=== PATIENT | male | born 1950 | race Caucasian/White ===

== ENCOUNTER → 2023-06-19 11:01 | Outpatient (REF) | payer MEDICARE, BC, SELFPAY | LOC: DHCBC/DCA 11:01 | PROVIDERS: ATTENDING PHYSICIAN Internal Medicine; FAMILY PHYSICIAN Internal Medicine | DX: E78.1 Pure hyperglyceridemia (principal); R42 Dizziness and giddiness; R06.09 Other forms of dyspnea; R94.31 Abnormal electrocardiogram [ECG] [EKG]; I45.10 Unspecified right bundle-branch block; I44.4 Left anterior fascicular block | CPT/HCPCS: 78452; 93017; A9500; J2785 ==

== ENCOUNTER → 2023-07-12 10:41 | Outpatient (REF) | payer MEDICARE, BC, SELFPAY | LOC: DHCBC HW 10:41 | PROVIDERS: ATTENDING PHYSICIAN Internal Medicine; FAMILY PHYSICIAN Internal Medicine | DX: R42 Dizziness and giddiness (principal); R06.09 Other forms of dyspnea; R94.31 Abnormal electrocardiogram [ECG] [EKG]; I45.10 Unspecified right bundle-branch block; I44.4 Left anterior fascicular block | CPT/HCPCS: 93306 ==

== ENCOUNTER → 2023-08-08 10:12 | Outpatient (REF) | payer MEDICARE, BC, SELFPAY | LOC: HWRAD 10:12 | PROVIDERS: ATTENDING PHYSICIAN Specialist; FAMILY PHYSICIAN Internal Medicine; REFERRING PHYSICIAN Internal Medicine | DX: N20.0 Calculus of kidney (principal) | CPT/HCPCS: 74176 ==

== ENCOUNTER 2023-10-25 12:23 | Emergency (ER) | payer MEDICARE, BC, SELFPAY ==
[2023-10-25 12:26] VITALS: BP 118/83
--- NOTE | 2023-10-25 12:56 | ED.GENMED ---
Addendum entered and electronically signed by Juan Fraga MD 10/26/23 08:30:
I received a call from the lab that patient's blood cultures preliminary positive for gram-negative bacteria. I spoke with the patient on the phone directly and explained results to him; he says he is still having low-grade fevers. He says he has
had bacteremia in the past multiple times. I advised him to come back to the emergency room for reassessment, repeat cultures and likely admission. He assured me he would come right away.
Original Note:
History of Present Illness
General
Chief Complaint: Fever
Time Seen by Provider: 10/25/23 12:45
History of Present Illness
History of Present Illness:
HPI: The patient reports fevers and chills for the past week. He has a history of cutaneous T-cell lymphoma. He takes Targretin orally daily and gets photopheresis. He saw his primary care doctor the day after he developed fevers and reports
having a negative COVID test at that time and was not placed on antibiotics. The doctors at [facility] did place him on fungal medication as well as a triple barrier cream regarding lesion to the left buttock. His oncologist at [facility] placed him on
ketoconazole and antibiotic ointment for the buttock lesion.
EXAM:
GENERAL: Patient appears somewhat weak and debilitated, he is afebrile with room air sats of 99%
HEENT: Moist oral mucosa
CARDIOVASCULAR: No murmurs, normal heart rate, regular rhythm, No chest wall tenderness
PULMONARY: No respiratory distress, breath sounds are clear and equal
ABDOMEN: Soft with no peritoneal signs, no tenderness
NEUROLOGIC: Excellent strength all extremities, no coordination deficits
PSYCHIATRIC: Appropriate mental status, normal insight and judgement
EXTREMITIES: Nontender, no edema, moves all extremities equally
SKIN: There is a hyperkeratotic 2 cm lesion without evidence of cellulitis to the, there is a smaller lesion to the right buttock; there are patches of erythema consistent with known history of cutaneous T-cell lymphoma
TIME OF INITIAL ENCOUNTER: 12:50 PM
NUMBER AND COMPLEXITY OF PROBLEMS ADDRESSED AT THE ENCOUNTER
� Chronic conditions affecting care: Cutaneous T-cell lymphoma, high blood pressure, hyperlipidemia, kidney stones, diabetes
� Acute Exacerbation and/or Progression of Chronic Illness: This is an acute problem
� Differential Diagnosis includes: Sepsis, bacteremia, wound infection, UTI, pneumonia, neutropenic fever
AMOUNT AND/OR COMPLEXITY OF DATA TO BE REVIEWED AND ANALYZED
� I performed an independent evaluation of and my interpretation is:
EKG:
CT:
X-rays: Chest x-ray shows no sign of pneumonia
Laboratory Studies: White count is normal at 7.1, hemoglobin normal, chemistries show BUN of 30 with creatinine of 1.2, lactic normal, total bili at 1.7 with transaminases in the 140s; urinalysis does not show any clear sign of
infection
Other:
� Review of other/old records: White count from March 2023 was 3.4, LFTs were more abnormal in 2021
� Clinical information was obtained by an independent historian:
� Prescriptions/Medications Considered but not given:
� Further testing considered but not performed: Right upper quadrant ultrasound over the patient has no pain and feels that his LFT abnormality may be related to the medication that he is on.
RISK OF COMPLICATIONS AND/OR MORBIDITY OR MORTALITY OF PATIENT MANAGEMENT
� Social determinants of health affecting care: Lives at home, gets cancer care at [facility]
� Discussion with other providers:
� Escalation of care including admission/observation vs risk of discharge considered: The patient reports fevers for the past week but is afebrile here and vital signs are not consistent with sepsis. The lesion on his left
buttock does not show any clear signs of cellulitis or wound infection. I reassessed patient at 3:05 PM. The patient's white blood cell count is normal. Mild transaminase/total bili elevation noted. In 2021, these numbers were even worse. The
patient states that the med that he is on can lead to liver abnormality�he never had any right upper quadrant pain. The patient feels comfortable with going home, he is well-appearing on reassessment.
Past History
Past History
ED Past Medical History: Cancer (T- cell Lymphoma), GERD, HTN, Hypercholesterolemia, NIDDM, Hypothyroidism and Other (sleep apnea, BPH, urinary retention, Kidney stones)
ED Past Surgical History: Brain (Craniotomy 05/02/2013 for removal of right frontal meningioma), Orthopedic (Left total knee replacement.), Urological (stent Kidney) and Other (hernia)
Social History
Tobacco: Non-smoker
Alcohol: None
Drug: None
Personal:
Living: with family
Family History
Family History: Other (Noncontributory)
Phy Exam
Physical Exam
Physical Exam:
See HPI
Course
Orders/Labs/Results
Orders:
Orders
10/25/23 12:41
Complete Blood Count/With Diff Urgent
Comprehensive Metabolic Panel Urgent
Lactic Acid Urgent
10/25/23 12:42
Blood Culture Urgent
PAT Source: Blood/Venous
Specimen Description:
10/25/23 14:11
Urinalysis Reflex To Culture Urgent
Date Specimen was Collected: 10/25/23
Time Specimen was Collected: 14:04
Urine Microscopic Reflex Cult Urgent
10/25/23 14:13
CR Chest - 2 Views Urgent
Comment:
Reason For Exam: fever
Abnormal Lab Results
10/25/23 10/25/23
12:41 14:11
Abs Immat Gran (auto) 0.1 H 10^3/uL
(0-0.05)
Absolute Lymphs (auto) 0.2 L 10^3/uL
(1.2-3.4)
Immature Gran % 0.8 H %
(0-0.5)
Neutrophils % 87.5 H %
(42.2-75.2)
Lymphocytes % 3.4 L %
(20.5-51.1)
BUN 30 H mg/dl
(9-20)
Glucose 115 H mg/dl
(70-99)
Total Bilirubin 1.7 H mg/dl
(0.2-1.3)
AST 149 H U/L
(17-59)
ALT 142 H U/L
(0-50)
Urine Ketones Trace A
(Negative)
Urine Bilirubin 1+ A
(Negative)
Urine Urobilinogen 2+ A
(Neg - 1+)
Leukocyte Esterase Rfl Trace A
(Negative)
Urine Bacteria (Reflex) Few A
(Negative)
10/25/23 12:41
10/25/23 12:41
Vital Signs
Initial and Last Documented VS:
Initial Vital Signs
Temp Pulse Resp BP Pulse Ox
97.7 F 71 22 118/83 99
10/25/23 12:26 10/25/23 12:26 10/25/23 12:26 10/25/23 12:26 10/25/23 12:26
Last Documented Vital Signs
Temp Pulse Resp BP Pulse Ox
99.3 F 85 18 106/61 92
10/25/23 14:03 10/25/23 14:03 10/25/23 14:03 10/25/23 14:03 10/25/23 14:03
*Critical Care Note
Total Time (30-74mins, 75-104mins- exclusive of procedures): Not Applicable
ED Attending Note
-
Portions of this chart may have been created with voice recognition software.� Occasional wrong word or��sound alike� substitutions may have occurred due to the inherent limitations of voice recognition software.
Discharge Plan
Departure
Prescriptions:
No Action
levothyroxine 100 MCG tablet
100 mcg PO DAILY AT 0700
ketoconazole 1 APPLIC cream
1 dose topical BIDPRN PRN (Reason: fungus)
fenofibrate nanocrystallized 145 MG tablet
217.5 mg PO QPM
acetaminophen [Tylenol Extra Strength] 500 MG tablet
1,000 mg PO BID
Actimmune 100 MCG/0.5 ML solution
0.3 ml SC MOWEFR
Hold Instructions: Resume on 05/06/22. hold until cleared by oncology
Patient Comments:
NEEDS TO BE REFRIDGERATED PT BROUGHT IN
halobetasol propionate 1 APPLIC ointment
1 applic topical BIDPRN PRN (Reason: itch, lesions, mostly on feet)
Patient Comments:
Patient uses this on the more difficult spots, he applied to bilateral feet this morning.
ezetimibe 10 MG tablet
10 mg PO QPM
Centrum Silver 1 EACH tablet
1 ea PO DAILY
amlodipine 5 MG tablet
5 mg PO DAILY
sennosides [Senokot] 8.6 mg Tablet
17.2 mg PO HS
triamcinolone acetonide 0.1 % Cream
1 applic TOPICAL BID
bisacodyl [Dulcolax (bisacodyl)] 5 mg Tablet,Delayed Release (Dr/Ec)
10 mg PO HS
ramipril 10 mg Capsule
10 mg PO DAILY
rosuvastatin [Crestor] 5 mg Tablet
5 mg PO HS
omega-3 acid ethyl esters [Lovaza] 1 gram Capsule
4 cap PO BID
aspirin 81 mg Capsule
81 mg PO DAILY
Saline Nasal 0.65 % Aerosol,[place]
2 spray INTRANASAL Q4H PRN (Reason: dry nose/congestion)
pantoprazole 40 mg Tablet,Delayed Release (Dr/Ec)
40 mg PO BID Qty: 60 0RF
amoxicillin 500 mg capsule
500 mg PO TID Qty: 6 0RF
Referrals:
Demetrius,Aaron I., DO [Family Provider] -
Interventions
Interventions:
*Risk Screen - Suicide Last Done: 10/25/23 14:23
*General Assessment Last Done: 10/25/23 14:02
*Neglect/Abuse Screening Last Done: 10/25/23 14:23
ED- Fall Risk Assessment Last Done: 10/25/23 14:23
*ED COVID-19 Vaccine History Last Done: 10/25/23 12:29
ED- Neurological Assessment Last Done: 10/25/23 14:23
Discharge Date and Time
Print Language: TANZANIAN
[2023-10-25 13:01] LABS: % Basophils 0.4 % (0-2); % Eosinophils 0.6 % (0-6); % Immature Granulocytes 0.8 % (0-0.5); % Lymphocytes 3.4 % (20.5-51.1); % Monocytes 7.3 % (1.7-9.3); % Neutrophils 87.5 % (42.2-75.2); Absolute Immature Granulocytes 0.1 10^3/uL (0-0.05); Absolute Lymphocytes 0.2 10^3/uL (1.2-3.4); Absolute Monocytes 0.5 10^3/uL (0.1-0.6); Absolute Neutrophils 6.2 10^3/uL (1.4-6.5); Hematocrit 47.7 % (39.0-52.0); Mean Corp Hgb Conc. 33.5 g/dL (33.0-37.0); Mean Corpuscular Hgb 30.2 pg (27.0-31.0); Mean Platelet Volume 9.5 fL (7.4-10.4); Nucleated Red Blood Cells % 0 % (-); Platelet Count 192 10^3/uL (130-400); Red Cell Dist. Width 12.7 % (11.5-14.5); White Blood Cell Count 7.1 10^3/uL (4.8-10.8)
[2023-10-25 13:16] LABS: ALT (SGPT) 142 U/L (0-50); AST (SGOT) 149 U/L (17-59); Albumin 4.4 g/dl (3.5-5.0); Alkaline Phosphatase 65 U/L (38-126); Blood Urea Nitrogen 30 mg/dl (9-20); Calcium 9.9 mg/dl (8.4-10.2); Carbon Dioxide 25 mmol/L (22-30); Chloride 101 mmol/L (98-107); Glucose 115 mg/dl (70-99); Potassium 4.1 mmol/L (3.5-5.1); Sodium 136 mmol/L (135-145); Total Bilirubin 1.7 mg/dl (0.2-1.3); Total Protein 7.3 g/dl (6.3-8.2); eGFR > 60.00
[2023-10-25 13:19] LABS: Lactic Acid 1.4 mmol/L (0.7-2.0)
[2023-10-25 14:03] VITALS: BP 106/61
[2023-10-25 14:21] LABS: Urine Albumin Trace (Neg - Trace); Urine Bilirubin 1+ (Negative); Urine Character Clear (Clear); Urine Color Yellow; Urine Glucose Negative (Negative); Urine Ketone Trace (Negative); Urine Leukocyte Trace (Negative); Urine Nitrite Negative (Negative); Urine Occult Blood Negative (Negative); Urine Urobilinogen 2+ (Neg - 1+); Urine pH 6.5 (5.0-9.0)
[2023-10-25 14:56] LABS: Urine Mucus Many; Urine Squamous Cell 0-2 /LPF (Few); Urine Urothelial Cell 0-2 /LPF (FEW)
[2023-10-25 14:57] LABS: Urine Amorphous Seen; Urine Bacteria Few (Negative); Urine Red Blood Cell 0-2 /HPF (0-2); Urine White Cell 0-2 /HPF (0-5)
== END 2023-10-25 15:45 | disposition home or self-care (01) ==
LOC: EMR 12:23
PROVIDERS: EMERGENCY PHYSICIAN Emergency Medicine; FAMILY PHYSICIAN Internal Medicine
DX: R50.9 Fever, unspecified (principal); R78.81 Bacteremia; C84.A0 Cutaneous T-cell lymphoma, unspecified, unspecified site; L98.8 Other specified disorders of the skin and subcutaneous tissue; I10 Essential (primary) hypertension; K21.9 Gastro-esophageal reflux disease without esophagitis; E11.9 Type 2 diabetes mellitus without complications; E03.9 Hypothyroidism, unspecified; E78.00 Pure hypercholesterolemia, unspecified; G47.30 Sleep apnea, unspecified; Z87.442 Personal history of urinary calculi; N40.1 Benign prostatic hyperplasia with lower urinary tract symptoms; R33.8 Other retention of urine; Z96.652 Presence of left artificial knee joint; Z79.82 Long term (current) use of aspirin; Z88.1 Allergy status to other antibiotic agents; Z88.8 Allergy status to other drugs, medicaments and biological substances; Z91.048 Other nonmedicinal substance allergy status
CPT/HCPCS: 99283; 71046; 80053; 81003; 81015; 83605; 85025; 87040; 87205

== ENCOUNTER 2023-10-26 14:33 | Inpatient (IN) | payer MEDICARE, BC, SELFPAY ==
[2023-10-26] VITALS (10 sets, daily range): BP systolic 75–128; BP diastolic 21–79; BMI 37.9; BMI 37.1
--- NOTE | 2023-10-26 10:09 | ED.GENMED ---
History of Present Illness
General
Chief Complaint: Fever
Source: patient
Exam Limitations: none
Time Seen by Provider: 10/26/23 09:40
Nursing documentation reviewed up to this point in time: agreed with
History of Present Illness
History of Present Illness:
73 yo male presents to the emergency department c/o fevers for past several days. History of cutaneous T-cell lymphoma blood photopheresis as well as oral chemotherapy, followed at [facility]. He had positive blood
cultures that were drawn yesterday for gram-positive bacilli. He has been diaphoretic. He last took ibuprofen at 8 AM.
Past History
Past History
ED Past Medical History: Cancer (T- cell Lymphoma), GERD, HTN, Hypercholesterolemia, NIDDM, Hypothyroidism and Other (sleep apnea, BPH, urinary retention, Kidney stones)
ED Past Surgical History: Brain (Craniotomy 05/02/2013 for removal of right frontal meningioma), Orthopedic (Left total knee replacement.), Urological (stent Kidney) and Other (hernia)
Social History
Tobacco: Non-smoker
Alcohol: None
Drug: None
Personal:
Living: with family
Family History
Family History: Other (Noncontributory)
Review of Systems
Review of Systems
Allergies reviewed?: Yes
All Other Systems: Not applicable
Constitutional: Reports fever and chills
EENT: Reports no symptoms
Respiratory: Reports no symptoms
Cardiac: Reports diaphoresis
ABD/GI: Reports no symptoms
: Reports no symptoms
Musculoskeletal: Reports no symptoms
Skin: Reports other (Chronic wound left buttock)
Neurological: Reports no symptoms
Endocrine: Reports no symptoms
Hematologic/Lymphatic: Reports no symptoms
Psychiatric: Reports no symptoms
Phy Exam
Physical Exam
Physical Exam:
Physical Exam
General: Afebrile, diaphoretic
Neck: supple. no meningeal signs. normal posterior pharynx
Heart: s1/s2 regular rate and rhythm, no murmur. equal radial
pulses.
HEENT: Pupils equal round reactive to light, EOMI
Lungs: no acute respiratory distress. clear bilaterally
Abdomen: normal bowel sounds. not tender. no CVAT
Neuro: alert and oriented. no focal neurological deficits cranial nerves II through XII intact
Skin: Healing wound left buttocks, no drainage
Psychiatric: well kept. interactive and cooperative
Extremities: no edema. no calf tenderness. negative homans. good distal pulses
Course
Orders/Labs/Results
Orders:
Orders
10/26/23 09:55
IV Insert/Care/Rem.- Treatment PRN
Complete Blood Count/With Diff Urgent
Comprehensive Metabolic Panel Urgent
Urinalysis Reflex To Culture Urgent
10/26/23 09:59
Cefepime HCl [Maxipime] 2,000 mg IV NOW STA
10/26/23 10:00
Lactic Acid Q4H
Comment: CANCEL 2nd LACTIC ACID IF 1st LACTIC ACID IS LESS THAN 2
Blood Culture Q30M
PAT Source: Blood/Venous
Specimen Description:
10/26/23 10:30
Blood Culture Q30M
PAT Source: Blood/Venous
Specimen Description:
10/26/23 14:00
Lactic Acid Q4H
Comment: CANCEL 2nd LACTIC ACID IF 1st LACTIC ACID IS LESS THAN 2
Vital Signs
Initial and Last Documented VS:
Initial Vital Signs
Temp Pulse Resp BP Pulse Ox
98.4 F 92 18 113/71 92
10/26/23 09:33 10/26/23 09:33 10/26/23 09:33 10/26/23 09:33 10/26/23 09:33
Last Documented Vital Signs
Temp Pulse Resp BP Pulse Ox
98.4 F 92 18 113/71 92
10/26/23 09:33 10/26/23 09:33 10/26/23 09:33 10/26/23 09:33 10/26/23 09:33
MDM/Problems Addressed
Differential Diagnosis Includes:
Bacteremia, UTI
MDM/Problems Addressed:
73-year-old male with bacteremia, unclear source. IV cefepime ordered. Repeat set of blood cultures ordered. Admit to hospitalist.
Chronic conditions affecting care: Cancer (Cutaneous T-cell lymphoma)
Acute Exacerbation and/or Progression of Chronic Illness: Cancer (Cutaneous T-cell lymphoma)
*Pulse Oximetry
Patient hypoxic: no
*EKG
Interpreted by ED Provider?: NA
*Therapeutic Dietitian Interpretation
Rate: Therapeutic Dietitian- N/A
*Critical Care Note
Total Time (30-74mins, 75-104mins- exclusive of procedures): Not Applicable
Data Reviewed
Review of Other/Old Records Reveals: Progress Notes (Prior visits for bacteremia, of which were of a GI source in the past.)
Source: records
Patient Management
Social determinants of health affecting care: Strong social support
Discussion with other providers: Hospitalist
Escalation/DeEscalation of care consider admission/obs:
Admit indicated
ED Attending Note
-
Portions of this chart may have been created with voice recognition software.� Occasional wrong word or��sound alike� substitutions may have occurred due to the inherent limitations of voice recognition software.
Discharge Plan
Departure
Admit to: Med/Surg
Presentation/result/management discussed w/ accepting MD/DO: Hospitalist
Patient with high blood pressure during this ER visit?: No
Condition: Fair
Discharge Problem:
Gram-negative bacteremia, Cutaneous T-cell lymphoma
Prescriptions:
No Action
levothyroxine 100 MCG tablet
100 mcg PO DAILY AT 0700
ketoconazole 1 APPLIC cream
1 dose topical BIDPRN PRN (Reason: fungus)
fenofibrate nanocrystallized 145 MG tablet
217.5 mg PO QPM
acetaminophen [Tylenol Extra Strength] 500 MG tablet
1,000 mg PO BID
Actimmune 100 MCG/0.5 ML solution
0.3 ml SC MOWEFR
Hold Instructions: Resume on 05/06/22. hold until cleared by oncology
Patient Comments:
NEEDS TO BE REFRIDGERATED PT BROUGHT IN
halobetasol propionate 1 APPLIC ointment
1 applic topical BIDPRN PRN (Reason: itch, lesions, mostly on feet)
Patient Comments:
Patient uses this on the more difficult spots, he applied to bilateral feet this morning.
ezetimibe 10 MG tablet
10 mg PO QPM
Centrum Silver 1 EACH tablet
1 ea PO DAILY
amlodipine 5 MG tablet
5 mg PO DAILY
sennosides [Senokot] 8.6 mg Tablet
17.2 mg PO HS
triamcinolone acetonide 0.1 % Cream
1 applic TOPICAL BID
bisacodyl [Dulcolax (bisacodyl)] 5 mg Tablet,Delayed Release (Dr/Ec)
10 mg PO HS
ramipril 10 mg Capsule
10 mg PO DAILY
rosuvastatin [Crestor] 5 mg Tablet
5 mg PO HS
omega-3 acid ethyl esters [Lovaza] 1 gram Capsule
4 cap PO BID
aspirin 81 mg Capsule
81 mg PO DAILY
Saline Nasal 0.65 % Aerosol,[place]
2 spray INTRANASAL Q4H PRN (Reason: dry nose/congestion)
pantoprazole 40 mg Tablet,Delayed Release (Dr/Ec)
40 mg PO BID Qty: 60 0RF
amoxicillin 500 mg capsule
500 mg PO TID Qty: 6 0RF
Referrals:
Aaron Romo I., DO [Family Provider] -
Interventions
Interventions:
*General Assessment Last Done: 10/26/23 09:33
*ED COVID-19 Vaccine History Last Done: 10/26/23 09:33
Discharge Date and Time
Print Language: VENEZUELAN
[2023-10-26] MEDS: MAXIPIME 2000 MG IV ×2 (10:45→21:39)
[2023-10-26 11:22] LABS: % Basophils 0.6 % (0-2); % Eosinophils 0.4 % (0-6); % Immature Granulocytes 0.9 % (0-0.5); % Lymphocytes 6.9 % (20.5-51.1); % Monocytes 11.5 % (1.7-9.3); % Neutrophils 79.7 % (42.2-75.2); Absolute Immature Granulocytes 0.1 10^3/uL (0-0.05); Absolute Lymphocytes 0.5 10^3/uL (1.2-3.4); Absolute Monocytes 0.8 10^3/uL (0.1-0.6); Absolute Neutrophils 5.4 10^3/uL (1.4-6.5); Hematocrit 47.1 % (39.0-52.0); Hemoglobin 15.9 g/dL (13.0-18.0); Mean Corp Hgb Conc. 33.8 g/dL (33.0-37.0); Mean Corpuscular Hgb 30.3 pg (27.0-31.0); Mean Corpuscular Volume 89.9 fL (80.0-94.0); Mean Platelet Volume 9.8 fL (7.4-10.4); Nucleated Red Blood Cells % 0 % (-); Platelet Count 212 10^3/uL (130-400); Red Blood Cell Count 5.24 10^6/uL (4.70-6.10); Red Cell Dist. Width 12.9 % (11.5-14.5); White Blood Cell Count 6.8 10^3/uL (4.8-10.8)
[2023-10-26 11:31] LABS: Urine Albumin Trace (Neg - Trace); Urine Bilirubin 2+ (Negative); Urine Character Clear (Clear); Urine Color Brown; Urine Glucose Negative (Negative); Urine Ketone Trace (Negative); Urine Leukocyte Trace (Negative); Urine Nitrite Negative (Negative); Urine Occult Blood Negative (Negative); Urine Urobilinogen 2+ (Neg - 1+)
[2023-10-26 11:32] LABS: ALT (SGPT) 146 U/L (0-50); AST (SGOT) 112 U/L (17-59); Albumin 4.3 g/dl (3.5-5.0); Alkaline Phosphatase 61 U/L (38-126); Blood Urea Nitrogen 33 mg/dl (9-20); Calcium 9.6 mg/dl (8.4-10.2); Carbon Dioxide 28 mmol/L (22-30); Chloride 98 mmol/L (98-107); Estimated Creatinine Clearance 57 ml/min; Glucose 118 mg/dl (70-99); Potassium 3.7 mmol/L (3.5-5.1); Sodium 137 mmol/L (135-145); Total Bilirubin 2.2 mg/dl (0.2-1.3); Total Protein 7.2 g/dl (6.3-8.2); eGFR 48.85
[2023-10-26 11:47] LABS: Urine Bacteria Few (Negative); Urine Calcium Oxalate Crystals Seen
[2023-10-26] MEDS: TYLENOL 650 MG PO (12:35)
--- NOTE | 2023-10-26 15:07 | CON.ONC ---
Addendum entered and electronically signed by Lasha Wang DO 10/27/23 13:30:
agree with assessment and plan by Sheila-- await cultures and plans for antibiotic therapy to follow
Original Note:
Impression
Impression
Cutaneous T-cell lymphoma s/p photopheresis and oral chemotherapy (Targretin)
Fever/chills with rigors
Acute bacteremia
Non-healing left buttock wound
Plan
Plan
Follow CBC w/ diff daily
Transfuse as needed to maintain Hgb >7.5, PLT >>20
Positive blood cultures in progress - await final results
Consider Infectious Disease consult: wound culture/urine culture
Supportive care with IVF, IV antibiotics
Additional labs have been ordered and remain pending: LDH, retic, haptoglobin, uric acid
Request records from [facility]
Discussed with patient and spouse to bring home medications in for pharmacy profiling
We will follow.
Patient History
History of Present Illness
Evan Muniz is a 73 year old patient previously known to Dr. Purdy with [facility] for history of T-cell lymphoma/mycoses fungoides. He was last seen in with us in Apr 2016 as he was coordinating care between [facility] and [facility] for medication
management. He has photopheresis Q7 weeks and is maintained on Targretin. He notes that in 2021, he experienced fever/chills/sepsis approximately 2 weeks following photopheresis treatment. He notes at this time, it was difficult to locate the source
of the infection but he believes it to be GI. He had his most recent photo treatment the first week of October 2023. He began to experience rigors and fevers at home with T max 101.8. He went to his PCP. He had been taking Ibuprofen/Tylenol which
masked his fever when he went to PCP office. Preliminary blood cultures were positive and he was instructed to return to the ER for further evaluation/treatment. He notes a non-healing wound on his left buttocks that is draining. He is using topical
triple paste and was prescribed antifungals. He states despite this treatment, it is not healing. He also has wounds to bilateral palms and elbows. He denies evidence of bleeding elsewhere. Denies pain, night sweats or weight loss. He follows
closely with Dr. Gauri Jacinto at [facility]. He notes that for him a WBC count of 6-7 is high as he historically has WBC count of 3-4. He is being admitted for IV antibiotics.
Past-Medical/Surgical History
[facility] meningioma s/p resection (2012)
Hypertension
Hypercholesterolemia
GERD
Cataracts
Arthritis
Hernia repair (1989)
Left TKR (2011)
Nephrolithiasis
Hypothyroidism
DM
SHYAM
BPH
Patient Medication
�Medication �Instructions �Recorded �Confirmed �Last Taken �Type
levothyroxine 100 mcg tablet 100 mcg PO DAILY@0600 Thyroid 09/01/15 10/26/23 10/26/23 History
acetaminophen 500 mg tablet 1,000 mg PO BID Pain 11/18/15 10/26/23 10/25/23 History
(Tylenol Extra Strength)
ezetimibe 10 mg tablet 10 mg PO QPM High cholesterol 09/13/20 10/26/23 10/25/23 History
halobetasol propionate 0.05 % 1 applic topical DAILY foot lesions 09/13/20 10/26/23 03/02/21 20:00 History
topical ointment
aspirin 81 mg capsule 81 mg PO DAILY Blood clot 04/14/22 10/26/23 10/25/23 History
prevention/tx
bisacodyl 5 mg tablet,delayed 10 mg PO HS Constipation 04/14/22 10/26/23 10/25/23 History
release (Dulcolax (bisacodyl))
ramipril 10 mg capsule 10 mg PO DAILY Blood pressure 04/14/22 10/26/23 10/26/23 History
triamcinolone acetonide 0.1 % 1 applic topical TIDPRN PRN hand 04/14/22 10/26/23 Unknown History
topical cream pain
bexarotene 75 mg capsule 75 mg PO QPM Cancer 10/26/23 10/26/23 10/25/23 History
chlorthalidone 50 mg tablet 50 mg PO DAILY Blood Pressure 10/26/23 10/26/23 10/26/23 History
coenzyme Q10 100 mg capsule 100 mg PO DAILY Supplement 10/26/23 10/26/23 10/25/23 History
(CoQ-10)
diclofenac sodium 1 % topical gel 2 g topical QID bilateral knee pain 10/26/23 10/26/23 10/25/23 History
(Aspercreme Arthritis Pain)
docusate sodium 50 mg capsule 150 mg PO HS Constipation 10/26/23 10/26/23 10/25/23 History
fenofibrate 160 mg tablet 320 mg PO QPM High Cholesterol 10/26/23 10/26/23 10/25/23 History
fenofibrate 40 mg tablet 40 mg PO QPM High Cholesterol 10/26/23 10/26/23 10/25/23 History
ibuprofen 600 mg tablet 600 mg PO DAILY Pain 10/26/23 10/26/23 10/26/23 History
icosapent ethyl 1 gram capsule 2 g PO BID High Cholesterol 10/26/23 10/26/23 10/26/23 History
interferon gamma-1b (Actimmune) 66 mcg SC MOWEFR@1800 Cancer 10/26/23 10/26/23 10/24/23 History
magnesium glycinate 1.5 tab PO MOWEFR Electrolyte 10/26/23 10/26/23 10/26/23 History
Repletion
magnesium glycinate 470 mg PO SUTUTHSA Electrolyte 10/26/23 10/26/23 10/25/23 History
Repletion
mechlorethamine 0.016 % topical 1 applic topical HS cancer skin 10/26/23 10/26/23 10/22/23 History
gel (Valchlor) patches
mupirocin 2 % topical ointment 1 applic topical BID buttocks 10/26/23 10/26/23 10/25/23 History
pantoprazole 40 mg tablet,delayed 40 mg PO DAILY Gastrointestinal 10/26/23 10/26/23 10/26/23 History
release Issue
therapeutic multivitamin 1 tab PO DAILY Supplement 10/26/23 10/26/23 10/26/23 History
Review of Systems
-
History Source: Patient, Family and Records
Constitutional: Reports No Symptoms
EENT: Reports No Symptoms
Respiratory: Reports No Symptoms
Cardiac: Reports No Symptoms
GI: Reports No Symptoms
Breast: Reports N/A
: Reports No Symptoms
Musculoskeletal: Reports Myalgias
Skin: Reports Rash and Sores
Neuro: Reports No Symptoms
Endocrine: Reports No Symptoms
Hematologic/Lymphatic: Reports No Symptoms
Allergy / Immunology: Reports No Symptoms
Psych: Reports No Symptoms
Physical Exam
-
Patient sitting on the side of the stretcher awaiting transfer to fourth floor. Spouse at bedside. He denies fevver/chills at this time.
General: Well Developed, Well Nourished, No Apparent Distress, Comfortable, Conversant, Appears Chronically Ill and Obese; Negative Pain, Fever, Chills or Sweats
HEENT: Negative Jaundice
Cardiology: S1 and S2
Pulmonary: Other (diminished, Room air )
GI: Normal Bowel Sounds
Musculoskeletal: No Edema
Extremities: Pulses Present
Neurology: Non Focal
Skin: Warm, Dry, Rash, Ulcers, Lesions and Other (left buttock wound, b/l peeling palmar rash, dry skin, pallor)
Hematologic / Lymphatic: No Lymphadenopathy
Psych: Calm
Labs
Lab Results
WBC 6.8 10^3/uL (4.8-10.8) 10/26/23 10:54
RBC 5.24 10^6/uL (4.70-6.10) 10/26/23 10:54
Hgb 15.9 g/dL (13.0-18.0) 10/26/23 10:54
Hct 47.1 % (39.0-52.0) 10/26/23 10:54
MCV 89.9 fL (80.0-94.0) 10/26/23 10:54
MCH 30.3 pg (27.0-31.0) 10/26/23 10:54
MCHC 33.8 g/dL (33.0-37.0) 10/26/23 10:54
RDW 12.9 % (11.5-14.5) 10/26/23 10:54
Plt Count 212 10^3/uL (130-400) 10/26/23 10:54
MPV 9.8 fL (7.4-10.4) 10/26/23 10:54
Abs Immat Gran (auto) 0.1 10^3/uL (0-0.05) H 10/26/23 10:54
Absolute Neuts (auto) 5.4 10^3/uL (1.4-6.5) 10/26/23 10:54
Absolute Lymphs (auto) 0.5 10^3/uL (1.2-3.4) L 10/26/23 10:54
Absolute Monos (auto) 0.8 10^3/uL (0.1-0.6) H 10/26/23 10:54
Absolute Eos (auto) 0.0 10^3/uL (0-0.7) 10/26/23 10:54
Absolute Basos (auto) 0.0 10^3/uL (0-0.2) 10/26/23 10:54
Immature Gran % 0.9 % (0-0.5) H 10/26/23 10:54
Neutrophils % 79.7 % (42.2-75.2) H 10/26/23 10:54
Lymphocytes % 6.9 % (20.5-51.1) L 10/26/23 10:54
Monocytes % 11.5 % (1.7-9.3) H 10/26/23 10:54
Eosinophils % 0.4 % (0-6) 10/26/23 10:54
Basophils % 0.6 % (0-2) 10/26/23 10:54
Creatinine 1.5 mg/dL (0.7-1.3) H 10/26/23 10:54
Vital Signs
Vital Signs
Temp Pulse Resp BP Pulse Ox
98.4 F 78 18 128/62 92
10/26/23 09:33 10/26/23 13:00 10/26/23 13:00 10/26/23 13:00 10/26/23 09:33
10/25/23 CXR: No findings to suggest pneumonia.
--- NOTE | 2023-10-26 16:14 | CON.ID ---
Consultation
-
Date/Time Consultation Requested: 10/26/23 14:48
Date/Time Consultation Performed: 10/26/23 16:16
Requesting Provider: Dr Gonzalez
Performing Provider: Dr Medina
Reason for Consultation: GNR bacteremia
Chief Complaint / Past History
Chief Complaint
fevers
History of Present Illness
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 He reports nonhealing wound on timmy L buttocks with drainae. He has been using OTC
tripple antibiotic cream and antifungals. There ae also wounds on the bilateral palms and elbows. No night sweats or weight loss. His baseline WBC is 3-4 and oncology comments at 6-7 is high for him. He has blood cultures drawn outpatient which
resulted with GNR and he presented here for further management.
Since arrival here afebrile, bp stable, with wbc 7.1 on arrival and 6.8 today, hgb 15.9, plt 212,L shift is noted, eos are present, cr 1.5 previously 1.2, K 3.7, lactic acid 1.0, t bili 2.2, ast 112, alt 146, alk phos 61, CXR: no infiltrates 10/24
single blood culture on file here with GNR, blood cultures x2 now in progress, ua 6-10 wbc/hpf,
Past History
Additional Past Medical History:
Combined medical and surgical history:
[employer] meningioma s/p resection (2012)
Hypertension
Hypercholesterolemia
GERD
Cataracts
Arthritis
Hernia repair (1989)
Left TKR (2011)
Nephrolithiasis
Hypothyroidism
DM
SHYAM
BPH
Allergy History:
azithromycin Allergy (Verified 10/26/23 09:34)
Rash
pollen extracts Allergy (Verified 10/26/23 09:34)
Hayfever, rosefever
tamsulosin [From Flomax] Allergy (Verified 10/26/23 09:34)
Dizziness
Olgoqol-JXT-UbI Reductase Inhibitor Adverse Reaction (Verified 10/26/23 09:34)
'sometimes they bother me but I am on one now'
Social History
Tobacco: Non-Smoker
Alcohol: None
Drug: None
Family History
Family History: Not Pertinent
Review of Systems
Review of Systems
General: Fever and Chills
All systems: All other systems were reviewed and were negative
Vital Signs
Temp Pulse Resp BP Pulse Ox
98.4 F 80 14 110/73 92
10/26/23 09:33 10/26/23 15:45 10/26/23 15:45 10/26/23 15:00 10/26/23 09:33
Physical Exam
Physical Exam
Constitutional: No Acute Distress
Cardiovascular: Regular Rate and S1/S2; Negative Murmur or Rub
Pulmonary: Clear and Symmetric; Negative Wheezes, Rales or Rhonchi
Gastrointestinal: Soft, Non Tender, Non Distended and Normal Bowel Sounds
Skin: Warm and Dry; Negative Rash or Jaundice
Wound: Other (open wounds on the palms without erythema, warmth tenderness; buttock wound with scant drainage on the briefs, elbows rough skin but no wounds)
Lab / Diagnostic Study Results
10/26/23 10:54
10/26/23 10:54
Abs Immat Gran (auto) 0.1 10^3/uL (0-0.05) H 10/26/23 10:54
Absolute Neuts (auto) 5.4 10^3/uL (1.4-6.5) 10/26/23 10:54
Absolute Lymphs (auto) 0.5 10^3/uL (1.2-3.4) L 10/26/23 10:54
Absolute Monos (auto) 0.8 10^3/uL (0.1-0.6) H 10/26/23 10:54
Absolute Basos (auto) 0.0 10^3/uL (0-0.2) 10/26/23 10:54
Immature Gran % 0.9 % (0-0.5) H 10/26/23 10:54
Neutrophils % 79.7 % (42.2-75.2) H 10/26/23 10:54
Lymphocytes % 6.9 % (20.5-51.1) L 10/26/23 10:54
Monocytes % 11.5 % (1.7-9.3) H 10/26/23 10:54
Eosinophils % 0.4 % (0-6) 10/26/23 10:54
Basophils % 0.6 % (0-2) 10/26/23 10:54
Lactic Acid 1.0 mmol/L (0.7-2.0) 10/26/23 10:54
Ur Squamous Epith Cells 3-5 /LPF (Few) 10/26/23 10:55
Microbiology Results
Micro:
10/26/23 10:54 Blood Culture - Pending
Blood/Venous
10/26/23 10:55 Blood Culture - Pending
Blood/Venous
Assessment / Plan
GNR Bacteremia
Relative Leukocytosis - patient baseline 3-4
Cutaneous T cell Lymphoa on chemotherapy
Class II obesity
- blood cultures x2 in progress
- check qtc
- continued cefepime pending ID and sensi of the GNR
- follow fever curve, note relative leukocytosis compared to patients baseline
[2023-10-26 16:35] LABS: Reticulocyte Count 1.9 % (0.4-2.8)
[2023-10-26 16:51] LABS: LDH 234 U/L (120-246); Uric Acid 6.4 mg/dl (3.5-8.5)
--- NOTE | 2023-10-26 17:19 | TRANSFER ---
Pt admitted into room 435-1 from ED, ambulated from stretcher to walker, at bedside. Pt AAOx3. Wounds noted to the BL buttock, BL palms, and BL plantar feet, wound consult placed. Patient oriented to room and plan of care. Home medications sent
to pharmacy.
[2023-10-26] MEDS: LOVENOX 40 MG SC (18:25)
[2023-10-26] MEDS: ZETIA 10 MG PO (18:25)
[2023-10-26] MEDS: TRICOR 48 MG PO (18:25)
[2023-10-26] MEDS: TRICOR 290 MG PO (18:25)
[2023-10-26] MEDS: DICLOFENAC 1% TOPICAL GEL 2 GRAM TOPICAL ×2 (18:26→23:16)
[2023-10-26] MEDS: NON-FORMULARY ITEM 75 MG PO (18:26)
--- NOTE | 2023-10-26 20:34 | HPS.HSE ---
Addendum entered and electronically signed by Leisa Mccollum MD 10/26/23 21:13:
Patient seen and examined independently--agree with plan set forth by Dr. Martinez
Allergies
Allergy/AdvReac Type Severity Reaction Status Date / Time
azithromycin Allergy Rash Verified 10/26/23 09:34
pollen extracts Allergy Hayfever, Verified 10/26/23 09:34
rosefever
Wqbainc-PQS-FwH Reductase Allergy 'sometimes Verified 10/26/23 16:18
Inhibitor they
bother me
but I am
on one now'
tamsulosin [From Flomax] Allergy Dizziness Verified 10/26/23 09:34
Home Medications
levothyroxine 100 mcg tablet 100 mcg PO DAILY@0600 Thyroid 09/01/15
acetaminophen 500 mg tablet (Tylenol Extra Strength) 1,000 mg PO BID Pain 11/18/15
ezetimibe 10 mg tablet 10 mg PO QPM High cholesterol 09/13/20
halobetasol propionate 0.05 % topical ointment 1 applic topical DAILY foot lesions 09/13/20
aspirin 81 mg capsule 81 mg PO DAILY Blood clot prevention/tx 04/14/22
bisacodyl 5 mg tablet,delayed release (Dulcolax (bisacodyl)) 10 mg PO HS Constipation 04/14/22
ramipril 10 mg capsule 10 mg PO DAILY Blood pressure 04/14/22
triamcinolone acetonide 0.1 % topical cream 1 applic topical TIDPRN PRN hand pain 04/14/22
bexarotene 75 mg capsule 75 mg PO QPM Cancer 10/26/23
chlorthalidone 50 mg tablet 50 mg PO DAILY Blood Pressure 10/26/23
coenzyme Q10 100 mg capsule (CoQ-10) 100 mg PO DAILY Supplement 10/26/23
diclofenac sodium 1 % topical gel (Aspercreme Arthritis Pain) 2 g topical QID bilateral knee pain 10/26/23
docusate sodium 50 mg capsule 150 mg PO HS Constipation 10/26/23
fenofibrate 160 mg tablet 320 mg PO QPM High Cholesterol 10/26/23
fenofibrate 40 mg tablet 40 mg PO QPM High Cholesterol 10/26/23
ibuprofen 600 mg tablet 600 mg PO DAILY Pain 10/26/23
icosapent ethyl 1 gram capsule 2 g PO BID High Cholesterol 10/26/23
interferon gamma-1b (Actimmune) 66 mcg SC MOWEFR@1800 Cancer 10/26/23
magnesium glycinate 1.5 tab PO MOWEFR Electrolyte Repletion 10/26/23
magnesium glycinate 470 mg PO SUTUTHSA Electrolyte Repletion 10/26/23
mechlorethamine 0.016 % topical gel (Valchlor) 1 applic topical HS cancer skin patches 10/26/23
mupirocin 2 % topical ointment 1 applic topical BID buttocks 10/26/23
pantoprazole 40 mg tablet,delayed release 40 mg PO DAILY Gastrointestinal Issue 10/26/23
therapeutic multivitamin 1 tab PO DAILY Supplement 10/26/23
GENERAL: well developed, well nourished, male in no apparent distress
HEENT: NC/AT--no O2 requirements
HEART: regular rate and rhythm, +S1, +S2
LUNGS : clear to auscultation bilaterally
ABDOM: soft, nontender, nondistended, + bowel sounds
EXT: no cyanosis, clubbing, or edema
NEUROLOGIC: grossly intact
SKIN: multiple scaly/scab patches on elbows, palms, legs--has 2 small nonhealing wounds on bilateral buttocks (POA)
Fever/chills--pt seen in the emergency department 10/25/2023--cultures were drawn at that time--patient reports receiving a phone call stating that his cultures were positive and to return to the emergency department--Patient is afebrile on
admission--WBC 6.8 (baseline white blood cell count for him is [id number])--Lactate 1.0--Chest x-ray 10/25/2023�no evidence of pneumonia--Blood cultures 10/25/2023reliminary�gram-negative bacilli--Continue cefepime--ID consulted--Oncology consulted
Cutaneous T-cell lymphoma--immunosuppressed due to Interferon Gamma and Bexarotene--apprec onc--Additional labs have been ordered: LDH, retic, haptoglobin, uric acid as per onc--follows at [facility]
Mild transaminitis--Bilirubin 2.2, AST 112, ALT 146, Alkaline phosphatase 61--CT abdomen pelvis on 08/08/2023�evidence of cholelithiasis--Patient is asymptomatic--Will trend CMP.
[employer] meningioma s/p resection 2012
Essential Hypertension
Hyperlipidemia--specifically triglycerides--(clog up phoresis machine)--cont icosapent ethyl, fenofibrate, zetia--pt intolerant to statins
GERD--cont protonix
Arthritis--noted
Nephrolithiasis--calcium oxalate stones--trying diet control
Hypothyroidism--cont levothyroxine
Type 2 DM -- diet controlled
SHYAM--noted
BPH--no symptoms
DVT prophylaxis--Lovenox
code status -- FULL CODE
Original Note:
Family Physician
-
Family Physician: Aaron Romo
Chief Complaint
-
Fever, chills
History of Present Illness
73 year old male patient with past medical history significant for cutaneous T-cell lymphoma undergoing photopheresis presented reporting fever/chills since 2 weeks . Not accompanied with chest pain, cough, headache, nausea, vomiting, abdominal
pain, hematuria, diarrhea. He had his most recent photo treatment the first week of October 2023. He began to experience rigors and fevers with a temperature up to 101.8. He went to his PCP. He had been taking Ibuprofen/Tylenol which masked his fever
when he went to PCP office. Preliminary blood cultures were positive and he was instructed to return to the ER for further evaluation/treatment. Patient reports having wounds on his palms bilaterally, skin lesions on the lower extremities and a
nonhealing wound on his left buttock, which sometimes drains fluid. Denies pain, night sweats or weight loss. He has his oncology team at [place] Dr. Gauri Jacinto. He notes that for him a WBC count of 6-7 is high as he historically has WBC count of
3-4. He has a history of hyperlipidemia, on ezetimibe and fenofibrate and sometimes has high lipid levels which do not allow the photopheresis machine to function properly. Patient reports that he was admitted before for symptoms like these and
treated with antibiotics and these episodes happen every time after his photopheresis treatment.
Medical History
Past Medical History
Past Medical History: Reports GERD, HTN, Hypercholesterolemia, Hypothyroidism and NIDDM
Additional Past Medical History:
[employer] meningioma s/p resection 2012
Hypertension
Hypercholesterolemia
GERD
Cataracts
Arthritis
Hernia repair
Left TKR
Nephrolithiasis
Hypothyroidism
DM
SHYAM
BPH
Past Surgical History: Reports Brain
Social History
Tobacco: Non-smoker
Alcohol: None
Drug: None
Family History
Family History: Not pertinent
Allergies / Home Medications
Allergies reflects when Allergies were last updated in [facility].
Patient Allergies
Allergy/AdvReac Type Severity Reaction Status Date / Time
azithromycin Allergy Rash Verified 10/26/23 09:34
pollen extracts Allergy Hayfever, Verified 10/26/23 09:34
rosefever
Qvnofof-WNB-XmQ Reductase Allergy 'sometimes Verified 10/26/23 16:18
Inhibitor they
bother me
but I am
on one now'
tamsulosin [From Flomax] Allergy Dizziness Verified 10/26/23 09:34
Home Medications with original date entered in [facility]
Allergy/Medication List:
.
Review of Systems
-
History Source: Patient
A 12 point ROS was completed and negative except as noted: Yes
Physical Exam
Vital Signs
Vital Signs
Temp Pulse Resp BP Pulse Ox
98.6 F 80 20 126/76 95
10/26/23 16:26 10/26/23 16:26 10/26/23 16:26 10/26/23 16:26 10/26/23 16:26
Physical Exam
General: Well Developed and Well Nourished
HEENT: NormoCephalic and Anicteric
Respiratory: Clear
Cardiac: S1/S2
GI: Soft, Non Tender, Non Distended and Normal Bowel Sounds
Skin: Other (Erythematous lesions on the lower extremities, open wounds on the palms without erythema, warmth tenderness; buttock wound with scant drainage on the briefs, elbows rough skin but no wounds, )
Neuro: Awake, Alert, Oriented and AO x 3
Hematologic/Lymphatic: No Lymphadenopathy
Psych: Calm
Laboratory Results
-
10/26/23 10:54
10/26/23 10:54
Laboratory Results
Lactic Acid Cancelled 10/26/23 14:00
Total Bilirubin 2.2 mg/dl (0.2-1.3) H 10/26/23 10:54
AST 112 U/L (17-59) H 10/26/23 10:54
ALT 146 U/L (0-50) H 10/26/23 10:54
Alkaline Phosphatase 61 U/L (38-126) 10/26/23 10:54
Impression/Plan
-
IMPRESSION:
Fever/chills
Cutaneous T-cell lymphoma
Mild transaminitis
PLAN:
#Fever/chills
Patient is afebrile on admission
WBC 6.8
Lactate 1.0
Chest x-ray 10/25/2023�no evidence of pneumonia
Blood cultures 10/25/2023reliminary�gram-negative bacilli
Continue cefepime
Monitor fever curve
Trend CBC
ID consulted
Oncology consulted
#Cutaneous T-cell lymphoma
Oncology consulted
#Mild transaminitis
Bilirubin 2.2
AST 112
ALT 146
Alkaline phosphatase 61
CT abdomen pelvis on 08/08/2023�evidence of cholelithiasis
Patient is asymptomatic
Will trend CMP.
#DVT prophylaxis
Lovenox
[2023-10-26] MEDS: NON-FORMULARY ITEM 1 MG PO (20:45)
[2023-10-26] MEDS: STERILE WATER FOR INJECTION 10 ML IV (21:38)
[2023-10-26] MEDS: BACTROBAN 2% OINTMENT 1 APPLIC TOPICAL (23:12)
[2023-10-26] MEDS: ARISTOCORT/TRIAMCINOLONE 0.1% CREAM 1 APPLIC TOPICAL (23:12)
[2023-10-26] MEDS: TYLENOL 1000 MG PO (23:15)
[2023-10-26] MEDS: NON-FORMULARY ITEM 66 MCG SC (23:22)
--- NOTE | 2023-10-27 00:42 | PTCARENOTE ---
pt has been irritated since the beginning of the shift concerning his meds. Pt wants his med at a specific time and certain type. RN has been communicating with pharmacy to fix his MAR. Pt is easily agitated and taking his frustration towards staff.
Pt was informed to bring his own meds to accommodated his needs and wants.
[2023-10-27] MEDS: SYNTHROID 100 MCG PO (05:58)
[2023-10-27 06:44] LABS: % Basophils 0.5 % (0-2); % Eosinophils 1.9 % (0-6); % Immature Granulocytes 1.4 % (0-0.5); % Lymphocytes 9.6 % (20.5-51.1); % Monocytes 16.4 % (1.7-9.3); % Neutrophils 70.2 % (42.2-75.2); Absolute Eosinophils 0.1 10^3/uL (0-0.7); Absolute Immature Granulocytes 0.1 10^3/uL (0-0.05); Absolute Lymphocytes 0.4 10^3/uL (1.2-3.4); Absolute Monocytes 0.7 10^3/uL (0.1-0.6); Hematocrit 43.2 % (39.0-52.0); Hemoglobin 14.9 g/dL (13.0-18.0); Mean Corp Hgb Conc. 34.5 g/dL (33.0-37.0); Mean Corpuscular Hgb 30.1 pg (27.0-31.0); Mean Corpuscular Volume 87.3 fL (80.0-94.0); Mean Platelet Volume 9.5 fL (7.4-10.4); Nucleated Red Blood Cells % 0 % (-); Platelet Count 203 10^3/uL (130-400); Red Blood Cell Count 4.95 10^6/uL (4.70-6.10); White Blood Cell Count 4.3 10^3/uL (4.8-10.8)
[2023-10-27 07:00] VITALS: BP 121/77
--- NOTE | 2023-10-27 07:05 | W.PN.HOSP.TC ---
Addendum entered and electronically signed by Leisa Mccollum MD 10/27/23 15:15:
pt seen and examined independently--agree with plan set forth by Dr. Martinez
GENERAL: well developed, well nourished, male in no apparent distress
HEENT: NC/AT--no O2 requirements
HEART: regular rate and rhythm, +S1, +S2
LUNGS : clear to auscultation bilaterally
ABDOM: soft, nontender, nondistended, + bowel sounds
EXT: no cyanosis, clubbing, or edema
NEUROLOGIC: grossly intact
SKIN: multiple scaly/scab patches on elbows, palms, legs--has 2 small nonhealing wounds on bilateral buttocks (POA)
Fever/chills--pt seen in the emergency department 10/25/2023--cultures were drawn at that time--patient reports receiving a phone call stating that his cultures were positive and to return to the emergency department--Patient is afebrile on
admission--WBC 6.8 (baseline white blood cell count for him is [id number])--Lactate 1.0--Chest x-ray 10/25/2023�no evidence of pneumonia--Blood cultures 10/25/2023�E. coli--Continue cefepime--apprec ID/onc --anticipate d/c home on oral ABX tomorrow
Cutaneous T-cell lymphoma--immunosuppressed due to Interferon Gamma and Bexarotene--apprec onc--Additional labs have been ordered: LDH, retic, haptoglobin, uric acid as per onc--follows at [facility]
Mild transaminitis---CT abdomen pelvis on 08/08/2023�evidence of cholelithiasis--Patient is asymptomatic--Will trend
[employer] meningioma s/p resection 2012
Essential Hypertension
Hyperlipidemia--specifically triglycerides--(clogs up phoresis machine)--cont icosapent ethyl, fenofibrate, zetia--pt intolerant to statins
GERD--cont protonix
Arthritis--noted
Nephrolithiasis--calcium oxalate stones--trying diet control
Hypothyroidism--cont levothyroxine
Type 2 DM -- diet controlled
SHYAM--noted
BPH--no symptoms
DVT prophylaxis--Lovenox
code status -- FULL CODE
Original Note:
Today's Communication/Plan
-
E. coli bacteremia
Repeat blood cultures
Transition to oral antibiotics tomorrow
Assessment / Plan
Assessment / Plan
Assessment
73-year-old male with past medical history of cutaneous T-cell lymphoma undergoing photopheresis is being evaluated for fever/chills since 2 weeks. Preliminary outpatient blood work showed gram-negative bacilli.
He was started on IV cefepime.
Impression
Fever/chills
Cutaneous T-cell lymphoma
Mild transaminitis
Essential hypertension
Hyperlipidemia
GERD
Nephrolithiasis
Hypothyroidism
[employer] meningioma s/p resection 2012
Type II DM diet controlled
SHYAM
BPH
Plan
#Fever/chills
Patient is afebrile on admission
WBC 4.3
Lactate 1.0
Chest x-ray 10/25/2023�no evidence of pneumonia
Blood cultures 10/25/2023�gram-negative bacilli,
E. coli bacteremia, source possibly from gluteal wound
Repeat blood cultures X2
Continue cefepime, de-escalation to orals tomorrow
Monitor fever curve
Trend CBC
ID consulted
Oncology consulted
#Cutaneous T-cell lymphoma
Oncology consulted
#Mild transaminitis
Bilirubin 2.2
AST 112
ALT 146
Alkaline phosphatase [address]
CT abdomen pelvis on 08/08/2023�evidence of cholelithiasis
Patient is asymptomatic
Will trend CMP.
#Essential hypertension
Continue chlorthalidone, ramipril
#Hyperlipidemia
Continue fenofibrate, ezetimibe, icosapent ethyl
#GERD
Continue Protonix
#Nephrolithiasis
Patient is asymptomatic
Adequate hydration
#Hypothyroidism
Continue levothyroxine
#[employer] meningioma s/p resection 2012
#Type II DM diet controlled
#SHYAM
#BPH
#DVT prophylaxis
Lovenox
Anticipated Discharge: 24 - 48 hours
Subjective/Interval History
-
Date of Service: October 27, 2023
No acute overnight events
Objective Data
-
Labs:
Laboratory Results
10/27/23
05:43
WBC 4.3 L
Hgb 14.9
Hct 43.2
Plt Count 203
Sodium Pending
Potassium Pending
Chloride Pending
Carbon Dioxide Pending
BUN Pending
Creatinine Pending
Glucose Pending
Calcium Pending
Total Bilirubin Pending
AST Pending
ALT Pending
Alkaline Phosphatase Pending
Vital Signs:
Vital Signs
Temp Pulse Resp BP Pulse Ox
99.6 F 90 20 127/79 95
10/26/23 23:41 10/26/23 23:41 10/26/23 23:41 10/26/23 23:41 10/26/23 23:41
I&O
10/26/23 10/27/23 10/28/23
06:59 06:59 06:59
Intake Total 480 / 480
Balance 480 / 480
Physical Exam
-
General: Well Developed, Well Nourished and No Apparent Distress
HEENT: Normocephalic and Atraumatic
Respiratory: Clear to Auscultation
Cardiac: S1/S2
GI: Soft, Nontender, Nondistended and Normal Bowel Sounds
Skin: Warm, Dry and Other (Erythematous lesions on the lower extremities, open , scaly wounds on the palms without erythema, buttock wound with scant drainage , elbows rough skin but no wounds,)
Neuro: Awake, Alert, Oriented and AO x 3
Psych: Calm
[2023-10-27 07:07] LABS: ALT (SGPT) 111 U/L (0-50); AST (SGOT) 79 U/L (17-59); Albumin 3.7 g/dl (3.5-5.0); Alkaline Phosphatase 59 U/L (38-126); Blood Urea Nitrogen 29 mg/dl (9-20); Calcium 9.3 mg/dl (8.4-10.2); Carbon Dioxide 26 mmol/L (22-30); Chloride 98 mmol/L (98-107); Estimated Creatinine Clearance 77 ml/min; Glucose 110 mg/dl (70-99); Potassium 3.5 mmol/L (3.5-5.1); Sodium 135 mmol/L (135-145); Total Bilirubin 1.4 mg/dl (0.2-1.3); Total Protein 6.4 g/dl (6.3-8.2); eGFR > 60.00
[2023-10-27] MEDS: DICLOFENAC 1% TOPICAL GEL 2 GRAM TOPICAL ×4 (07:39→23:22)
[2023-10-27] MEDS: PROTONIX 40 MG PO (07:40)
[2023-10-27] MEDS: THERAGRAN 1 TABLET PO (07:40)
[2023-10-27] MEDS: ARISTOCORT/TRIAMCINOLONE 0.1% CREAM 1 APPLIC TOPICAL (07:40)
[2023-10-27] MEDS: BACTROBAN 2% OINTMENT 1 APPLIC TOPICAL ×2 (07:40→23:22)
[2023-10-27] MEDS: ASPIR LOW (ENTERIC COATED) 81 MG PO (07:40)
[2023-10-27] MEDS: ALTACE 10 MG PO (07:41)
[2023-10-27] MEDS: Hygroton 50 MG PO (07:41)
[2023-10-27] MEDS: MOTRIN 600 MG PO (07:41)
[2023-10-27] MEDS: ULTRAVATE 0.05% 1 APPLIC TOPICAL (07:44)
[2023-10-27] MEDS: MAXIPIME 2000 MG IV ×2 (09:46→22:06)
[2023-10-27] MEDS: STERILE WATER FOR INJECTION 10 ML IV ×2 (09:46→22:06)
[2023-10-27] MEDS: NON-FORMULARY ITEM 2 GRAMS PO ×2 (10:58→17:26)
[2023-10-27] MEDS: TYLENOL 1000 MG PO ×2 (11:29→23:23)
[2023-10-27] MEDS: NON-FORMULARY ITEM 420 MG PO (11:30)
--- NOTE | 2023-10-27 13:57 | W.PN.ID1 ---
Date of Service
Date of Service: October 27, 2023
Today's Communication
- continue cefepime for now likley deescalation to orals tomorrow to complete short course of therapy
- follow fever curve
Assessment / Plan
E coli Bacteremia
- source likely gluteal wound
Wound Infection
Relative Leukocytosis - patient baseline 3-4
Cutaneous T cell Lymphoa on chemotherapy
Class II obesity
- repeat blood cultures x2 in progress - NGTD
- qtc 460
- continue cefepime for now katelynley deescalation to orals tomorrow to complete short course of therapy
- follow fever curve
Chief Complaint
-: Bacteremia
Subjective / Review of Systems
afebrile
bp stable
without leukocytosis
repeat blood cultures no growth to date
no plans from ID service for biopsy
Vital Signs / Physical Exam
Vital Signs
Vital Signs
Temp Pulse Resp BP Pulse Ox
98.2 F 77 16 121/77 92
10/27/23 07:00 10/27/23 07:00 10/27/23 07:00 10/27/23 07:00 10/27/23 07:00
Physical Exam
Constitutional: No Acute Distress
Cardiovascular: Regular Rate and S1/S2; Negative Murmur or Rub
Pulmonary: Clear and Symmetric; Negative Wheezes or Rales
Gastrointestinal: Soft, Non Tender, Non Distended and Normal Bowel Sounds
Skin: Warm and Dry; Negative Rash or Jaundice
Objective Data
Lab Data
Lab Results
10/27/23 05:43
10/27/23 05:43
Estimated Creat Clear 77 ml/min 10/27/23 05:43
Lactic Acid Cancelled 10/26/23 14:00
Total Bilirubin 1.4 mg/dl (0.2-1.3) H 10/27/23 05:43
AST 79 U/L (17-59) H 10/27/23 05:43
ALT 111 U/L (0-50) H 10/27/23 05:43
Alkaline Phosphatase 59 U/L (38-126) 10/27/23 05:43
Most recent labs reviewed.
Micro Results:
10/26/23 10:54 Blood Culture - Preliminary
Blood/Venous No Growth in 24 hours- Final report to follow
10/26/23 10:55 Blood Culture - Preliminary
Blood/Venous No Growth in 24 hours- Final report to follow
10/26/23 17:00 MRSA Screen - Pending
Nose
Care Review
Plan reviewed with: Physician (Dr Mccollum - nirmal)
[2023-10-27 15:00] VITALS: BP 115/68
--- NOTE | 2023-10-27 15:10 | CM ---
travel manager reviewed patient's chart and met with patient and patient lives with spouse in a split level home, patient is independent with adl's and ambulation, no dme.
Pharmacy; [facility]
PCP: Dr Romo
Plan; home when stable, no needs.
--- NOTE | 2023-10-27 16:42 | CHAP ---
Mr. Muniz welcomed the opportunity to share stories of his spiritual experiences. We prayed together. Emotional and spiritual support provided.
[2023-10-27] MEDS: NON-FORMULARY ITEM 75 MG PO (17:23)
[2023-10-27] MEDS: NON-FORMULARY ITEM 2 UNIT PO ×2 (17:24→23:22)
[2023-10-27] MEDS: NON-FORMULARY ITEM 1 UNIT PO (17:25)
[2023-10-27] MEDS: ZETIA 10 MG PO (17:26)
[2023-10-27] MEDS: LOVENOX 40 MG SC (17:27)
[2023-10-27] MEDS: NON-FORMULARY ITEM 100 MG PO (17:27)
[2023-10-27 23:10] VITALS: BP 128/69
[2023-10-27] MEDS: NON-FORMULARY ITEM 3 UNIT PO (23:22)
[2023-10-28] MEDS: SYNTHROID 100 MCG PO (05:55)
[2023-10-28 07:26] VITALS: BP 115/74
[2023-10-28 07:35] LABS: % Eosinophils 3.6 % (0-6); % Lymphocytes 23.3 % (20.5-51.1); % Monocytes 24.6 % (1.7-9.3); % Neutrophils 46.5 % (42.2-75.2); Absolute Eosinophils 0.1 10^3/uL (0-0.7); Absolute Lymphocytes 0.7 10^3/uL (1.2-3.4); Absolute Monocytes 0.8 10^3/uL (0.1-0.6); Absolute Neutrophils 1.4 10^3/uL (1.4-6.5); Hematocrit 46.3 % (39.0-52.0); Hemoglobin 15.6 g/dL (13.0-18.0); Mean Corp Hgb Conc. 33.7 g/dL (33.0-37.0); Mean Corpuscular Hgb 30.2 pg (27.0-31.0); Mean Corpuscular Volume 89.6 fL (80.0-94.0); Mean Platelet Volume 9.8 fL (7.4-10.4); Nucleated Red Blood Cells % 0 % (-); Platelet Count 210 10^3/uL (130-400); Red Blood Cell Count 5.17 10^6/uL (4.70-6.10); Red Cell Dist. Width 12.8 % (11.5-14.5); White Blood Cell Count 3.1 10^3/uL (4.8-10.8)
--- NOTE | 2023-10-28 07:53 | W.PN.HOSP.TC ---
Addendum entered and electronically signed by Leisa Mccollum MD 10/28/23 18:18:
pt seen and examined independently--agree with plan set forth by Dr. Martinez
GENERAL: well developed, well nourished, male in no apparent distress
HEENT: NC/AT--no O2 requirements
HEART: regular rate and rhythm, +S1, +S2
LUNGS : clear to auscultation bilaterally
ABDOM: soft, nontender, nondistended, + bowel sounds
EXT: no cyanosis, clubbing, or edema
NEUROLOGIC: grossly intact
SKIN: multiple scaly/scab patches on elbows, palms, legs--has 2 small nonhealing wounds on bilateral buttocks (POA)
E. coli bacteremia--pt seen in the emergency department 10/25/2023--cultures were drawn at that time--patient reports receiving a phone call stating that his cultures were positive and to return to the emergency department--Patient is afebrile on
admission--WBC 6.8 (baseline white blood cell count for him is [phone])--Lactate 1.0--Chest x-ray 10/25/2023�no evidence of pneumonia---Continue cefepime--apprec ID/onc -- d/c home on oral Keflex--repeat blood cultures neg
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
Mild transaminitis---CT abdomen pelvis on 08/08/2023�evidence of cholelithiasis--Patient is asymptomatic--Will trend
COMPRESS ENGINEER meningioma s/p resection 2012
Essential Hypertension
Hyperlipidemia--specifically triglycerides--(clogs up phoresis machine)--cont icosapent ethyl, fenofibrate, zetia--pt intolerant to statins
GERD--cont protonix
Arthritis--noted
Nephrolithiasis--calcium oxalate stones--trying diet control
Hypothyroidism--cont levothyroxine
Type 2 DM -- diet controlled
SHYAM--noted
BPH--no symptoms
DVT prophylaxis--Lovenox
code status -- FULL CODE
Original Note:
Today's Communication/Plan
-
IV cefepime de-escalated to oral Keflex upon discharge today.
Assessment / Plan
Assessment / Plan
Assessment
73-year-old male with past medical history of cutaneous T-cell lymphoma undergoing photopheresis is being evaluated for fever/chills since 2 weeks. Preliminary outpatient blood work showed gram-negative bacilli.
He was started on IV cefepime. ID and oncology were consulted.
Impression
Fever/chills
Cutaneous T-cell lymphoma
Mild transaminitis
Essential hypertension
Hyperlipidemia
GERD
Nephrolithiasis
Hypothyroidism
COMPRESS ENGINEER meningioma s/p resection 2012
Type II DM diet controlled
SHYAM
BPH
Plan
#Fever/chills
Patient is afebrile on admission
WBC 4.3
Lactate 1.0
Chest x-ray 10/25/2023�no evidence of pneumonia
Blood cultures 10/25/2023�gram-negative bacilli,
E. coli bacteremia, source possibly from gluteal wound
Sensitivities reported
de-escalation to orals today
Switched to Keflex 500 mg per oral 4 times daily for 4 more days through 10/31 upon discharge.
Monitor fever curve
Trend CBC
ID consulted
Oncology consulted
#Cutaneous T-cell lymphoma
Oncology consulted
#Mild transaminitis
Bilirubin 2.2
AST 112
ALT 146
Alkaline phosphatase [address] abdomen pelvis on 08/08/2023�evidence of cholelithiasis
Patient is asymptomatic
Will trend CMP.
Bilirubin and AST trended down to normal range. ALT at 89
#Essential hypertension
Continue chlorthalidone, ramipril
#Hyperlipidemia
Continue fenofibrate, ezetimibe, icosapent ethyl
#GERD
Continue Protonix
#Nephrolithiasis
Patient is asymptomatic
Adequate hydration
#Hypothyroidism
Continue levothyroxine
#COMPRESS ENGINEER meningioma s/p resection 2012
#Type II DM diet controlled
#SHYAM
#BPH
#DVT prophylaxis
Lovenox
Anticipated Discharge: Today
Subjective/Interval History
-
Date of Service: October 28, 2023
Patient feels comfortable. Patient reports that he passed 3 small urinary stones yesterday evening, no hematuria, no dysuria.
Objective Data
-
Labs:
Laboratory Results
10/28/23
05:33
WBC 3.1 L
Hgb 15.6
Hct 46.3
Plt Count 210
Sodium Pending
Potassium Pending
Chloride Pending
Carbon Dioxide Pending
BUN Pending
Creatinine Pending
Glucose Pending
Calcium Pending
Total Bilirubin Pending
AST Pending
ALT Pending
Alkaline Phosphatase Pending
Vital Signs:
Vital Signs
Temp Pulse Resp BP Pulse Ox
97.4 F 70 17 115/74 96
10/28/23 07:26 10/28/23 07:26 10/28/23 07:26 10/28/23 07:26 10/28/23 07:26
I&O
10/27/23 10/28/23 10/29/23
06:59 06:59 06:59
Intake Total 480 / 480 960 / 960
Balance 480 / 480 960 / 960
Review of Systems
-
All other systems: Reviewed and negative
Physical Exam
-
General: Well Developed, Well Nourished and No Apparent Distress
HEENT: Normocephalic and Atraumatic
Respiratory: Clear to Auscultation
Cardiac: S1/S2
GI: Soft, Nontender, Nondistended and Normal Bowel Sounds
Skin: Other (Erythematous lesions on the lower extremities, open , scaly wounds on the palms without erythema, buttock wound with scant drainage , elbows rough skin but no wounds)
Neuro: Awake, Alert, Oriented and AO x 3
Hematologic / Lymphatic: No Lymphadenopathy
--- NOTE | 2023-10-28 07:53 | W.DCSUMMARY ---
Addendum entered and electronically signed by Leisa Mccollum MD 10/28/23 18:31:
Fully read and agree with summary as outlined by Dr. Martinez. Salient features are gm neg bacilli in bloodstream noted on blood cultures drawn from ED day prior to admission. Pt called back for admission. Blood cultures turned out to be Escherichia
coli. Repeat blood cultures negative. Source undetermined. Pt discharged on Keflex to complete course.
Original Note:
Discharge Summary
Discharge Data
Date of Admission: 10/26/23
Date of Discharge: 10/28/23
-
Pending Results: No
Hospital Course
Discharging Physician : Dr. Leisa Mccollum, Dr. Tammy Martinez
Disposition : Home
Primary care physician : Dr. Aaron Romo
Principal Discharge diagnosis : E. coli bacteremia
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
Hospital Course : 73 year old male patient with past medical history significant for cutaneous T-cell lymphoma undergoing photopheresis presented reporting fever/chills since 2 weeks . Not accompanied with chest pain, cough, headache, nausea,
vomiting, abdominal pain, hematuria, diarrhea. He had his most recent photo treatment the first week of October 2023. He began to experience rigors and fevers with a temperature up to 101.8. He went to his PCP. He had been taking Ibuprofen/Tylenol
which masked his fever when he went to PCP office. Preliminary blood cultures were positive and he was instructed to return to the ER for further evaluation/treatment. Patient reports having wounds on his palms bilaterally, skin lesions on the
lower extremities and a nonhealing wound on his left buttock, which sometimes drains fluid. Denies pain, night sweats or weight loss. He has his oncology team at [place] Dr. Gauri Jacinto. He notes that for him a WBC count of 6-7 is high as he
historically has WBC count of 3-4. He has a history of hyperlipidemia, on ezetimibe and fenofibrate and sometimes has high lipid levels which do not allow the photopheresis machine to function properly. Patient reports that he was admitted before
for symptoms like these and treated with antibiotics and these episodes happen every time after his photopheresis treatment.
Vitals were stable on admission.wbc 7.1 on arrival , hgb 15.9, plt 212,L shift is noted, eos are present, cr 1.5 previously 1.2, K 3.7, lactic acid 1.0, t bili 2.2, ast 112, alt 146, alk phos 61, CXR: no infiltrates 10/24 single blood culture on file
here with GNR, blood cultures x2 in progress, ua 6-10 wbc/hpf. relative leukocytosis compared to patients baseline. Based on his prior blood culture report 10/25/2023�which showed evidence of gram-negative bacilli, he was started on IV cefepime. ID
and oncology were consulted. His LDH 234, reticulocyte count 1.9, haptoglobin-pending, uric acid 6.4. EKG showed QTc�462. All his home medications were continued during the hospital course. He is maintained on Lovenox for DVT prophylaxis. His
WBC count trended back to his baseline 3.1. Plan on de-escalating to oral antibiotics, pending sensitivity report . Patient has clinically improved and stable to be discharged, transition to per oral Keflex for 4 more days 4 times daily after
looking at the sensitivities. Patient mentioned that he passed 3 small urinary stones the night before discharge, without any hematuria or dysuria. Patient advised to follow-up with his primary care and oncologist.
Discharge Plan
-
Patient Disposition: Home (Routine Discharge)
Discharge Diagnosis/Procedures: E. coli bacteremia
Condition: Good
Diet: As tolerated and Low Cholesterol
Activity: As tolerated
Driving Restrictions: As prior to admission
Bathing Restrictions: None
Referrals:
Aaron Romo I., DO [Family Provider] - in less than 1 week
Prescriptions:
New
cephalexin 500 mg capsule
500 mg PO QID Qty: 18 0RF
Continued
levothyroxine 100 MCG tablet
100 mcg PO DAILY@0600
acetaminophen [Tylenol Extra Strength] 500 MG tablet
1,000 mg PO BID
halobetasol propionate 1 APPLIC ointment
1 applic topical DAILY
ezetimibe 10 MG tablet
10 mg PO QPM
triamcinolone acetonide 0.1 % Cream
1 applic TOPICAL TIDPRN PRN (Reason: hand pain)
bisacodyl [Dulcolax (bisacodyl)] 5 mg Tablet,Delayed Release (Dr/Ec)
10 mg PO HS
ramipril 10 mg Capsule
10 mg PO DAILY
aspirin 81 mg Capsule
81 mg PO DAILY
docusate sodium 50 mg Capsule
150 mg PO HS
therapeutic multivitamin Tablet
1 tab PO DAILY
chlorthalidone 50 mg Tablet
50 mg PO DAILY
bexarotene 75 mg Capsule
75 mg PO QPM
mupirocin 2 % Ointment
1 applic TOPICAL BID
ibuprofen 600 mg Tablet
600 mg PO DAILY
coenzyme Q10 [CoQ-10] 100 mg Capsule
100 mg PO DAILY
fenofibrate 160 mg Tablet
320 mg PO QPM
Rx Instructions:
take with 40mg tablet for total of 360mg
diclofenac sodium [Aspercreme Arthritis Pain] 1 % Gel
2 g TOPICAL QID
fenofibrate 40 mg Tablet
40 mg PO QPM
Rx Instructions:
take with 2 tablets of 160mg for total of 360mg
icosapent ethyl 1 gram Capsule
2 g PO BID
Valchlor 0.016 % Gel
1 applic TOPICAL HS
magnesium glycinate 470 mg tablet
470 mg PO SUTUTHSA
magnesium glycinate 470 mg tablet
1.5 tab PO MOWEFR
pantoprazole 40 mg tablet,delayed release (DR/EC)
40 mg PO DAILY
Actimmune 100 mcg/0.5 mL solution
66 mcg SC MOWEFR@1800
Discharge Orders:
Discharge Patient (As Directed); Ordered 10/28/23
Ordered By: Tammy Martinez
Discharge Date and Time
Discharge Date/Time: 10/28/23 15:32
Print Language: KOREAN
--- NOTE | 2023-10-28 07:56 | W.PN.UPDATE ---
Addendum entered and electronically signed by Jillian Medina MD 10/28/23 10:02:
Sensi Back
Afebrile, BP stable, repeat blood cultures no growth to date
Source was likely chronic buttock wound that presented with purulent drainage
Blood Culture Final 10/28/23-0857
Escherichia coli
Organism 1 Escherichia coli
1. Escherichia coli
M.I.C. RX
--------- ---
Amoxicillin/Potas. Clavulanate <=8/4 S
Ampicillin <=8 S
Ampicillin/Sulbactam <=8/4 S
Cefazolin <=2 S
Ertapenem <=0.5 S
Ciprofloxacin <=0.25 S
Gentamicin <=4 S
Levofloxacin <=0.5 S
Meropenem <=1 S
Piperacillin/Tazobactam <=16 S
Tobramycin <=4 S
Trimethoprim/Sulfamethoxazole <=2/38 S
Switched to keflex 500 mg PO QID x7 days 10/25-10/31
Follow up with his providers at [facility]
Original Note:
Update Note
Progress Note Update
chart checked, sensitives pending
[2023-10-28 08:23] LABS: ALT (SGPT) 89 U/L (0-50); AST (SGOT) 58 U/L (17-59); Albumin 3.7 g/dl (3.5-5.0); Alkaline Phosphatase 55 U/L (38-126); Blood Urea Nitrogen 30 mg/dl (9-20); Calcium 9.7 mg/dl (8.4-10.2); Carbon Dioxide 27 mmol/L (22-30); Chloride 98 mmol/L (98-107); Estimated Creatinine Clearance 77 ml/min; Glucose 104 mg/dl (70-99); Potassium 3.5 mmol/L (3.5-5.1); Sodium 137 mmol/L (135-145); Total Bilirubin 1.1 mg/dl (0.2-1.3); Total Protein 6.5 g/dl (6.3-8.2); eGFR > 60.00
[2023-10-28] MEDS: Hygroton 50 MG PO (09:07)
[2023-10-28] MEDS: PROTONIX 40 MG PO (09:08)
[2023-10-28] MEDS: ASPIR LOW (ENTERIC COATED) 81 MG PO (09:09)
[2023-10-28] MEDS: ALTACE 10 MG PO (09:09)
[2023-10-28] MEDS: BACTROBAN 2% OINTMENT 1 APPLIC TOPICAL (09:10)
[2023-10-28] MEDS: DICLOFENAC 1% TOPICAL GEL 2 GRAM TOPICAL (09:10)
[2023-10-28] MEDS: NON-FORMULARY ITEM 1 GRAMS PO (09:12)
[2023-10-28] MEDS: ULTRAVATE 0.05% 1 APPLIC TOPICAL (09:14)
[2023-10-28] MEDS: MAXIPIME 2000 MG IV (09:14)
[2023-10-28] MEDS: ARISTOCORT/TRIAMCINOLONE 0.1% CREAM 1 APPLIC TOPICAL (09:15)
[2023-10-28] MEDS: STERILE WATER FOR INJECTION 10 ML IV (09:15)
[2023-10-28] MEDS: THERAGRAN 1 TABLET PO (09:19)
[2023-10-28] MEDS: MOTRIN 600 MG PO (09:19)
[2023-10-28] MEDS: NON-FORMULARY ITEM 420 MG PO (12:12)
[2023-10-28] MEDS: TYLENOL 1000 MG PO (12:14)
--- NOTE | 2023-10-28 12:17 | W.PN.ID1 ---
Date of Service
Date of Service: October 28, 2023
Today's Communication
- switch to Keflex 500 mg PO QID through 10/31
- follow up with pcp
Assessment / Plan
E coli Bacteremia - cleared
- source likely gluteal wound
Wound Infection
Relative Leukocytosis - patient baseline 3-4
Cutaneous T cell Lymphoa on chemotherapy
Class II obesity
- repeat blood cultures x2 in progress - NGTD
- switch to Keflex 500 mg PO QID through 10/31
- follow up with pcp
Chief Complaint
-: Bacteremia
Subjective / Review of Systems
afebrile
bp stable
minimal leukopenia
normal
cr stable
blood cultures x2 ngtd
Vital Signs / Physical Exam
Vital Signs
Vital Signs
Temp Pulse Resp BP Pulse Ox
97.4 F 70 17 115/74 96
10/28/23 07:26 10/28/23 07:26 10/28/23 07:26 10/28/23 07:26 10/28/23 07:26
Physical Exam
Constitutional: No Acute Distress and Non-toxic
Cardiovascular: Regular Rate and S1/S2; Negative Murmur or Rub
Pulmonary: Clear and Symmetric; Negative Wheezes or Rales
Gastrointestinal: Soft, Non Tender, Non Distended and Normal Bowel Sounds
Skin: Warm and Dry; Negative Rash or Jaundice
Objective Data
Lab Data
Lab Results
10/28/23 05:33
10/28/23 05:33
Estimated Creat Clear 77 ml/min 10/28/23 05:33
Lactic Acid Cancelled 10/26/23 14:00
Total Bilirubin 1.1 mg/dl (0.2-1.3) 10/28/23 05:33
AST 58 U/L (17-59) 10/28/23 05:33
ALT 89 U/L (0-50) H 10/28/23 05:33
Alkaline Phosphatase 55 U/L (38-126) 10/28/23 05:33
Most recent labs reviewed.
Micro Results:
10/26/23 10:55 Blood Culture - Preliminary
Blood/Venous No Growth in 48 hours- Final report to follow
10/26/23 10:54 Blood Culture - Preliminary
Blood/Venous No Growth in 48 hours- Final report to follow
10/26/23 17:00 MRSA Screen - Preliminary
Nose Culture in Progress
Care Review
Plan reviewed with: Physician (Dr Mccollum, Dr Martinez - nirmal)
[2023-10-28] MEDS: DICLOFENAC 1% TOPICAL GEL TOPICAL ×2 (12:48→12:51)
[2023-10-28] MEDS: KEFLEX 500 MG PO (12:48)
[2023-10-28 15:02] VITALS: BP 99/54
--- NOTE | 2023-10-28 15:16 | CM ---
Chart reviewed home no needs.
Plan; Home no needs
--- NOTE | 2023-10-28 15:37 | PTCARENOTE ---
Reviewed discharge instructions with patient who stated he did not have any further questions . Patients personal meds returned to him with as witness. Discharged without difficulty.
[2023-10-28 23:23] LABS: Haptoglobin 189 mg/dL (30-200)
== END 2023-10-28 15:32 | disposition home or self-care (01) | DRG 872 ==
LOC: 4 WEST ACU 14:33
PROVIDERS: Nurse Practitioner Family; Student in an Organized Health Care Education/Training Program; ADMITTING PHYSICIAN Internal Medicine; CONSULT PHYSICIAN Internal Medicine Hematology & Oncology; CONSULT PHYSICIAN Student in an Organized Health Care Education/Training Program; EMERGENCY PHYSICIAN Emergency Medicine; FAMILY PHYSICIAN Internal Medicine
DX: R78.81 Bacteremia (principal); C84.A0 Cutaneous T-cell lymphoma, unspecified, unspecified site; B96.20 Unspecified Escherichia coli [E. coli] as the cause of diseases classified elsewhere; I10 Essential (primary) hypertension; E78.5 Hyperlipidemia, unspecified; E03.9 Hypothyroidism, unspecified; E11.9 Type 2 diabetes mellitus without complications; G47.33 Obstructive sleep apnea (adult) (pediatric); K21.9 Gastro-esophageal reflux disease without esophagitis
CPT/HCPCS: 71046; 80053; 81003; 81015; 83010; 83605; 83615; 84550; 85025; 85045; 87040; 87070; 87077; 87147; 87186; 87205; 93005; 96374; 99283; 99284

== ENCOUNTER → 2023-11-01 12:17 | Outpatient (REF) | payer MEDICARE, BC, SELFPAY | LOC: WOUND 12:17 | PROVIDERS: ATTENDING PHYSICIAN Surgery; FAMILY PHYSICIAN Internal Medicine | DX: C84.A5 Cutaneous T-cell lymphoma, unspecified, lymph nodes of inguinal region and lower limb (principal); C84.A0 Cutaneous T-cell lymphoma, unspecified, unspecified site; C84.90 Mature T/NK-cell lymphomas, unspecified, unspecified site; K63.5 Polyp of colon; E11.9 Type 2 diabetes mellitus without complications | CPT/HCPCS: 99202 ==

== ENCOUNTER 2023-11-19 12:56 | Emergency (ER) | payer MEDICARE, BC, SELFPAY ==
[2023-11-19 13:04] VITALS: BP 134/89
[2023-11-19 13:24] VITALS: BP 129/71
--- NOTE | 2023-11-19 14:17 | ED.GENMED ---
History of Present Illness
General
Chief Complaint: Fever
Source: patient and previous hospital records
Time Seen by Provider: 11/19/23 13:58
History of Present Illness
History of Present Illness:
73-year-old male presents emergency department with complaints of fevers chills shivers and shakes that started over the weekend. He describes the symptoms as 'the same' as prior episodes of bacteremia. Patient was most recently hospitalized in
late October with E. coli bacteremia. He also describes fatigue. He denies nausea, vomiting, anorexia, chest pain, shortness of breath, cough, sore throat, rhinorrhea, photophobia, headache, neck stiffness, abdominal pain, urinary symptoms. He is
currently undergoing an extended colonoscopy prep and has expected diarrhea without blood. Patient has a history of a recent sacral wound which she describes as 'pretty much resolved' and no longer open at this point. Patient denies new rash.
Past History
Past History
ED Past Medical History: Cancer (T- cell Lymphoma), GERD, HTN, Hypercholesterolemia, NIDDM, Hypothyroidism and Other (sleep apnea, BPH, urinary retention, Kidney stones, cutaneous T-cell lymphoma)
ED Past Surgical History: Brain (Craniotomy 05/02/2013 for removal of right frontal meningioma), Orthopedic (Left total knee replacement.), Urological (stent Kidney) and Other (hernia)
Social History
Tobacco: Non-smoker
Alcohol: None
Drug: None
Personal:
Living: with family
Family History
Family History: Other (Noncontributory)
Phy Exam
Physical Exam
Physical Exam:
GENERAL: Alert , in no apparent distress
EYE: pupils equal and reactive, no photophobia
NECK: Supple, no significant adenopathy.
ENT: o/p clr, mmm.
CARDIAC: Regular rate and rhythm .
LUNGS: Clear breath sounds bilaterally, no acute respiratory distress, no wheezes/rales/rhonchi
ABDOMEN: Soft, without focal tenderness, no r/g, no cvat
NEUROLOGICAL: Alert and oriented, no focal neuro deficits
SKIN: Warm and dry, skin intact, chronic cutaneous T-cell lymphoma rash noted. Sacral area with small area bilateral upper buttocks redness, no open area, no fluctuance induration warmth streaking or other abnormalities.
MUSCULOSKELETAL: No edema, well perfused.
PSYCH: Normal and appropriate interaction.
Course
Orders/Labs/Results
Orders:
Orders
11/19/23 14:18
Complete Blood Count/With Diff Urgent
Comprehensive Metabolic Panel Urgent
Lactic Acid Q4H
Comment: CANCEL 2nd LACTIC ACID IF 1st LACTIC ACID IS LESS THAN 2
Manual Differential Urgent
Blood Culture Urgent
PAT Source: Blood/Venous
Specimen Description:
11/19/23 14:19
Blood Culture Routine
PAT Source: Blood/Venous
Specimen Description:
11/19/23 14:30
Influenza A+B Rapid Molecular Urgent
PAT Source: Nasal Swab
Specimen Description:
11/19/23 14:31
COVID-19 Antigen Stat
Source: Nasal Swab
Urinalysis Reflex To Culture Urgent
Date Specimen was Collected: 11/19/23
Time Specimen was Collected: 14:28
Urine Microscopic Reflex Cult Urgent
Respiratory Syncytial Virus Urgent
PAT Source: Nasal Swab
Specimen Description:
Date Specimen was Collected: 11/19/23
Time Specimen was Collected: 14:28
11/19/23 18:15
Lactic Acid Q4H
Comment: CANCEL 2nd LACTIC ACID IF 1st LACTIC ACID IS LESS THAN 2
Abnormal Lab Results
11/19/23 11/19/23
14:18 14:31
WBC 4.6 L 10^3/uL
(4.8-10.8)
Monocytes (Manual) 19 H %
(2-9)
BUN 25 H mg/dl
(9-20)
Glucose 139 H mg/dl
(70-99)
AST 81 H U/L
(17-59)
ALT 75 H U/L
(0-50)
Urine Ketones Trace A
(Negative)
Leukocyte Esterase Rfl Trace A
(Negative)
Urine Bacteria (Reflex) Few A
(Negative)
11/19/23 14:18
11/19/23 14:18
Vital Signs
Initial and Last Documented VS:
Initial Vital Signs
Temp Pulse Resp BP Pulse Ox
98.8 F 79 16 134/89 98
11/19/23 13:04 11/19/23 13:04 11/19/23 13:04 11/19/23 13:04 11/19/23 13:04
Last Documented Vital Signs
Temp Pulse Resp BP Pulse Ox
98.8 F 74 29 120/77 94
11/19/23 13:04 11/19/23 16:00 11/19/23 16:00 11/19/23 16:00 11/19/23 16:00
*Critical Care Note
Total Time (30-74mins, 75-104mins- exclusive of procedures): Not Applicable
Update Note
Update Note:
Patient presents to the Emergency Department with ____fevers and chills
Number and Complexity of Problems Addressed at the Encounter
� Chronic conditions affecting care:
� Acute Exacerbation and/or Progression of Chronic Illness:
� Differential Diagnosis includes: But not limited to COVID, flu, RSV, UTI, bacteremia, etc.
Amount and/or Complexity of Data to be Reviewed and Analyzed
� I performed an independent evaluation of and my interpretation is:
EKG:
CT:
Xrays:
Laboratory Studies: Lactic normal, blood culture pending, slight abnormality of white blood cell count of 4.6 given patient's typical level is 3-4, UA not convincing for infection
Other:
� Review of other/old records reveals: Patient was discharged on or about October 27 of this year with E. coli bacteremia, finished his course of Keflex as an outpatient. His baseline white blood cell count is between 3-4000.
Source was thought to be sacral wound at that time.
� Clinical information was obtained by an independent historian:
� Prescriptions/Medications Considered but not given:
� Further testing considered but not performed:
Risk of Complications and/or Morbidity or Mortality of Patient Management
� Social determinants of health affecting care:
� Discussion with other providers (PCP, Hospitalists, Consultants, etc):
� Escalation of care including admission/observation vs risk of discharge considered: 4:12 PM patient's vitals remained stable I personally rechecked his temperature and is 98.1. He denies sweats chills or shakes. Long Long
discussion with patient regarding pending blood cultures, possibility of bacteremia although difficult to prove at this time, stable vital signs and no SIRS criteria. Patient will check portal and contact his PCP within 24 hours for follow-up
regarding blood culture results, as well as we will continue our process which is in place if blood culture is positive to call/contact patient. Patient aware of importance of follow-up and reasons to return the emergency department.
ED Attending Note
-
Portions of this chart may have been created with voice recognition software.� Occasional wrong word or��sound alike� substitutions may have occurred due to the inherent limitations of voice recognition software.
Discharge Plan
Departure
Patient Disposition: Home (Routine Discharge)
Date of Disposition: 11/19/23
Time of Disposition: 16:14
Patient with high blood pressure during this ER visit?: Yes
Condition: Good
Discharge Problem:
Fever
Instructions: Fever, Adult (DC), BLOOD PRESSURE
Prescriptions:
No Action
levothyroxine 100 MCG tablet
100 mcg PO DAILY@0600
acetaminophen [Tylenol Extra Strength] 500 MG tablet
1,000 mg PO BID
halobetasol propionate 1 APPLIC ointment
1 applic topical DAILY
ezetimibe 10 MG tablet
10 mg PO QPM
triamcinolone acetonide 0.1 % Cream
1 applic TOPICAL TIDPRN PRN (Reason: hand pain)
bisacodyl [Dulcolax (bisacodyl)] 5 mg Tablet,Delayed Release (Dr/Ec)
10 mg PO HS
ramipril 10 mg Capsule
10 mg PO DAILY
aspirin 81 mg Capsule
81 mg PO DAILY
docusate sodium 50 mg Capsule
150 mg PO HS
therapeutic multivitamin Tablet
1 tab PO DAILY
chlorthalidone 50 mg Tablet
50 mg PO DAILY
bexarotene 75 mg Capsule
75 mg PO QPM
mupirocin 2 % Ointment
1 applic TOPICAL BID
ibuprofen 600 mg Tablet
600 mg PO DAILY
coenzyme Q10 [CoQ-10] 100 mg Capsule
100 mg PO DAILY
fenofibrate 160 mg Tablet
320 mg PO QPM
Rx Instructions:
take with 40mg tablet for total of 360mg
diclofenac sodium [Aspercreme Arthritis Pain] 1 % Gel
2 g TOPICAL QID
fenofibrate 40 mg Tablet
40 mg PO QPM
Rx Instructions:
take with 2 tablets of 160mg for total of 360mg
icosapent ethyl 1 gram Capsule
2 g PO BID
Valchlor 0.016 % Gel
1 applic TOPICAL HS
magnesium glycinate 470 mg tablet
470 mg PO SUTUTHSA
magnesium glycinate 470 mg tablet
1.5 tab PO MOWEFR
pantoprazole 40 mg tablet,delayed release (DR/EC)
40 mg PO DAILY
Actimmune 100 mcg/0.5 mL solution
66 mcg SC MOWEFR@1800
cephalexin 500 mg capsule
500 mg PO QID Qty: 18 0RF
Referrals:
Aaron Romo I., DO [Family Provider] - Tomorrow
Activity Restrictions/Additional Instructions:
PLEASE FOLLOW-UP ON YOUR BLOOD CULTURE RESULTS IN THE NEXT 24 HOURS. IF YOU DEVELOP COUGH, SORE THROAT, DIZZINESS, CHEST PAIN, SHORTNESS OF BREATH, PERSISTENT FEVER, ABDOMINAL PAIN, GET WORSE, DO NOT GET BETTER OR OTHER WORRISOME SIGNS, GO TO THE
ER IMMEDIATELY.
Interventions
Interventions:
*Risk Screen - Suicide Last Done: 11/19/23 14:19
*General Assessment Last Done: 11/19/23 14:19
*Neglect/Abuse Screening Last Done: 11/19/23 14:19
ED- Fall Risk Assessment Last Done: 11/19/23 14:19
*ED COVID-19 Vaccine History Last Done: 11/19/23 14:19
ED- Neurological Assessment Last Done: 11/19/23 14:19
ED-Skin Assessment Last Done: 11/19/23 14:19
Discharge Date and Time
Print Language: LAO
[2023-11-19 14:19] VITALS: BMI 38.0
[2023-11-19 14:36] LABS: Hematocrit 42.8 % (39.0-52.0); Hemoglobin 14.9 g/dL (13.0-18.0); Mean Corp Hgb Conc. 34.8 g/dL (33.0-37.0); Mean Corpuscular Hgb 30.5 pg (27.0-31.0); Mean Corpuscular Volume 87.7 fL (80.0-94.0); Mean Platelet Volume 9.3 fL (7.4-10.4); Platelet Count 177 10^3/uL (130-400); Red Blood Cell Count 4.88 10^6/uL (4.70-6.10); Red Cell Dist. Width 13.2 % (11.5-14.5); White Blood Cell Count 4.6 10^3/uL (4.8-10.8)
[2023-11-19 14:49] LABS: Lactic Acid 0.9 mmol/L (0.7-2.0)
[2023-11-19 14:52] LABS: Urine Albumin Negative (Neg - Trace); Urine Bilirubin Negative (Negative); Urine Character Clear (Clear); Urine Color Yellow; Urine Glucose Negative (Negative); Urine Ketone Trace (Negative); Urine Leukocyte Trace (Negative); Urine Nitrite Negative (Negative); Urine Occult Blood Negative (Negative); Urine Urobilinogen Negative (Neg - 1+)
[2023-11-19 14:54] LABS: Absolute Neutrophils -Man Diff 2.6 10^3/uL (1.4-6.5); Band Neutrophils 0 % (0-3); Eosinophils 4 % (0-6); Lymphocytes 21 % (20-51); Monocytes 19 % (2-9); Normal RBC Morphology Yes; Platelets Checked Yes; Segmented Neutrophils 57 % (42-75); Total Cells Counted 100
[2023-11-19 14:59] LABS: Urine Squamous Cell 0-2 /LPF (Few)
[2023-11-19 15:00] LABS: Urine Bacteria Few (Negative); Urine Red Blood Cell 0-2 /HPF (0-2); Urine White Cell 0-2 /HPF (0-5)
[2023-11-19 15:06] LABS: COVID-19 Antigen Negative (Negative)
[2023-11-19 15:13] LABS: ALT (SGPT) 75 U/L (0-50); AST (SGOT) 81 U/L (17-59); Albumin 3.9 g/dl (3.5-5.0); Alkaline Phosphatase 49 U/L (38-126); Blood Urea Nitrogen 25 mg/dl (9-20); Calcium 9.7 mg/dl (8.4-10.2); Carbon Dioxide 28 mmol/L (22-30); Chloride 99 mmol/L (98-107); Estimated Creatinine Clearance 71 ml/min; Glucose 139 mg/dl (70-99); Potassium 3.6 mmol/L (3.5-5.1); Sodium 136 mmol/L (135-145); Total Protein 6.5 g/dl (6.3-8.2); eGFR > 60.00
[2023-11-19 15:39] VITALS: BP 112/78
[2023-11-19 16:00] VITALS: BP 120/77
== END 2023-11-19 16:33 | disposition home or self-care (01) ==
LOC: EMR 12:56
PROVIDERS: EMERGENCY PHYSICIAN Emergency Medicine; FAMILY PHYSICIAN Internal Medicine
DX: R50.9 Fever, unspecified (principal); I10 Essential (primary) hypertension; Z11.52 Encounter for screening for COVID-19
CPT/HCPCS: 99283; 80053; 81003; 81015; 83605; 85025; 87040; 87502; 87807; 87811

== ENCOUNTER 2023-11-30 18:32 | Emergency (ER) | payer MEDICARE, BC, SELFPAY ==
[2023-11-30 18:35] VITALS: BP 149/75
--- NOTE | 2023-11-30 19:08 | ED.GENMED ---
History of Present Illness
General
Chief Complaint: Fever
Source: patient
Time Seen by Provider: 11/30/23 18:47
History of Present Illness
History of Present Illness:
73yoM with a history of cutaneous T-cell lymphoma, hypertension, hyperlipidemia, diabetes, and hypothyroidism presenting with his for evaluation of fever. Symptoms began around 4pm this afternoon. He started to feel chills and body aches. He
checked his temperature which was elevated around 101 so he came to the ED. He has a history of recurrent fevers over the past several months. He was admitted from 10/26/23-10/28/23 for E.coli bacteremia which was thought to be secondary to a gluteal
wound. Patient believes his fevers may be related to his Acctimune injections which he is on for his lymphoma. He self-administers these injections 3x weekly, last dose was on Sunday (4 days ago). He has been researching Acctimune and believes the
E.coli involved in the fermentation process of making this drug may be causing his fevers/infections. He denies any dysuria, vomiting, diarrhea, cough, rashes.
Past History
Past History
ED Past Medical History: Cancer (T- cell Lymphoma), GERD, HTN, Hypercholesterolemia, NIDDM, Hypothyroidism and Other (sleep apnea, BPH, urinary retention, Kidney stones, cutaneous T-cell lymphoma)
ED Past Surgical History: Brain (Craniotomy 05/02/2013 for removal of right frontal meningioma), Orthopedic (Left total knee replacement.), Urological (stent Kidney) and Other (hernia)
Social History
Tobacco: Non-smoker
Alcohol: None
Drug: None
Personal:
Living: with family
Family History
Family History: Other (Noncontributory)
Phy Exam
General Physical Exam
General Presentation: well appearing and no apparent distress
General age: appears stated age
General Skin: warm and dry
General Habitus: normal
General Mental: alert
ENT Exam
ENT Exam: pharynx normal
Cardiovascular Exam
Cardiovascular Exam: regular rate/rhythm, no edema and no murmur
Pulmonary Exam
Pulmonary Exam: lungs clear, no respiratory distress, no crackles and no wheezing
Gastrointestinal Exam
Gastrointestinal Exam: non tender, soft and non distended
[place] Coma Scale
Eye Opening: Spontaneous
Verbal Response: Oriented
Motor Response: Obeys Commands
GCS Total Score: 15
Skin Exam
Skin Exam: other (Small area of erythema to buttocks. No open wounds present. )
Psychiatric Exam
Psychiatric Exam: normal mood/affect
Course
Orders/Labs/Results
Orders:
Orders
11/30/23 19:06
CR Chest - 2 Views Urgent
Comment:
Reason For Exam: Fever
11/30/23 19:07
Blood Culture Urgent
PAT Source: Blood/Venous
Specimen Description:
11/30/23 19:38
Complete Blood Count/With Diff Urgent
Comprehensive Metabolic Panel Urgent
PTT Urgent
Procalcitonin Urgent
PCT Algorithmm Indication: Sepsis
Prothrombin Time Urgent
Urinalysis Reflex To Culture Urgent
Date Specimen was Collected: 11/30/23
Time Specimen was Collected: 19:34
Urine Microscopic Reflex Cult Urgent
Blood Culture Urgent
PAT Source: Blood/Venous
Specimen Description:
Influenza A+B Rapid Molecular Urgent
PAT Source: Nasal Swab
Specimen Description:
Urine Culture Urgent
PAT Source: U
Specimen Description:
Date Specimen was Collected: 11/30/23
Time Specimen was Collected: 19:34
11/30/23 19:39
COVID-19 Antigen Urgent
Source: Nasal Swab
Lactic Acid Urgent
11/30/23 21:08
Cefdinir [Omnicef] 300 mg PO NOW STA
Abnormal Lab Results
11/30/23
19:38
Absolute Neuts (auto) 6.6 H 10^3/uL
(1.4-6.5)
Absolute Lymphs (auto) 0.3 L 10^3/uL
(1.2-3.4)
Absolute Monos (auto) 0.7 H 10^3/uL
(0.1-0.6)
Neutrophils % 85.9 H %
(42.2-75.2)
Lymphocytes % 3.7 L %
(20.5-51.1)
Sodium 133 L mmol/L
(135-145)
BUN 27 H mg/dl
(9-20)
Glucose 122 H mg/dl
(70-99)
AST 75 H U/L
(17-59)
ALT 89 H U/L
(0-50)
Leukocyte Esterase Rfl Trace A
(Negative)
Urine RBC 3-6 A /HPF
(0-2)
Urine WBC (Reflex) 11-15 A /HPF
(0-5)
Urine Bacteria (Reflex) Few A
(Negative)
11/30/23 19:38
11/30/23 19:38
Vital Signs
Initial and Last Documented VS:
Initial Vital Signs
Temp Pulse Resp BP Pulse Ox
102.4 F H 106 16 149/75 96
11/30/23 18:35 11/30/23 18:35 11/30/23 18:35 11/30/23 18:35 11/30/23 18:35
Last Documented Vital Signs
Temp Pulse Resp BP Pulse Ox
99.3 F 94 16 135/85 97
11/30/23 21:45 11/30/23 20:00 11/30/23 20:00 11/30/23 20:00 11/30/23 20:00
MDM/Problems Addressed
Differential Diagnosis Includes:
73yoM here with a fever that began this afternoon. Hx of lymphoma on immunotherapy. Hx of E.coli bacteremia last month. Otherwise asymptomatic. Temperature 102.4 on arrival. Remainder of vitals stable. He is well-appearing in no acute distress.
No focal signs of infection on exam. Differential diagnosis includes but is not limited to: Bacteremia, sepsis, pneumonia, UTI, viral syndrome
Initial ED plan: Check septic workup including lactate, blood cultures, UA, COVID/flu swab, and chest x-ray.
*Critical Care Note
Total Time (30-74mins, 75-104mins- exclusive of procedures): Not Applicable
Update Note
Update Note:
Labs overall unremarkable including normal white count, lactate, and procalcitonin. UA shows 11-15 WBCs and a few bacteria possibly suggesting a UTI. COVID and flu negative. Chest x-ray appears clear. Recommended admission for IV antibiotics due
to immunocompromise state as well as recent history of bacteremia. Patient is refusing admission at this time. Will prescribe cefdinir for possible UTI. He was advised to f/u with his PCP within the next 72 hours. Strict ED return precautions
discussed. Vitals stable at discharge.
After discharge, radiology read the CXR as subtle R perihilar infiltrate. Additional prescription for doxycycline was sent to the pharmacy.
ED Attending Note
-
Portions of this chart may have been created with voice recognition software.� Occasional wrong word or��sound alike� substitutions may have occurred due to the inherent limitations of voice recognition software.
Discharge Plan
Departure
Patient Disposition: Home (Routine Discharge)
Date of Disposition: 11/30/23
Time of Disposition: 21:08
Patient with high blood pressure during this ER visit?: Yes
Discharge Problem:
Fever, Urinary tract infection
Instructions: Fever, Adult (DC)
Prescriptions:
New
cefdinir 300 mg capsule
300 mg PO BID Qty: 13 0RF
doxycycline hyclate 100 mg capsule
100 mg PO BID Qty: 14 0RF
No Action
levothyroxine 100 MCG tablet
100 mcg PO DAILY@0600
acetaminophen [Tylenol Extra Strength] 500 MG tablet
1,000 mg PO BID
halobetasol propionate 1 APPLIC ointment
1 applic topical DAILY
ezetimibe 10 MG tablet
10 mg PO QPM
triamcinolone acetonide 0.1 % Cream
1 applic TOPICAL TIDPRN PRN (Reason: hand pain)
bisacodyl [Dulcolax (bisacodyl)] 5 mg Tablet,Delayed Release (Dr/Ec)
10 mg PO HS
ramipril 10 mg Capsule
10 mg PO DAILY
aspirin 81 mg Capsule
81 mg PO DAILY
docusate sodium 50 mg Capsule
150 mg PO HS
therapeutic multivitamin Tablet
1 tab PO DAILY
chlorthalidone 50 mg Tablet
50 mg PO DAILY
bexarotene 75 mg Capsule
75 mg PO QPM
mupirocin 2 % Ointment
1 applic TOPICAL BID
ibuprofen 600 mg Tablet
600 mg PO DAILY
coenzyme Q10 [CoQ-10] 100 mg Capsule
100 mg PO DAILY
fenofibrate 160 mg Tablet
320 mg PO QPM
Rx Instructions:
take with 40mg tablet for total of 360mg
diclofenac sodium [Aspercreme Arthritis Pain] 1 % Gel
2 g TOPICAL QID
fenofibrate 40 mg Tablet
40 mg PO QPM
Rx Instructions:
take with 2 tablets of 160mg for total of 360mg
icosapent ethyl 1 gram Capsule
2 g PO BID
Valchlor 0.016 % Gel
1 applic TOPICAL HS
magnesium glycinate 470 mg tablet
470 mg PO SUTUTHSA
magnesium glycinate 470 mg tablet
1.5 tab PO MOWEFR
pantoprazole 40 mg tablet,delayed release (DR/EC)
40 mg PO DAILY
Actimmune 100 mcg/0.5 mL solution
66 mcg SC MOWEFR@1800
cephalexin 500 mg capsule
500 mg PO QID Qty: 18 0RF
Referrals:
Aaron Romo I., DO [Family Provider] -
Activity Restrictions/Additional Instructions:
Take antibiotics as prescribed.
Please follow-up with your family doctor on Sunday. Return to the ER immediately with any new or worsening symptoms.
Interventions
Interventions:
*Risk Screen - Suicide Last Done: 11/30/23 20:18
*General Assessment Last Done: 11/30/23 20:18
*Neglect/Abuse Screening Last Done: 11/30/23 21:45
ED- Fall Risk Assessment Last Done: 11/30/23 20:18
*ED COVID-19 Vaccine History Last Done: 11/30/23 21:45
*Nursing Disposition Last Done: 11/30/23 21:45
ED- Neurological Assessment Last Done: 11/30/23 20:18
ED-Skin Assessment Last Done: 11/30/23 20:18
Discharge Date and Time
Discharge Date/Time: 11/30/23 21:46
Print Language: SWEDISH
[2023-11-30 19:48] LABS: % Basophils 0.4 % (0-2); % Eosinophils 0.7 % (0-6); % Immature Granulocytes 0.3 % (0-0.5); % Lymphocytes 3.7 % (20.5-51.1); % Neutrophils 85.9 % (42.2-75.2); Absolute Eosinophils 0.1 10^3/uL (0-0.7); Absolute Lymphocytes 0.3 10^3/uL (1.2-3.4); Absolute Monocytes 0.7 10^3/uL (0.1-0.6); Absolute Neutrophils 6.6 10^3/uL (1.4-6.5); Hematocrit 46.7 % (39.0-52.0); Hemoglobin 15.9 g/dL (13.0-18.0); Mean Corpuscular Hgb 30.8 pg (27.0-31.0); Mean Corpuscular Volume 90.3 fL (80.0-94.0); Mean Platelet Volume 9.3 fL (7.4-10.4); Nucleated Red Blood Cells % 0 % (-); Platelet Count 192 10^3/uL (130-400); Red Blood Cell Count 5.17 10^6/uL (4.70-6.10); Red Cell Dist. Width 12.9 % (11.5-14.5); White Blood Cell Count 7.6 10^3/uL (4.8-10.8)
[2023-11-30 19:49] LABS: Urine Albumin Negative (Neg - Trace); Urine Bilirubin Negative (Negative); Urine Character Clear (Clear); Urine Color Yellow; Urine Glucose Negative (Negative); Urine Ketone Negative (Negative); Urine Leukocyte Trace (Negative); Urine Nitrite Negative (Negative); Urine Occult Blood Negative (Negative); Urine Urobilinogen Negative (Neg - 1+)
[2023-11-30 20:00] VITALS: BP 135/85
[2023-11-30 20:01] LABS: INR 1.15; PT 14.6 Sec (11.4-14.6)
[2023-11-30 20:02] LABS: APTT 30.6 Sec (23.4-35.0)
[2023-11-30 20:04] LABS: COVID-19 Antigen Negative (Negative)
[2023-11-30 20:06] LABS: Urine Bacteria Few (Negative)
[2023-11-30 20:07] LABS: Lactic Acid 1.2 mmol/L (0.7-2.0)
[2023-11-30 20:22] LABS: Procalcitonin 0.08 ng/ml (0.0-0.25)
[2023-11-30 20:45] LABS: ALT (SGPT) 89 U/L (0-50); AST (SGOT) 75 U/L (17-59); Albumin 4.2 g/dl (3.5-5.0); Alkaline Phosphatase 55 U/L (38-126); Blood Urea Nitrogen 27 mg/dl (9-20); Calcium 9.7 mg/dl (8.4-10.2); Carbon Dioxide 26 mmol/L (22-30); Chloride 99 mmol/L (98-107); Glucose 122 mg/dl (70-99); Potassium 4.1 mmol/L (3.5-5.1); Sodium 133 mmol/L (135-145); Total Bilirubin 1.2 mg/dl (0.2-1.3); eGFR 58.01
[2023-11-30] MEDS: OMNICEF 300 MG PO (21:12)
== END 2023-11-30 21:46 | disposition home or self-care (01) ==
LOC: EMR 18:32
PROVIDERS: Physician Assistant; EMERGENCY PHYSICIAN Student in an Organized Health Care Education/Training Program; FAMILY PHYSICIAN Internal Medicine
DX: N39.0 Urinary tract infection, site not specified (principal); R50.9 Fever, unspecified; I10 Essential (primary) hypertension; Z11.52 Encounter for screening for COVID-19; E78.00 Pure hypercholesterolemia, unspecified; E03.9 Hypothyroidism, unspecified; E11.9 Type 2 diabetes mellitus without complications
CPT/HCPCS: 99284; 71046; 80053; 81003; 81015; 83605; 84145; 85025; 85610; 85730; 87040; 87086; 87502; 87811

== ENCOUNTER → 2023-12-07 11:16 | Outpatient (REF) | payer MEDICARE, BC, SELFPAY | LOC: RAD 11:16 | PROVIDERS: ATTENDING PHYSICIAN Internal Medicine | DX: R91.8 Other nonspecific abnormal finding of lung field (principal); C84.A0 Cutaneous T-cell lymphoma, unspecified, unspecified site | CPT/HCPCS: 71046 ==

== ENCOUNTER → 2023-12-14 10:46 | Outpatient (REF) | payer MEDICARE, BC, SELFPAY | LOC: HWRAD 10:46 | PROVIDERS: ATTENDING PHYSICIAN Internal Medicine; FAMILY PHYSICIAN Internal Medicine | DX: I25.10 Atherosclerotic heart disease of native coronary artery without angina pectoris (principal) | CPT/HCPCS: 75571 ==

== ENCOUNTER 2023-12-27 18:09 | Emergency (ER) | payer MEDICARE, BC, SELFPAY ==
[2023-12-27 18:18] VITALS: BP 149/88
[2023-12-27 18:42] LABS: % Basophils 0.7 % (0-2); % Eosinophils 1.3 % (0-6); % Immature Granulocytes 0.4 % (0-0.5); % Lymphocytes 5.7 % (20.5-51.1); % Monocytes 10.9 % (1.7-9.3); Absolute Basophils 0.1 10^3/uL (0-0.2); Absolute Eosinophils 0.1 10^3/uL (0-0.7); Absolute Lymphocytes 0.4 10^3/uL (1.2-3.4); Absolute Monocytes 0.8 10^3/uL (0.1-0.6); Absolute Neutrophils 6.1 10^3/uL (1.4-6.5); Hemoglobin 15.1 g/dL (13.0-18.0); Mean Corp Hgb Conc. 34.3 g/dL (33.0-37.0); Mean Corpuscular Volume 87.5 fL (80.0-94.0); Mean Platelet Volume 9.9 fL (7.4-10.4); Nucleated Red Blood Cells % 0 % (-); Platelet Count 222 10^3/uL (130-400); Red Blood Cell Count 5.03 10^6/uL (4.70-6.10); Red Cell Dist. Width 13.4 % (11.5-14.5); White Blood Cell Count 7.5 10^3/uL (4.8-10.8)
[2023-12-27 18:59] LABS: ALT (SGPT) 95 U/L (0-50); AST (SGOT) 84 U/L (17-59); Albumin 4.3 g/dl (3.5-5.0); Alkaline Phosphatase 60 U/L (38-126); Blood Urea Nitrogen 27 mg/dl (9-20); Calcium 9.9 mg/dl (8.4-10.2); Carbon Dioxide 31 mmol/L (22-30); Chloride 95 mmol/L (98-107); Glucose 114 mg/dl (70-99); Potassium 4.3 mmol/L (3.5-5.1); Sodium 138 mmol/L (135-145); eGFR > 60.00
[2023-12-27 19:53] VITALS: BMI 36.6
[2023-12-27 20:15] VITALS: BP 140/95
--- NOTE | 2023-12-27 21:19 | ED.GENMED ---
History of Present Illness
<Rakel Lenz PA-C - Last Filed: 12/28/23 01:06>
General
Chief Complaint: Fever
Source: patient
Exam Limitations: none
Time Seen by Provider: 12/27/23 20:32
Nursing documentation reviewed up to this point in time: agreed with
History of Present Illness
History of Present Illness:
Patient is a 73-year-old male with history hypertension, hyperlipidemia, cutaneous T-cell lymphoma presenting to the emerged part for evaluation of intermittent fevers at home. Patient reports intermittent fevers at home over the past 2 months. He
was most recently treated for pneumonia in the November which has cleared based upon repeat chest x-ray. He was admitted for fever in October of this year and was found to have E. coli bacteremia which was treated and suspected to be secondary to a sacral
wound. Patient states fevers recurred this past Sunday with temp spike up to 102.2 today. He notices temperatures spike around 4 PM in the afternoon and do resolve. Patient reports associated chills and body aches. He denies any other specific
symptoms including cough, abdominal pain, urinary symptoms, diarrhea, vomiting. Patient denies any known bug bites or any rashes.
However�patient does have cutaneous T-cell lymphoma-follows at [facility].
Past History
<Rakel Lenz PA-C - Last Filed: 12/28/23 01:06>
Past History
ED Past Medical History: Cancer (T- cell Lymphoma), GERD, HTN, Hypercholesterolemia, NIDDM, Hypothyroidism and Other (sleep apnea, BPH, urinary retention, Kidney stones, cutaneous T-cell lymphoma)
ED Past Surgical History: Brain (Craniotomy 05/02/2013 for removal of right frontal meningioma), Orthopedic (Left total knee replacement.), Urological (stent Kidney) and Other (hernia)
Social History
Tobacco: Non-smoker
Alcohol: None
Drug: None
Personal:
Living: with family
Family History
Family History: Other (Noncontributory)
Review of Systems
<Rakel Lenz PA-C - Last Filed: 12/28/23 01:06>
Review of Systems
Allergies reviewed?: Yes
All Other Systems: ROS reviewed and negative except as documented in HPI and ROS
Phy Exam
<Rakel Lenz PA-C - Last Filed: 12/28/23 01:06>
Physical Exam
Physical Exam:
Vitals: Vital signs stable. Temp 99.9 F
General: Patient is well appearing, no acute distress
Skin: Xerotic erythematous patches and plaques of cutaneous T-cell lymphoma scattered on bilateral upper and lower extremities.
Head: Normocephalic, atraumatic
Eyes: Sclera nonicteric. EOMs intact. No nystagmus.
Throat: Protecting airway
Neck: Normal ROM, no cervical spine tenderness, no meningismus
Cardiac: Regular rate and rhythm, no murmurs.
Pulm: Normal respiratory effort, no wheezes, rales, rhonchi heard on exam.
Abdomen: Mildly distended. Abdomen soft and nontender. No CVA tenderness
Extremities: No evidence of cyanosis or edema. Great distal pulses
Neuro: AAOx3. CN II-XII intact. No focal neurologic deficits. Strength 5 out of 5 in upper and lower extremities. Sensation fully intact.
Psychiatric: Normal affect.
Course
<Rakel Lenz PA-C - Last Filed: 12/28/23 01:06>
Orders/Labs/Results
Orders:
Orders
12/27/23 18:35
Complete Blood Count/With Diff Urgent
Comprehensive Metabolic Panel Urgent
12/27/23 21:10
CR Chest - 2 Views Urgent
Comment:
Reason For Exam: fevers
12/27/23 21:23
0.9% Sodium Chloride 1000 ml [Nss] 1,000 ml IV BOLUS
12/27/23 21:32
COVID-19 Antigen Urgent
Source: Nasal Swab
Lyme Progressive Urgent
Monotest Urgent
12/27/23 22:13
Urinalysis Reflex To Culture Urgent
Date Specimen was Collected: 12/27/23
Time Specimen was Collected: 22:12
12/27/23 23:47
Blood Culture Urgent
PAT Source: Blood/Venous
Specimen Description:
Abnormal Lab Results
12/27/23
18:35
Absolute Lymphs (auto) 0.4 L 10^3/uL
(1.2-3.4)
Absolute Monos (auto) 0.8 H 10^3/uL
(0.1-0.6)
Neutrophils % 81.0 H %
(42.2-75.2)
Lymphocytes % 5.7 L %
(20.5-51.1)
Monocytes % 10.9 H %
(1.7-9.3)
Chloride 95 L mmol/L
(98-107)
Carbon Dioxide 31 H mmol/L
(22-30)
BUN 27 H mg/dl
(9-20)
Glucose 114 H mg/dl
(70-99)
AST 84 H U/L
(17-59)
ALT 95 H U/L
(0-50)
12/27/23 18:35
12/27/23 18:35
Vital Signs
Initial and Last Documented VS:
Initial Vital Signs
Temp Pulse Resp BP Pulse Ox
99.9 F 94 18 149/88 96
12/27/23 18:18 12/27/23 18:18 12/27/23 18:18 12/27/23 18:18 12/27/23 18:18
Last Documented Vital Signs
Temp Pulse Resp BP Pulse Ox
98.5 F 109 21 118/72 92
08/22/24 23:46 12/28/23 00:15 12/28/23 00:15 12/27/23 23:46 12/28/23 00:00
<Juan Fraga MD - Last Filed: 12/27/23 23:05>
Orders/Labs/Results
Orders:
Orders
12/27/23 18:35
Complete Blood Count/With Diff Urgent
Comprehensive Metabolic Panel Urgent
12/27/23 21:10
CR Chest - 2 Views Urgent
Comment:
Reason For Exam: fevers
12/27/23 21:23
0.9% Sodium Chloride 1000 ml [Nss] 1,000 ml IV BOLUS
12/27/23 21:32
COVID-19 Antigen Urgent
Source: Nasal Swab
Lyme Progressive Urgent
Monotest Urgent
12/27/23 22:13
Urinalysis Reflex To Culture Urgent
Date Specimen was Collected: 12/27/23
Time Specimen was Collected: 22:12
12/27/23 23:47
Blood Culture Urgent
PAT Source: Blood/Venous
Specimen Description:
Abnormal Lab Results
12/27/23
18:35
Absolute Lymphs (auto) 0.4 L 10^3/uL
(1.2-3.4)
Absolute Monos (auto) 0.8 H 10^3/uL
(0.1-0.6)
Neutrophils % 81.0 H %
(42.2-75.2)
Lymphocytes % 5.7 L %
(20.5-51.1)
Monocytes % 10.9 H %
(1.7-9.3)
Chloride 95 L mmol/L
(98-107)
Carbon Dioxide 31 H mmol/L
(22-30)
BUN 27 H mg/dl
(9-20)
Glucose 114 H mg/dl
(70-99)
AST 84 H U/L
(17-59)
ALT 95 H U/L
(0-50)
12/27/23 18:35
12/27/23 18:35
Vital Signs
Initial and Last Documented VS:
Initial Vital Signs
Temp Pulse Resp BP Pulse Ox
99.9 F 94 18 149/88 96
12/27/23 18:18 12/27/23 18:18 12/27/23 18:18 12/27/23 18:18 12/27/23 18:18
Last Documented Vital Signs
Temp Pulse Resp BP Pulse Ox
98.5 F 109 21 118/72 92
12/27/23 23:46 12/28/23 00:15 12/28/23 00:15 12/27/23 23:46 12/28/23 00:00
<Rakel Lenz PA-C - Last Filed: 12/28/23 01:06>
MDM/Problems Addressed
Differential Diagnosis Includes:
Not limited to: Viral illness, Lyme disease, UTI, pneumonia, tickborne illness
MDM/Problems Addressed:
73-year-old male presenting with intermittent fevers at home without any other associated infectious symptoms. Vital signs are stable here with a borderline fever with a temp of 99.9F. Otherwise vital signs are stable. Abdomen is soft and
nontender. Lungs are clear bilaterally. Heart regular rate and rhythm. Patient is perfusing well. No focal neurologic deficits. Patient does have scattered cutaneous erythematous lesions from his cutaneous T-cell lymphoma although patient
believes none are different than baseline. Labs were initiated in triage. CBC shows a white count of 7.5, no leukocytosis. Chemistry shows evidence of mild elevations in both AST and ALT which appear chronic and stable. A urinalysis was obtained
which shows no evidence of infection. Viral swabs negative. Chest x-ray was obtained which shows no acute process, no evidence of pneumonia. A Lyme test was sent. Given patient's history of intermittent fevers of unknown origin and E. coli
bacteremia�did obtain blood culture although patient does not meet SIRS criteria at this time.
I personally rechecked his temperature myself which was 98.9F. Do not suspect bacteremia although patient was advised to follow cultures closely and follow with primary care. Will plan to call patient if blood cultures show pending. No indication
for admission at this time. Did contact infectious disease, Dr. Medina and attempt to expedite outpatient follow-up. Patient will contact her office to be seen inpatient. Very close return precautions discussed with patient. He will return
with any acute worsening or other new infectious symptoms. Patient seen with attending physician.
Chronic conditions affecting care:
Hypertension, hyperlipidemia, diabetes,
Acute Exacerbation and/or Progression of Chronic Illness:
N/A
<Rakel Lenz PA-C - Last Filed: 12/28/23 01:06>
*Radiology
Radiology exam reviewed: preliminary read by ED provider and radiology read reviewed
*Pulse Oximetry
Patient hypoxic: no
*EKG
Interpreted by ED Provider?: NA
*Legal Director Interpretation
Rate: Legal Director- N/A
*Critical Care Note
Total Time (30-74mins, 75-104mins- exclusive of procedures): Not Applicable
ED Attending Note
<Rakel Lenz PA-C - Last Filed: 12/28/23 01:06>
-
Portions of this chart may have been created with voice recognition software.� Occasional wrong word or��sound alike� substitutions may have occurred due to the inherent limitations of voice recognition software.
<Juan Fraga MD - Last Filed: 12/27/23 23:05>
ED Attending Note
Patient seen and examined by attending physician: Yes
ED Attending Note:
I have seen and evaluated the patient with a [id number] encounter. I have spoken to the advance practicer provider and involved in the medical history, the physical exam, medical decision making.
Evaluation and management service: agree unless noted differently below.
Results interpretation: agree unless noted differently below.
Focused HPI: 73-year-old male with history as documented presents for evaluation of fever. Patient multiple visits for fever over the past few months�most recently treated for pneumonia in late November. A few months ago had episode of E. coli
bacteremia thought to be related to sacral wound. He says that most recent fever started Sunday night into Sunday and then went away until last night when he spiked a fever again. He has not had any other specific symptoms�denies any cough, as of
breath, chest pain, abdominal pain, nausea, vomiting, diarrhea, dysuria, hematuria, change in frequency.
Physical exam: Awake alert not in distress. Blood pressure high normal. Heart rate in the 90s. Respiratory rate normal. Borderline fever here 37.7 �C. Pulse ox 96% on room air. He is breathing comfortably not in any distress. Mucous membranes
appear moist. He has multiple cutaneous lesions from T-cell lymphoma most notably left palm cracked skin to the feet bilaterally and scattered plaques on the lower extremities.
Medical Decision Makin-year-old male presents for fever once again�no other specific infectious symptoms. Vitals normal here. Exam as above. Screening labs sent off including a CBC which shows normal white count 7.5, CMP shows marginal
elevation in AST/ALT�similar to prior. His urinalysis shows no infection. Viral swabs were negative. Chest x-ray shows no pneumonia. Will draw and send blood cultures. STACEY discussed with infectious disease for outpatient follow-up. Possible
viral process, cellulitis a consideration with his multiple skin lesions but he says they all appear normal for him and not appear to be purulent or markedly erythematous. At this point no clear indication for admission. Spoke about return
precautions all questions answered.
Discharge Plan
Departure
Patient Disposition: Home (Routine Discharge)
Date of Disposition: 12/28/23
Time of Disposition: 00:13
Patient with high blood pressure during this ER visit?: No
Condition: Good
Covid-19: Negative COVID-19
Discharge Problem:
Fever of unknown origin, History of bacteremia
Instructions: Fever, Adult (DC)
Prescriptions:
No Action
levothyroxine 100 MCG tablet
100 mcg PO DAILY@0600
acetaminophen [Tylenol Extra Strength] 500 MG tablet
1,000 mg PO BID
halobetasol propionate 1 APPLIC ointment
1 applic topical DAILY
ezetimibe 10 MG tablet
10 mg PO QPM
triamcinolone acetonide 0.1 % Cream
1 applic TOPICAL TIDPRN PRN (Reason: hand pain)
bisacodyl [Dulcolax (bisacodyl)] 5 mg Tablet,Delayed Release (Dr/Ec)
10 mg PO HS
ramipril 10 mg Capsule
10 mg PO DAILY
aspirin 81 mg Capsule
81 mg PO DAILY
docusate sodium 50 mg Capsule
150 mg PO HS
therapeutic multivitamin Tablet
1 tab PO DAILY
chlorthalidone 50 mg Tablet
50 mg PO DAILY
bexarotene 75 mg Capsule
75 mg PO QPM
mupirocin 2 % Ointment
1 applic TOPICAL BID
ibuprofen 600 mg Tablet
600 mg PO DAILY
coenzyme Q10 [CoQ-10] 100 mg Capsule
100 mg PO DAILY
fenofibrate 160 mg Tablet
320 mg PO QPM
Rx Instructions:
take with 40mg tablet for total of 360mg
diclofenac sodium [Aspercreme Arthritis Pain] 1 % Gel
2 g TOPICAL QID
fenofibrate 40 mg Tablet
40 mg PO QPM
Rx Instructions:
take with 2 tablets of 160mg for total of 360mg
icosapent ethyl 1 gram Capsule
2 g PO BID
Valchlor 0.016 % Gel
1 applic TOPICAL HS
magnesium glycinate 470 mg tablet
470 mg PO SUTUTHSA
magnesium glycinate 470 mg tablet
1.5 tab PO MOWEFR
pantoprazole 40 mg tablet,delayed release (DR/EC)
40 mg PO DAILY
Actimmune 100 mcg/0.5 mL solution
66 mcg SC MOWEFR@1800
cephalexin 500 mg capsule
500 mg PO QID Qty: 18 0RF
cefdinir 300 mg capsule
300 mg PO BID Qty: 13 0RF
doxycycline hyclate 100 mg capsule
100 mg PO BID Qty: 14 0RF
Referrals:
Aaron Romo DO [Family Provider] -
Jillian Medina MD [Active] - Next open appointment
Activity Restrictions/Additional Instructions:
RETURN TO THE EMERGENCY DEPARTMENT WITH ANY COUGH, SORE THROAT, DIZZINESS, CHEST PAIN, SHORTNESS OF BREATH, ABDOMINAL PAIN, PERSISTENT FEVER, WORSENING IN CURRENT SYMPTOMS, OR ANY OTHER CONCERNS
-As discussed�it is importantly follow-up with your blood culture results in the next 24 hours. Please touch base with your primary care doctor tomorrow to ensure that these cultures are adequately followed up. We will contact you if these
cultures are positive. Continue to monitor your fevers at home and return to the emergency department any acute worsening
-Continue take Tylenol as needed for body aches/fever. Stay well-hydrated.
-Follow-up with infectious disease for further evaluation/management.
Monitor your symptoms closely and return to the emergency department with any acute worsening/new symptom
Interventions
Interventions:
*Risk Screen - Suicide Last Done: 12/27/23 18:18
*General Assessment Last Done: 12/27/23 18:18
*Neglect/Abuse Screening Last Done: 12/27/23 18:18
ED- Fall Risk Assessment Last Done: 12/28/23 00:34
*ED COVID-19 Vaccine History Last Done: 12/28/23 00:34
*Nursing Disposition Last Done: 12/28/23 00:34
ED- Neurological Assessment Last Done: 12/28/23 00:33
ED-Skin Assessment Last Done: 12/28/23 00:33
Discharge Date and Time
Discharge Date/Time: 12/28/23 00:35
Print Language: [id number]
[2023-12-27] MEDS: NSS 1000 IV (21:42)
[2023-12-27 21:56] LABS: COVID-19 Antigen Negative (Negative); Monotest Negative (Negative)
[2023-12-27 22:22] LABS: Urine Albumin Negative (Neg - Trace); Urine Bilirubin Negative (Negative); Urine Character Clear (Clear); Urine Color Yellow; Urine Glucose Negative (Negative); Urine Ketone Negative (Negative); Urine Leukocyte Negative (Negative); Urine Nitrite Negative (Negative); Urine Occult Blood Negative (Negative); Urine Urobilinogen Negative (Neg - 1+)
[2023-12-27 23:46] VITALS: BP 118/72
[2023-12-31 14:45] LABS: Lyme Antibody Screen, EIA Negative (Negative)
== END 2023-12-28 00:35 | disposition home or self-care (01) ==
LOC: EMR 18:09
PROVIDERS: Emergency Medicine; Physician Assistant; EMERGENCY PHYSICIAN Emergency Medicine; FAMILY PHYSICIAN Internal Medicine
DX: R50.9 Fever, unspecified (principal); Z11.52 Encounter for screening for COVID-19; I10 Essential (primary) hypertension; E11.9 Type 2 diabetes mellitus without complications; C84.A0 Cutaneous T-cell lymphoma, unspecified, unspecified site; E78.00 Pure hypercholesterolemia, unspecified; E03.9 Hypothyroidism, unspecified; G47.30 Sleep apnea, unspecified; K21.9 Gastro-esophageal reflux disease without esophagitis; N40.1 Benign prostatic hyperplasia with lower urinary tract symptoms; R33.8 Other retention of urine; M19.90 Unspecified osteoarthritis, unspecified site; Z86.19 Personal history of other infectious and parasitic diseases; Z85.828 Personal history of other malignant neoplasm of skin; Z87.442 Personal history of urinary calculi; Z96.652 Presence of left artificial knee joint; Z79.82 Long term (current) use of aspirin; Z88.1 Allergy status to other antibiotic agents; Z88.8 Allergy status to other drugs, medicaments and biological substances; Z91.048 Other nonmedicinal substance allergy status
CPT/HCPCS: 99284; 96360; 71046; 80053; 81003; 85025; 86308; 86618; 87040; 87811

== ENCOUNTER 2024-01-18 18:02 | Inpatient (IN) | payer MEDICARE, BC, SELFPAY ==
[2024-01-18] VITALS (23 sets, daily range): BP systolic 93–115; BP diastolic 53–77; BMI 37.0; BMI 36.6
[2024-01-18 12:21] LABS: % Basophils 0.3 % (0-2); % Eosinophils 0.1 % (0-6); % Immature Granulocytes 0.7 % (0-0.5); % Lymphocytes 1.1 % (20.5-51.1); % Monocytes 5.6 % (1.7-9.3); % Neutrophils 92.2 % (42.2-75.2); Absolute Basophils 0.1 10^3/uL (0-0.2); Absolute Immature Granulocytes 0.1 10^3/uL (0-0.05); Absolute Lymphocytes 0.2 10^3/uL (1.2-3.4); Absolute Monocytes 0.9 10^3/uL (0.1-0.6); Absolute Neutrophils 15.3 10^3/uL (1.4-6.5); Hematocrit 41.6 % (39.0-52.0); Hemoglobin 14.2 g/dL (13.0-18.0); Mean Corp Hgb Conc. 34.1 g/dL (33.0-37.0); Mean Corpuscular Hgb 29.2 pg (27.0-31.0); Mean Corpuscular Volume 85.4 fL (80.0-94.0); Mean Platelet Volume 9.4 fL (7.4-10.4); Nucleated Red Blood Cells % 0 % (-); Platelet Count 226 10^3/uL (130-400); Red Blood Cell Count 4.87 10^6/uL (4.70-6.10); Red Cell Dist. Width 13.6 % (11.5-14.5); White Blood Cell Count 16.6 10^3/uL (4.8-10.8)
[2024-01-18 12:37] LABS: ALT (SGPT) 110 U/L (0-50); AST (SGOT) 141 U/L (17-59); Albumin 3.8 g/dl (3.5-5.0); Alkaline Phosphatase 59 U/L (38-126); Blood Urea Nitrogen 30 mg/dl (9-20); Calcium 9.2 mg/dl (8.4-10.2); Carbon Dioxide 26 mmol/L (22-30); Chloride 99 mmol/L (98-107); Estimated Creatinine Clearance 56 ml/min; Glucose 149 mg/dl (70-99); Lactic Acid 1.9 mmol/L (0.7-2.0); Potassium 3.5 mmol/L (3.5-5.1); Sodium 137 mmol/L (135-145); Total Bilirubin 6.3 mg/dl (0.2-1.3); Total Protein 6.5 g/dl (6.3-8.2); eGFR 48.85
[2024-01-18 12:38] LABS: COVID-19 Antigen Negative (Negative)
--- NOTE | 2024-01-18 13:09 | ED.GENMED ---
History of Present Illness
General
Chief Complaint: Fever
Source: patient and spouse
Exam Limitations: none
Time Seen by Provider: 01/18/24 11:04
Nursing documentation reviewed up to this point in time: agreed with
History of Present Illness
History of Present Illness:
Patient is a 72-year-old male with history cutaneous T-cell lymphoma followed at [place] on oral chemotherapy medication presents for fevers off and on since October. He has been diagnosed with fever of unknown origin and is currently still following
with infectious disease Dr. Medina.
Patient reports however he had a temperature less than 104.1 which was the highest it ever has been. He also had rigors. He called infectious disease and they recommended he come to the ER. He last took Tylenol last night at 11:30 PM and took
ibuprofen 600 mg at 9 this morning. He denies any abdominal pain cough vomiting. He does report he had some gas pains last night was nauseous with high fever.
Past History
Past History
ED Past Medical History: Cancer (T- cell Lymphoma), GERD, HTN, Hypercholesterolemia, NIDDM, Hypothyroidism and Other (sleep apnea, BPH, urinary retention, Kidney stones, cutaneous T-cell lymphoma)
ED Past Surgical History: Brain (Craniotomy 05/02/2013 for removal of right frontal meningioma), Orthopedic (Left total knee replacement.), Urological (stent Kidney) and Other (hernia)
Social History
Tobacco: Non-smoker
Alcohol: None
Drug: None
Personal:
Living: with family
Family History
Family History: Other (Noncontributory)
Review of Systems
Review of Systems
Allergies reviewed?: Yes
All Other Systems: ROS reviewed and negative except as documented in HPI and ROS
Constitutional: Reports fever, fatigue and chills
Cardiac: Reports no symptoms; Denies chest pain
ABD/GI: Reports nausea and other ('gas pains' last night )
: Reports no symptoms
Musculoskeletal: Reports no symptoms
Skin: Reports no symptoms
Neurological: Reports no symptoms
Psychiatric: Reports no symptoms
Phy Exam
General Physical Exam
General Presentation: no apparent distress
General age: appears stated age
General Skin: warm and dry
General Habitus: normal
General Mental: alert
General Hydration: appears well hydrated
Cardiovascular Exam
Cardiovascular Exam: tachycardia
Pulmonary Exam
Pulmonary Exam: lungs clear and no respiratory distress
Gastrointestinal Exam
Gastrointestinal Exam: non tender and soft
Neurological Exam
Neurological Exam: alert and oriented x3
Musculoskeletal Exam
Musculoskeletal Exam: full ROM
Skin Exam
Skin Exam: normal color and warm/dry
Psychiatric Exam
Psychiatric Exam: normal mood/affect
Course
Orders/Labs/Results
Orders:
Orders
01/18/24 11:46
IV Insert/Care/Rem.- Treatment PRN
01/18/24 12:05
COVID-19 Antigen Urgent
Source: Nasal Swab
Complete Blood Count/With Diff Urgent
Comprehensive Metabolic Panel Urgent
Lactic Acid Urgent
Blood Culture Urgent
PAT Source: Blood/Venous
Specimen Description:
Influenza A+B Rapid Molecular Urgent
PAT Source: Nasal Swab
Specimen Description:
01/18/24 12:25
Blood Culture Urgent
PAT Source: Blood/Venous
Specimen Description:
01/18/24 12:29
Chest [CR Chest - 2 Views ] Urgent
Comment:
Reason For Exam: fever
01/18/24 13:00
UA Reflex to Culture [Urinalysis Reflex To Culture] Urgent
Date Specimen was Collected: 01/18/24
Time Specimen was Collected: 12:51
Urine Microscopic Reflex Cult Urgent
Urine Culture Urgent
PAT Source: U
Specimen Description:
Date Specimen was Collected: 01/18/24
Time Specimen was Collected: 12:51
01/18/24 13:19
0.9% Sodium Chloride 1000 ml [Nss] 1,000 ml IV BOLUS
01/18/24 13:23
CT Abd/pelvis W Iv Cont Urgent
Comment:
Reason For Exam: fever elevated bili/elevated wbc
01/18/24 15:26
Piperacillin/Tazo 3.375 Gram [Zosyn] 3.375 gram in 50 ml IV NOW
01/18/24 15:49
Indomethacin [Indocin] 100 mg .ROUTE .STK-MED ONE
01/18/24 16:19
INFECTIOUS DISEASE CONSULT Routine
Consulting Provider: Jillian Medina
Was physician already notified: Yes
Reason for consult: fevers, obstructing cbd stones
01/18/24 16:33
Admit/Transfer Patient As Directed
Co-Sign Provider:
Level of Care: Inpatient admission
Assign to:: ICU
Physician / Group: ryan lisa
Diagnosis: cbd dilation w/ obstructing stones
Reason for Hospitalization: cbd dilation w/ obstructing stones
Expected length of stay greater than two midnights?: Yes
ELOS- Estimated Length of Stay in days: 4
I certify the patient meets the requirements for IP care: Yes
Code Status As Directed
Resuscitation Status: Full Code
GASTROINTESTINAL CONSULT Routine
Consulting Provider: Alon Peralta
Was physician already notified: Yes
Reason for consult: cbd dilation obstructing stones
01/18/24 16:38
PRN Pain Medication Management As Directed
May give lesser potent ordered pain med per pt: Yes
preference::
Protocol:: Medication orders for pain may be administered in a
manner that supports deferring to patient preference
when the pt is:
- Requesting an ordered lesser potent pain medication.
Least to most potent pain medications are defined
as: acetaminophen < NSAID < tramadol < opioids
(morphine, oxycodone, hydromorphone).
- Requesting a lesser dose of the same medication IF
ORDERED.
- Requesting a less intrusive route of administration
if both routes are prescribed by the provider (PO <
IV).
01/18/24 16:42
SURGICAL CONSULT Routine
Consulting Provider: Ye Newman
Was physician already notified: Yes
Reason for consult: cholilthiasis , went to [facility] cbd stones
01/18/24 17:00
Lactated Ringers [Lr] 1,000 ml IV 80 mls/hr
01/18/24 17:04
Lipase Routine
01/19/24 08:00
0.9% Sodium Chloride [Nss (Preservative Free)] 10 ml IV DAILY
Pantoprazole [Protonix IV] 40 mg IV DAILY
Abnormal Lab Results
01/18/24 01/18/24 01/18/24
12:05 13:00 16:49
WBC 16.6 H 10^3/uL
(4.8-10.8)
Abs Immat Gran (auto) 0.1 H 10^3/uL
(0-0.05)
Absolute Neuts (auto) 15.3 H 10^3/uL
(1.4-6.5)
Absolute Lymphs (auto) 0.2 L 10^3/uL
(1.2-3.4)
Absolute Monos (auto) 0.9 H 10^3/uL
(0.1-0.6)
Immature Gran % 0.7 H %
(0-0.5)
Neutrophils % 92.2 H %
(42.2-75.2)
Lymphocytes % 1.1 L %
(20.5-51.1)
BUN 30 H mg/dl
(9-20)
Creatinine 1.5 H mg/dL
(0.7-1.3)
Glucose 149 H mg/dl
(70-99)
Total Bilirubin 6.3 H mg/dl
(0.2-1.3)
AST 141 H U/L
(17-59)
ALT 110 H U/L
(0-50)
Urine Ketones 1+ A
(Negative)
Ur Occult Blood Reflex 1+ A
(Negative)
Urine Bilirubin 3+ A
(Negative)
Urine Urobilinogen 3+ A
(Neg - 1+)
Leukocyte Esterase Rfl Trace A
(Negative)
Urine WBC (Reflex) 11-15 A /HPF
(0-5)
Urine Bacteria (Reflex) Moderate A
(Negative)
Urine Albumin (Reflex) 1+ A
(Neg - Trace)
POC Glucose 118 H mg/dl
(70-99)
01/18/24 12:05
01/18/24 12:05
Vital Signs
Initial and Last Documented VS:
Initial Vital Signs
Temp Pulse Resp BP Pulse Ox
99.6 F 101 20 107/65 94
01/18/24 10:21 01/18/24 10:21 01/18/24 10:21 01/18/24 10:21 01/18/24 10:21
Last Documented Vital Signs
Temp Pulse Resp BP Pulse Ox
97.8 F 76 15 109/73 94
01/18/24 15:36 01/18/24 15:45 01/18/24 15:45 01/18/24 14:00 01/18/24 10:21
MDM/Problems Addressed
Differential Diagnosis Includes:
Not limited to fever of unknown origin with elevated liver functions, cholecystitis ; ascending cholangitis;
MDM/Problems Addressed:
As documented patient is a 73-year-old male with history of T-cell lymphoma on oral chemotherapy presented with fevers for the past several months since October of unknown origin. Last night his fever was 104 with rigors. Patient presents awake alert
temp is 99.6 here patient has documented took ibuprofen at 945 this morning. Patient's white count is elevated 16,000 which is new along with elevated abnormal LFTs. Patient's bilirubin today is elevated at 6.3 ( was 1.0 ) 12/27/23. In addition
his AST and ALT are elevated. His lactate is normal at 1.9. On exam he has no abdominal tenderness discussed the radiology will order CAT scan with IV contrast to further evaluate cause for abnormal liver functions with fever and elevated white
count. His BUN is 30 his creatinine is 1.5 however GFR is 48 will hydrate.
At this time CAT scan does show severe extrahepatic biliary ductal dilatation common bile duct measuring up to 17 mm secondary to 2 obstructing calculi at the distal common bile duct measuring each approximately 5 mm. Case reviewed with GI on-call
Dr. Peralta. PT aware to remain NPO likely will need ERCP for concern of cholangitis. d/c / hospitalist. susan ordered
*Radiology
Radiology exam reviewed: radiology read reviewed
*Pulse Oximetry
Patient hypoxic: no
*Critical Care Note
Total Time (30-74mins, 75-104mins- exclusive of procedures): Not Applicable
Patient Management
Discussion with other providers: Clinical Therapist (GI Dr Peralta )
ED Attending Note
-
Portions of this chart may have been created with voice recognition software.� Occasional wrong word or��sound alike� substitutions may have occurred due to the inherent limitations of voice recognition software.
Discharge Plan
Departure
Patient Disposition: Admit
Date of Disposition: 01/18/24
Time of Disposition: 15:42
Admit to: Med/Surg
Admit to doctor: hospitalist
Presentation/result/management discussed w/ accepting MD/DO: Hospitalist
Patient with high blood pressure during this ER visit?: No
Condition: Fair
Covid-19: Not Applicable
Discharge Problem:
Biliary calculi, common bile duct, Fever, Acute cholangitis
Prescriptions:
No Action
levothyroxine 100 MCG tablet
100 mcg PO DAILY@0600
acetaminophen [Tylenol Extra Strength] 500 MG tablet
1,000 mg PO BID
halobetasol propionate 1 APPLIC ointment
1 applic topical DAILY
ezetimibe 10 MG tablet
10 mg PO QPM
triamcinolone acetonide 0.1 % Cream
1 applic TOPICAL TIDPRN PRN (Reason: hand pain)
bisacodyl [Dulcolax (bisacodyl)] 5 mg Tablet,Delayed Release (Dr/Ec)
10 mg PO HS
ramipril 10 mg Capsule
10 mg PO DAILY
aspirin 81 mg Capsule
81 mg PO DAILY
docusate sodium 50 mg Capsule
150 mg PO HS
therapeutic multivitamin Tablet
1 tab PO DAILY
chlorthalidone 50 mg Tablet
50 mg PO DAILY
bexarotene 75 mg Capsule
75 mg PO QPM
mupirocin 2 % Ointment
1 applic TOPICAL BID
ibuprofen 600 mg Tablet
600 mg PO DAILY
coenzyme Q10 [CoQ-10] 100 mg Capsule
100 mg PO DAILY
fenofibrate 160 mg Tablet
320 mg PO QPM
Rx Instructions:
take with 40mg tablet for total of 360mg
diclofenac sodium [Aspercreme Arthritis Pain] 1 % Gel
2 g TOPICAL QID
fenofibrate 40 mg Tablet
40 mg PO QPM
Rx Instructions:
take with 2 tablets of 160mg for total of 360mg
icosapent ethyl 1 gram Capsule
2 g PO BID
Valchlor 0.016 % Gel
1 applic TOPICAL HS
magnesium glycinate 470 mg tablet
470 mg PO SUTUTHSA
magnesium glycinate 470 mg tablet
1.5 tab PO MOWEFR
pantoprazole 40 mg tablet,delayed release (DR/EC)
40 mg PO DAILY
Actimmune 100 mcg/0.5 mL solution
66 mcg SC MOWEFR@1800
cephalexin 500 mg capsule
500 mg PO QID Qty: 18 0RF
cefdinir 300 mg capsule
300 mg PO BID Qty: 13 0RF
doxycycline hyclate 100 mg capsule
100 mg PO BID Qty: 14 0RF
Referrals:
Aaron Romo I., DO [Family Provider] -
Interventions
Interventions:
*Risk Screen - Suicide Last Done: 01/18/24 10:21
*General Assessment Last Done: 01/18/24 10:21
*Neglect/Abuse Screening Last Done: 01/18/24 10:21
ED- Fall Risk Assessment Last Done: 01/18/24 10:57
*ED COVID-19 Vaccine History Last Done: 01/18/24 10:57
*Nursing Disposition Last Done: 01/18/24 16:40
ED- Neurological Assessment Last Done: 01/18/24 10:57
ED-Skin Assessment Last Done: 01/18/24 10:57
Discharge Date and Time
Discharge Date/Time: 01/18/24 16:41
Print Language: PORTUGUESE
[2024-01-18] MEDS: NSS 1000 IV (13:27)
[2024-01-18 13:53] LABS: Urine Albumin 1+ (Neg - Trace); Urine Bilirubin 3+ (Negative); Urine Character Clear (Clear); Urine Color Amber; Urine Glucose Negative (Negative); Urine Ketone 1+ (Negative); Urine Leukocyte Trace (Negative); Urine Nitrite Negative (Negative); Urine Occult Blood 1+ (Negative); Urine Urobilinogen 3+ (Neg - 1+)
[2024-01-18 14:03] LABS: Urine Bacteria Moderate (Negative); Urine Red Blood Cell 0-2 /HPF (0-2); Urine Squamous Cell 0-2 /LPF (Few)
[2024-01-18] MEDS: ZOSYN 50 IV (15:28)
--- NOTE | 2024-01-18 16:06 | CON.GI ---
Consultation
-
Date/Time Consultation Requested: 01/18/2024, 3:35 PM
Date/Time Consultation Performed: 01/18/2024, 4:00 PM
Requesting Provider: Page Arnold
Performing Provider: Dr. Alon Peralta
Reason for Consultation: Choledocholithiasis, c/f cholangitis
Medical History
Chief Complaint / HPI
Chief Complaint: Fever up to 104
History of Present Illness:
Mr Muniz is a 73 y.o male with past medical history of HTN, NIDDM, GERD, hypothyroidism, SHYAM, nephrolithiasis (s/p stenting), R frontal meningioma (s/p craniotomy 04/2013), and cutaneous T-cell lymphoma (f/w [place], on oral chemo) who presented to
the ED with fevers.
Patient states fevers over the past several weeks to months. However, reports a fever of up to 104.1 at home which was the highest it ever has been. Additionally, noted to have rigors and chills. He called his ID physician and recommended to come
to the ED. Reports this current fever was different with additional nausea and abdominal discomfort which he described as gas pain. No other vomiting or abdominal pain. Denies any melena or bloody stools. He takes daily Aspirin but no other
antiplatelets or anticoagulants. He had a few peanut butter crackers around noon along with a few cups of water.
In the ED, patient was afebrile and HD-stable. Labs notable for BUN 30 and Hotel Yardperson 1.5. LFTs with AST 141, ALT 110, ALP 59, and T Bili 6.3. CBC with WBC 16.6 with left shift, Hgb 14.2, and plts 226. CXR (-) for acute cardiopulmonary process. CT
Abd/pelvis w/ IV contrast revealed mild intrahepatic and severe extrahepatic biliary ductal dilatation (common bile duct measures up to 17 mm) secondary to 2 obstructing calculi in the distal common bile duct each measuring approximately 5 mm and a
small periampullary duodenal diverticulum. Additionally, noted cholelithiasis without acute cholecystitis and bilateral nonobstructing renal calculi without obstructive uropathy. Started on IV antibiotics and admitted to medicine.
Past Medical History
Past Medical History: Other (HTN, NIDDM, GERD, hypothyroidism, SHYAM, nephrolithiasis (s/p stenting), R frontal meningioma (s/p craniotomy 04/2013), and cutaneous T-cell lymphoma )
Past Surgical History: Other (Brain (Craniotomy 05/02/2013 for removal of right frontal meningioma), Orthopedic (Left total knee replacement.), Urological (stent Kidney) and Other (hernia))
Social History
Tobacco: Non-Smoker
Alcohol: None
Drug: None
Family History
Family History: Reviewed & Not Pertinent
Allergies / Home Medications
Allergy/AdvReac Type Severity Reaction Status Date / Time
azithromycin Allergy Rash Verified 01/18/24 10:24
pollen extracts Allergy Hayfever, Verified 01/18/24 10:24
rosefever
Hcaifcq-BPO-BcF Reductase Allergy 'sometimes Verified 01/18/24 10:24
Inhibitor they
bother me
but I am
on one now'
tamsulosin [From Flomax] Allergy Dizziness Verified 01/18/24 10:24
�Medication �Instructions �Recorded
levothyroxine 100 mcg tablet 100 mcg PO DAILY@0600 Thyroid 09/01/15
acetaminophen 500 mg tablet 1,000 mg PO BID Pain 11/18/15
(Tylenol Extra Strength)
ezetimibe 10 mg tablet 10 mg PO QPM High cholesterol 09/13/20
halobetasol propionate 0.05 % 1 applic topical DAILY foot lesions 09/13/20
topical ointment
aspirin 81 mg capsule 81 mg PO DAILY Blood clot 04/14/22
prevention/tx
bisacodyl 5 mg tablet,delayed 10 mg PO HS Constipation 04/14/22
release (Dulcolax (bisacodyl))
ramipril 10 mg capsule 10 mg PO DAILY Blood pressure 04/14/22
triamcinolone acetonide 0.1 % 1 applic topical TIDPRN PRN hand 04/14/22
topical cream pain
bexarotene 75 mg capsule 75 mg PO QPM Cancer 10/26/23
chlorthalidone 50 mg tablet 50 mg PO DAILY Blood Pressure 10/26/23
coenzyme Q10 100 mg capsule 100 mg PO DAILY Supplement 10/26/23
(CoQ-10)
diclofenac sodium 1 % topical gel 2 g topical QID bilateral knee pain 10/26/23
(Aspercreme Arthritis Pain)
docusate sodium 50 mg capsule 150 mg PO HS Constipation 10/26/23
fenofibrate 160 mg tablet 320 mg PO QPM High Cholesterol 10/26/23
fenofibrate 40 mg tablet 40 mg PO QPM High Cholesterol 10/26/23
ibuprofen 600 mg tablet 600 mg PO DAILY Pain 10/26/23
icosapent ethyl 1 gram capsule 2 g PO BID High Cholesterol 10/26/23
interferon gamma-1b (Actimmune) 66 mcg SC MOWEFR@1800 Cancer 10/26/23
magnesium glycinate 1.5 tab PO MOWEFR Electrolyte 10/26/23
Repletion
magnesium glycinate 470 mg PO SUTUTHSA Electrolyte 10/26/23
Repletion
mechlorethamine 0.016 % topical 1 applic topical HS cancer skin 10/26/23
gel (Valchlor) patches
mupirocin 2 % topical ointment 1 applic topical BID buttocks 10/26/23
pantoprazole 40 mg tablet,delayed 40 mg PO DAILY Gastrointestinal 10/26/23
release Issue
therapeutic multivitamin 1 tab PO DAILY Supplement 10/26/23
cephalexin 500 mg capsule 500 mg PO QID #18 caps 10/28/23
cefdinir 300 mg capsule 300 mg PO BID #13 caps 11/30/23
doxycycline hyclate 100 mg capsule 100 mg PO BID #14 caps 11/30/23
Review of Systems
-
All other systems: A 12 pt ROS was Negative except as stated above in HPI
Vital Signs
Temp Pulse Resp BP Pulse Ox
97.8 F 76 15 109/73 94
01/18/24 15:36 01/18/24 15:45 01/18/24 15:45 01/18/24 14:00 01/18/24 10:21
Physical Exam
Exam
General: Well Developed, Well Nourished, No Apparent Distress and Comfortable
HEENT: Moist Mucous Membranes
Respiratory: Clear
Cardiac: Regular Rhythm
GI: Soft, Non Tender and Distended
Skin: Warm
Neuro: AO x 3 and Nonfocal/Grossly Intact
Psych: Calm
Results
WBC 16.6 10^3/uL (4.8-10.8) H 01/18/24 12:05
Hgb 14.2 g/dL (13.0-18.0) 01/18/24 12:05
Hct 41.6 % (39.0-52.0) 01/18/24 12:05
MCV 85.4 fL (80.0-94.0) 01/18/24 12:05
Plt Count 226 10^3/uL (130-400) 01/18/24 12:05
Absolute Neuts (auto) 15.3 10^3/uL (1.4-6.5) H 01/18/24 12:05
Sodium 137 mmol/L (135-145) 01/18/24 12:05
Potassium 3.5 mmol/L (3.5-5.1) 01/18/24 12:05
Chloride 99 mmol/L (98-107) 01/18/24 12:05
Carbon Dioxide 26 mmol/L (22-30) 01/18/24 12:05
BUN 30 mg/dl (9-20) H 01/18/24 12:05
Creatinine 1.5 mg/dL (0.7-1.3) H 01/18/24 12:05
Calcium 9.2 mg/dl (8.4-10.2) 01/18/24 12:05
Total Bilirubin 6.3 mg/dl (0.2-1.3) H 01/18/24 12:05
AST 141 U/L (17-59) H 01/18/24 12:05
ALT 110 U/L (0-50) H 01/18/24 12:05
Alkaline Phosphatase 59 U/L (38-126) 01/18/24 12:05
Diagnostic Image Results:
CT Abd/pelvis w/ IV contrast revealed mild intrahepatic and severe extrahepatic biliary ductal dilatation (common bile duct measures up to 17 mm) secondary to 2 obstructing calculi in the distal common bile duct each measuring approximately 5 mm and
a small periampullary duodenal diverticulum
Assessment / Plan
-
Mr Muniz is a 73 y.o male with past medical history of HTN, NIDDM, GERD, hypothyroidism, SHYAM, nephrolithiasis (s/p stenting), R frontal meningioma (s/p craniotomy 04/2013), and cutaneous T-cell lymphoma (f/w [place], on oral chemo) who presented to
the ED with fevers.
#Cholangitis
#Elevated LFTs #Biliary Obstruction
#Choledocholithiasis #Cholelithiasis
#Hx of Cutaneous T Cell Lymphoma
Impression: Patient presenting with high grade fevers of 104 found to have elevated LFTs concerning for biliary obstruction with T Bili 6s and CT imaging revealing new, marked biliary ductal dilatation and two CBD stones within the distal CBD.
Presentation is most concerning for cholangitis secondary to obstructing stones and would benefit from urgent ERCP for stone extraction and biliary decompression especially given that patient is immunocompromised 2/2 T-cell lymphoma on chemo.
Currently HD-stable and would benefit from urgent ERCP.
Recommendations:
- Keep NPO
- Start IV Zosyn
- Plan for urgent ERCP today, 01/18/2024, due to concern for cholangitis
- Trend LFTs q daily with total fractionated bilirubin
- Recommend general surgery consult for lap evon after ERCP
- IV anti-emetics and pain control PRN
- Discussed benefits and risks at length with family. Including post-ERCP pancreatitis, bleeding, infection and/or perforation. Patient and family agreeable to procedure
- See same day ERCP for additional recommendations
Discussed with internal medicine team in ED.
GI team will continue to follow.
Data Reviewed
-
Radiology: Image Personally Visualized and interpreted and Report Reviewed by me
CT Scan: Image Personally Visualized and interpreted and Report Reviewed by me
Old Records: Reviewed
-
-
Thank you for consultation and allowing me to participate in the patient's care. Please call the computer operations supervisor GI physician during the after hours with any questions or concerns.
--- NOTE | 2024-01-18 16:06 | W.PN.UPDATE ---
Update Note
Progress Note Update
This note serves as an addendum to the H&P by container finishing inspector TONE So CHAIREZ
HPI
73M HX cutaneous T-cell lymphoma followed at [facility] on oral chemotherapy medication presents for fevers off and on since October. Pito HX FUO and f/u with ID Dr. Medina.
Reports mid gas pain last night but non tender abdomen on exam.
last night spike temp to 104
WBC 16.6 nml
lactic 1.9.
Today labs are newly abnormal! bili 6.3 AST [address] does show severe extrahepatic biliary ductal diliation CBD 17mm secondary to 2 obs calculi in the distal common bile duct measuring approx 5 mm.
Vital Signs
Temp Pulse Resp BP Pulse Ox
97.8 F 76 15 109/73 94
01/18/24 15:36 01/18/24 15:45 01/18/24 15:45 01/18/24 14:00 01/18/24 10:21
PE
Gen: obese but not toxic looking
HEENT: no pallor
Neck: supple
Lungs: CTA
Cor: RRR S1 S2
Abdomen: obese , NT, NG , NRT
EARLY YEARS TEACHER: AAO3 , NFND
MS: No edema
Psych: nl mood. nl affect
Laboratory Tests
12/27/23 01/18/24
18:35 12:05
WBC 16.6 H
Immature Gran % 0.7 H
BUN 27 H 30 H
Creatinine 1.2 1.5 H
eGFR > 60.00 48.85
Glucose 114 H 149 H
Total Bilirubin 1.0 6.3 H
AST 84 H 141 H
ALT 95 H 110 H
CXR
No active pulmonary process.
01/18/24 CT Abd/pelvis W Iv Cont
- Mild intrahepatic and severe extrahepatic biliary ductal dilatation (common bile duct measures up to 17 mm) secondary to 2 obstructing calculi in the distal common bile duct each measuring approximately 5 mm. The more inferior calculus is
positioned at or just above the level of the ampulla. Of note, there is a small periampullary duodenal diverticulum.
- Cholelithiasis without acute cholecystitis.
- Bilateral nonobstructing renal calculi. No obstructive uropathy.
- Other chronic/incidental findings as detailed in the body of the report.
ASSESSMENT & PLAN
Pending Rx reconciliation
FUO with new obstructive pattern LFTS , LA 1.9, Leucocytosis
Presumed Sepsis with hypotension (fever, hi WCC ) suspect biliary origin
Choledocholithiasis: CT POS for severe EHD dilatation plus dilated CBD due to 2 obstructing calculi in the distal cBD
HX cholelithiasis
Immuno compomised host
- BCx sent
- septic Fluid with LR IVF
- Empric IV Unasyn
- NPO with sips
- held all anti HTN meds
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
- monitor LFTs an
- ID consult
- GI consulted; for urgent ERCP per GO
- GS consult
T-cell lymphoma on photopheresis
- Hold bexarotene for now due to sepsis last dose was lasnight
Hyperlipidemia
- held statin, Zetia, fenofibrate
Essential hypertension
- Hold amlodipine, chlorthalidone, ramipril due to risk for hypotension from sepsis
HX Serratia UTI/bacteremia
Obesity
HX DM - but report he is no longr diabetic
- add ISS low
- check A1C
Suspect CKD2 with THALIA due to sepsis
- LR IVF
- Trend Cr
HX kidney stones
Hypothyroidism
-Continue levothyroxine
HX SHYAM
BPH
DVT Px: SCD
Code: Full
ICU
--- NOTE | 2024-01-18 16:21 | HPS.HSE ---
Family Physician
-
Family Physician: Aaron Romo
Chief Complaint
-
Nausea, fevers on and off since October
History of Present Illness
73-year-old male from home who reports fevers on and off since October. He reports initially they were 2 weeks apart then became 1 week apart. He states no one has been able to figure them out. He called Dr. Lopez from infectious disease who
told him to come to the ER for evaluation today. He states last night he had 104 temp with some nausea. He denies any abdominal pain or postprandial pain or nausea. He denies headache, sore throat, chest pain, palpitations, shortness breath,
cough, abdominal pain, vomiting, diarrhea, urinary symptoms. While in the ER he had CT abdomen pelvis showing severely dilated CBD measuring 17 mm with 2 obstructing distal common bile duct calculi. He has past medical history of cutaneous T cell
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
Medical History
Past Medical History
Past Medical History: Reports Other
Additional Past Medical History:
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
DM 2 diet-controlled
HTN
HLD
GERD
hypothyroidism
SHYAM
BPH,
obesity
FUR BLENDER meningioma s/p resection 2012 at [facility]
Past Surgical History: Reports Other
Additional Past Surgical History:
FUR BLENDER meningioma s/p resection 2012 at [facility]
Left lower abdominal hernia repair 1989
Left knee replacement 2011
Social History
Tobacco: Non-smoker
Alcohol: None
Drug: None
Personal:
Living: With Family ( Carin and Evan son at bedside)
Employment: Retired
Family History
Family History: Other (Sister gallstones, mother COPD father asbestosis complications, history of pacemaker)
Allergies / Home Medications
Allergies reflects when Allergies were last updated in [facility].
Home Medications with original date entered in [facility]
Allergy/Medication List:
Medications on admission are unable to be verified or confirmed at this time.
Review of Systems
-
History Source: Patient and Family ( and son at bedside)
A 12 point ROS was completed and negative except as noted: Yes
Constitutional: Reports Fever and Chills; Denies Fatigue
EENT: Denies Tearing or Runny Nose
Respiratory: Denies Trouble Breathing
Cardiac: Denies Chest Pain, Diaphoresis, Palpitations or Syncope
Abdomen/GI: Reports Nausea and Vomiting; Denies Abdominal Pain, Diarrhea, Constipated, Bloody Stools or Black Stools
: Denies Dysuria, Frequency, Flank Pain or Incontinence
Musculoskeletal: Denies Joint Pain or Edema
Skin: Reports Rash (Chronic skin rash macular scattered pink in color to arms legs, trunk with history of cutaneous T-cell lymphoma); Denies Itching
Neurological: Denies Dizzy or Headache
Endocrine: Reports No Symptoms
Hematologic/Lymphatic: Reports No Symptoms
Psych: Reports Calm
Physical Exam
Vital Signs
Vital Signs
Temp Pulse Resp BP Pulse Ox
97.8 F 76 15 109/73 94
01/18/24 15:36 01/18/24 15:45 01/18/24 15:45 01/18/24 14:00 01/18/24 10:21
Physical Exam
General: Comfortable and Conversant; No Pain, Fever or Chills
HEENT: NormoCephalic, Anicteric and PERRLA
Respiratory: Clear; No Wheezes, Rales or Rhonchi
Cardiac: S1/S2 and Regular Rhythm; No Murmur, Rub or Gallop
Breast: Deferred by me
GI: Soft, Non Tender, Non Distended, Normal Bowel Sounds and No Hepatosplenomegaly
Rectal: Deferred by Provider
Genito-urinary: Deferred by me
Musculoskeletal: No Clubbing, No Cyanosis and No Edema
Skin: Warm, Dry and Rash (Chronic skin rash macular scattered pink in color to arms legs, trunk with history of cutaneous T-cell lymphoma)
Neuro: AO x 3, No Motor Deficits, Nonfocal/grossly intact and No Sensory Deficits; No Slurred Speech, Facial Droop, Tremors or Sedated
Psych: Calm
Laboratory Results
-
01/18/24 12:05
01/18/24 12:05
Laboratory Results
Lactic Acid 1.9 mmol/L (0.7-2.0) 01/18/24 12:05
Total Bilirubin 6.3 mg/dl (0.2-1.3) H 01/18/24 12:05
AST 141 U/L (17-59) H 01/18/24 12:05
ALT 110 U/L (0-50) H 01/18/24 12:05
Alkaline Phosphatase 59 U/L (38-126) 01/18/24 12:05
Data Reviewed
-
CT Scan: Report Reviewed by me
Lab Data: Labs Reviewed by me
Impression/Plan
-
Impression/plan:
Admit to ICU
#CBD dilatation secondary to obstructing CBD stones in immunocompromised patient
WBC 16.6 patient's baseline is 3.3 due to T-cell lipoma did receive Actimmune on 01/16/2024
Reported subjective fever 01/17/2024 104
-N.p.o. for ERCP today
-IV Unasyn
-IV LR
-IV PPI
-Consult GI
-Consult general surgery regarding cholelithiasis per GI request
-Consult infectious disease
-Follow CBC, CMP, blood cultures x 2
[address] abdomen pelvis with IV contrast:
1. Mild intrahepatic and severe extrahepatic biliary ductal dilatation (common bile duct measures up to 17 mm) secondary to 2 obstructing calculi in the
distal common bile duct each measuring approximately 5 mm.
The more inferior calculus is positioned at or just above the level of the ampulla. Of note, there is a small periampullary duodenal diverticulum.
2. Cholelithiasis without acute cholecystitis.
3. Bilateral nonobstructing renal calculi. No obstructive uropathy.
#THALIA versus CKD
Creat 1.5 prior 1.2
-IV NSS 1 L given in ER will continue IV LR
-Follow CMP
-Hold chlorthalidone
#Cutaneous T-cell lymphoma hx
#Follows at [facility] with dermatology
-Baseline WBC 3.3 gets Actimmune Sunday last dose was 01/16/2024
Gets treated with extracorporeal photopheresis last dose 01/16/2024
-HOLD daily Targretin 75 mg at bedtime last dose was 01/17/2024
-HOLD Actimmune takes SQ Sunday last dose 01/16/2024
#Hx DM2 now diet controlled
-Accu-Cheks with SSI, check HgbA1c
# Hypotension/HTN�benign
BP 109/73
Hold ramipril 10 mg daily, chlorthalidone
#HLD
-Check lipid profile
-Continue fenofibrate when stable
#GERD
-IV PPI
#Hypothyroidism
- cont levothyroxine in a.m. if stable
#FUR BLENDER meningioma s/p resection 2012 at [facility]
-Reports yearly follow-ups due to some small reoccurring meningiomas
Has outpatient MRI next month
#SHYAM
-Monitor pulse ox night
#BPH
-No reported meds
#Obesity due to excess calorie consumption�BMI 37
Affects all aspects of care
Weight loss recommended, low-fat diabetic diet
DVT prophylaxis
Subcu Lovenox
Full code
[2024-01-18 17:00] LABS: Glucose - Point of Care 118 mg/dl (70-99)
[2024-01-18 17:54] LABS: Glucose - Point of Care 110 mg/dl (70-99)
[2024-01-18] MEDS: LR 1000 IV (18:58)
--- NOTE | 2024-01-18 19:05 | PTCARENOTE ---
Rec'd pt at 1835 via stretcher from PACU. Rec'd pt awake alert and oriented. No c/o pain or discomfort. Skin is pink wm and dry. Face is flushed. Pt with patches of dry skin on back and hands. Feet with dry peeling skin. Pt states is from his
lymphoma. L groin/abd fold with small slit of MASD. Respirs are unlabored on RA with sats of 94%. Bs are clear. Monitor SR. + pulses. Tr LE edema. Denies chest pain. VS as documented. ECG done. Abd is round and soft. Non-tender with + BS. Denies
nausea. Aware that he is NPO. Denies need to void currently. IV LR hung via RAC IV site at 80 ml/hr. Site wnl. Family in and plan of care reviewed with pt and family. Call buchanan in reach.
[2024-01-18 19:14] LABS: Lipase 65 U/L (23-300); Magnesium 1.4 mg/dl (1.6-2.3)
[2024-01-18] MEDS: LOVENOX 40 MG SC (19:56)
[2024-01-18] MEDS: MAGNESIUM SULFATE 50 IV (19:58)
--- NOTE | 2024-01-18 20:00 | PTCARENOTE ---
Received patient at 1900. Pt. awake, alert, and oriented. Denies pain and discomfort. Afebrile. Heart rhythm sinus. Blood pressure normotensive. Currently on room air. Lungs sound diminished, NPO. Voiding in urinal without issue. Skin as documented.
Discussed plan of care with patient. Vital signs stable at this time.
[2024-01-18 21:43] LABS: Glucose - Point of Care 141 mg/dl (70-99)
[2024-01-18] MEDS: UNASYN IV (22:09)
[2024-01-19] VITALS (28 sets, daily range): BP systolic 84–142; BP diastolic 59–94; BMI 36.5
--- NOTE | 2024-01-19 00:30 | PTCARENOTE ---
Pt. assessment unchanged. Pt. currently asleep. Appears comfortable. IV fluids infusing. Vital signs stable at this time.
--- NOTE | 2024-01-19 00:50 | PTCARENOTE ---
Pt. oxygen saturation down in 80s. Went into room to assess patient. Patient pulled off bipap mask. Refusing to put it back on. Nasal cannula placed on patient at 4L. Pt. 02 saturation up to 95%. Educated patient on why she should wear bipap and
risks of not wearing it. Continues to refuse. Vital signs stable at this time.
[2024-01-19] MEDS: UNASYN IV ×4 (03:08→21:04)
--- NOTE | 2024-01-19 04:30 | PTCARENOTE ---
Pt. assessment remains unchanged. AM labs drawn. Vital signs stable at this time.
[2024-01-19 04:37] LABS: % Basophils 0.2 % (0-2); % Immature Granulocytes 0.4 % (0-0.5); % Lymphocytes 3.7 % (20.5-51.1); % Monocytes 5.2 % (1.7-9.3); % Neutrophils 90.5 % (42.2-75.2); Absolute Immature Granulocytes 0.1 10^3/uL (0-0.05); Absolute Lymphocytes 0.5 10^3/uL (1.2-3.4); Absolute Monocytes 0.7 10^3/uL (0.1-0.6); Absolute Neutrophils 11.6 10^3/uL (1.4-6.5); Hematocrit 34.7 % (39.0-52.0); Hemoglobin 11.8 g/dL (13.0-18.0); Mean Corpuscular Hgb 29.1 pg (27.0-31.0); Mean Corpuscular Volume 85.5 fL (80.0-94.0); Mean Platelet Volume 9.7 fL (7.4-10.4); Nucleated Red Blood Cells % 0 % (-); Platelet Count 180 10^3/uL (130-400); Red Blood Cell Count 4.06 10^6/uL (4.70-6.10); Red Cell Dist. Width 13.8 % (11.5-14.5); White Blood Cell Count 12.8 10^3/uL (4.8-10.8)
[2024-01-19 04:46] LABS: INR 1.29; PT 15.9 Sec (11.4-14.6)
[2024-01-19 04:47] LABS: APTT 43.7 Sec (23.4-35.0)
[2024-01-19 05:01] LABS: ALT (SGPT) 124 U/L (0-50); AST (SGOT) 141 U/L (17-59); Albumin 3.3 g/dl (3.5-5.0); Alkaline Phosphatase 54 U/L (38-126); Blood Urea Nitrogen 31 mg/dl (9-20); Calcium 8.8 mg/dl (8.4-10.2); Carbon Dioxide 26 mmol/L (22-30); Chloride 101 mmol/L (98-107); Estimated Creatinine Clearance 64 ml/min; Glucose 120 mg/dl (70-99); HDL Cholesterol 16 mg/dl; LDL Cholesterol, Calculated 78 mg/dl; Potassium 3.8 mmol/L (3.5-5.1); Sodium 141 mmol/L (135-145); Total Bilirubin 6.4 mg/dl (0.2-1.3); Total Cholesterol 151 mg/dl (50-199); Total Protein 5.9 g/dl (6.3-8.2); Triglyceride 287 mg/dl (10-149); Very Low Density Lipoprotein 57 mg/dl (0-30); eGFR 58.01
[2024-01-19] MEDS: LR 1000 IV ×2 (06:03→20:12)
[2024-01-19] MEDS: SYNTHROID PO (06:03)
[2024-01-19 07:42] LABS: Magnesium 2.2 mg/dl (1.6-2.3); Phosphorus 4.9 mg/dl (2.5-4.5)
--- NOTE | 2024-01-19 08:14 | CON.INTV ---
Consultation
Consultation Request
Date/Time Consultation Requested: 01/18/2024
Date/Time Consultation Performed: 01/19/2024 - 0810
Requesting Provider: ISAIAS Sullivan
Performing Provider: Ye Hawkins MD
Reason for Consultation: Sepsis
Medical History
-
Chief Complaint: Fevers to 104 �F + rigors
History of Present Illness:
73-year-old male with a past medical history of cutaneous T-cell lymphoma on phototherapy and chemotherapy, GERD, hypertension, obesity, history of kidney stones, history of MRSA, DM type II and meningioma s/p resection who presents with fevers to
104 �F + rigors. There was no abdominal pain or nausea. Initially in the ER he was afebrile to 99.6 �F, pulse rate 101, breathing at 20 breaths/min, BP 107/65 and saturating 94% on room air. Labs showed leukocytosis to 16.6, Hb 14.2, creatinine
1.5, glucose 149, magnesium 1.4, T. bili 6.3, AST 141 and ALT 110. ALP was normal at 59. Lipase also normal at 65. Urinalysis was negative for evidence of UTI albeit a trace leukocyte esterase. COVID antigen was negative as well. Blood cultures
were collected. CXR showed no active pulmonary process, and CT abdomen/pelvis with IV contrast showed severe extrahepatic biliary ductal dilation with CBD measuring 17 mm due to 2 obstructing calculi in the distal CBD. There is also a small
periampullary duodenal diverticulum. IVF given in the ER with NS 0.9% x1L and Zosyn. Patient was admitted to the hospitalist service with GI consulted. Patient urgently brought to endoscopy for ERCP given concern for developing cholangitis. Pus
was seen coming from the major papilla consistent with cholangitis and he underwent biliary sphincterotomy with balloon extraction of 3 stones, debris and pus. No additional filling defects were visualized during final repeat balloon occlusion
cholangiogram. Patient transferred to the ICU for further care and stores clerk services consulted for additional management/recommendations.
When I saw the patient he was resting in bed in no acute distress. Heart rate 66, BP 129/85, and saturating 95% on 4 L/min nasal cannula. He denies abdominal pain, chest pain, SOB, yellowing of the skin, tremors, nausea, vomiting, fevers or
chills. He also denies any urinary frequency, painful urination, burning with urination, or urinary urgency. Patient's at bedside as well as his niece. I answered all of their questions.
Of note, patient follows with ID with last visit on 01/15/[address] Medina for fever of unknown origin on immunosuppressive medications. He was referred to hematology for additional FUO workup as he is at increased risk of a second primary
with cutaneous T-cell lymphoma.
PMHx: Cutaneous T-cell lymphoma on phototherapy and Targretin, GERD, hypertension, obesity, hyperlipidemia, ED, meningioma brain s/p resection, history of bronchitis, athlete's foot bilaterally, history of kidney stones, history of MRSA, DM type II,
history of pneumonia
PSHx: Left knee replacement, hernia repair (1989), multiple kidney stones s/p urological procedures, meningioma resection, Mohs surgery
Past Medical History
Past Medical History: Other (Above as per HPI)
Past Surgical History: Other (Above as per HPI)
Social History
Tobacco: Non-smoker
Alcohol: None
Drug: None
Personal:
Living: With Family
Employment: Retired
Family History
Family History: CAD (Father), Cancer (Mother: Colon cancer), Diabetes (Father) and Other (Sibling: Kidney stones)
Allergies / Home Medications
Allergies
Allergy/AdvReac Type Severity Reaction Status Date / Time
azithromycin Allergy Full-body Verified 01/18/24 21:01
swelling/skin
rash
pollen extracts Allergy Hayfever, Verified 01/18/24 10:24
rosefever
[id number] Reductase AdvReac 'Cannot Verified 01/18/24 21:01
Inhibitor tolerate'
tamsulosin [From Flomax] AdvReac Dizziness Verified 01/18/24 21:01
Home Medications
�Medication �Instructions �Recorded �Confirmed �Last Taken �Type
levothyroxine 100 mcg tablet 100 mcg PO DAILY@0600 Thyroid 09/01/15 01/18/24 10/26/23 History
acetaminophen 500 mg tablet 1,000 mg PO BID@12,2300 Pain 11/18/15 01/18/24 10/25/23 History
(Tylenol Extra Strength)
ezetimibe 10 mg tablet 10 mg PO QPM High cholesterol 09/13/20 01/18/24 10/25/23 History
aspirin 81 mg capsule 81 mg PO DAILY Blood clot 04/14/22 01/18/24 10/25/23 History
prevention/tx
bisacodyl 5 mg tablet,delayed 10 mg PO DAILY@2300 Constipation 04/14/22 01/18/24 10/25/23 History
release (Dulcolax (bisacodyl))
ramipril 10 mg capsule 10 mg PO DAILY Blood pressure 04/14/22 01/18/24 10/26/23 History
triamcinolone acetonide 0.1 % 1 applic topical BID hands 04/14/22 01/18/24 Unknown History
topical cream
bexarotene 75 mg capsule 75 mg PO QPM Cancer 10/26/23 01/18/24 10/25/23 History
chlorthalidone 50 mg tablet 50 mg PO DAILY Blood Pressure 10/26/23 01/18/24 10/26/23 History
coenzyme Q10 100 mg capsule 100 mg PO QPM Supplement 10/26/23 01/18/24 10/25/23 History
(CoQ-10)
docusate sodium 50 mg capsule 100 mg PO DAILY@2300 Constipation 10/26/23 01/18/24 10/25/23 History
fenofibrate 160 mg tablet 320 mg PO QPM High Cholesterol 10/26/23 01/18/24 10/25/23 History
fenofibrate 40 mg tablet 40 mg PO QPM High Cholesterol 10/26/23 01/18/24 10/25/23 History
ibuprofen 600 mg tablet 600 mg PO DAILY Pain 10/26/23 01/18/2410/25/24 History
icosapent ethyl 1 gram capsule 2 g PO BID@08,18 High Cholesterol 10/26/23 01/18/24 10/26/23 History
interferon gamma-1b (Actimmune) 66 mcg SC MOWEFR@1800 Cancer 10/26/23 01/18/24 10/24/23 History
magnesium glycinate 2 tab PO DAILY@1200 Electrolyte 10/26/23 01/18/24 10/26/23 History
Repletion
pantoprazole 40 mg tablet,delayed 40 mg PO DAILY Gastrointestinal 10/26/23 01/18/24 10/26/23 History
release Issue
therapeutic multivitamin 1 tab PO DAILY Supplement 10/26/23 01/18/24 10/26/23 History
ketoconazole 2 % topical cream 1 applic topical DAILYPRN PRN 01/18/24 01/18/24 Unknown History
fungal foot infection
triamcinolone acetonide 0.1 % 1 applic topical DAILY feet 01/18/24 01/18/24 Unknown History
topical cream
Review of Systems
-
History Source: Patient
All other systems: Negative unless noted
Vitals / Labs / Diagnostic Testing
Vital Signs
Temp Pulse Resp BP Pulse Ox
97.6 F 62 14 110/78 93
01/19/24 08:53 01/19/24 09:00 01/19/24 09:00 01/19/24 09:00 01/19/24 09:00
Lab Data
01/19/24 04:25
01/19/24 04:25
Laboratory Results
01/19/24
04:25
PT 15.9 H
INR 1.29
APTT 43.7 H
Microbiology
01/18/24 12:05 Blood/Venous Blood Culture - Preliminary
Positive culture in progress
01/18/24 12:05 Blood/Venous Gram Stain - Preliminary
01/18/24 12:05 Nasal Swab Influenza Types A & B (SELWYN) - Final
Negative for Influenza A & B, NAAT
Negative results must be combined with clinical observations
and patient history.
Nucleic Acid Amplification test (NAAT)performed on the
[employer] NOW platform.
Diagnostic Testing:
Physical Exam
-
HEENT: Normocephalic and Anicteric
Cardiovascular: S1/S2 and Peripheral Edema (negative)
Respiratory: Wheeze (negative), Rales (Right base heard in posterior lung field), Rhonchi (negative) and Non-Labored Respirations
GI: Soft, Distended (Abdominal obesity), Non Tender and Normal Bowel Sounds
Neurology: AO x 3 and Tremors (negative)
Skin: Warm, Dry and Other (Erythematous plaque with scaling seen in multiple spots, including left elbow, bilateral lower extremities, both palms)
General: Comfortable and Chills (negative)
Assessment
-
Assessment: 73-year-old male with a past medical history of cutaneous T-cell lymphoma on phototherapy and chemotherapy, GERD, hypertension, obesity, history of kidney stones, history of MRSA, DM type II and meningioma s/p resection who presents
with fevers to 104 �F + rigors. There was no abdominal pain or nausea. Initially in the ER he was afebrile to 99.6 �F, pulse rate 101, breathing at 20 breaths/min, BP 107/65 and saturating 94% on room air. Labs showed leukocytosis to 16.6, Hb
14.2, creatinine 1.5, glucose 149, magnesium 1.4, T. bili 6.3, AST 141 and ALT 110. ALP was normal at 59. Lipase also normal at 65. Urinalysis was negative for evidence of UTI albeit a trace leukocyte esterase. COVID antigen was negative as
well. Blood cultures were collected. CXR showed no active pulmonary process, and CT abdomen/pelvis with IV contrast showed severe extrahepatic biliary ductal dilation with CBD measuring 17 mm due to 2 obstructing calculi in the distal CBD. There
is also a small periampullary duodenal diverticulum. IVF given in the ER with NS 0.9% x1L and Zosyn. Patient was admitted to the hospitalist service with GI consulted. Patient urgently brought to endoscopy for ERCP given concern for developing
cholangitis. Pus was seen coming from the major papilla consistent with cholangitis and he underwent biliary sphincterotomy with balloon extraction of 3 stones, debris and pus. No additional filling defects were visualized during final repeat
balloon occlusion cholangiogram. Patient transferred to the ICU for further care and stores clerk services consulted for additional management/recommendations.
Chronic conditions LAST CHALKER: Cutaneous T-cell lymphoma on phototherapy and Targretin, GERD, hypertension, obesity, hyperlipidemia, ED, meningioma brain s/p resection, history of bronchitis, athlete's foot bilaterally, history of kidney stones, history of
MRSA, DM type II, history of pneumonia
Impression:
#Choledocholithiasis c/b ascending cholangitis s/p biliary sphincterotomy with balloon extraction of 3 stones, debris and pus during ERCP on 01/18/2024
#Sepsis without shock due to above
#Anemia
#Transaminitis due to above
#Bradycardia - no Hx of bradycardia
#Abnormal urinalysis with trace leukocyte esterase, unlikely due to UTI
#GNR bacteremia
#Hypothyroidism
#Hyperlipidemia
#History of cutaneous T-cell lymphoma on phototherapy + targretin
Plan:
- Continue with broad-spectrum antibiotics as per ID
- Currently on Unasyn s/p Zosyn x 1 dose on 01/18/2024
- Maintain MAP>65
- Continue IVF, mark while NPO
- Follow-up blood cultures (BCx from 01/18/2024 growing E. coli + Enterobacter spp. � follow-up species/sensitivities)
- Follow up urine Cx
- Defer diet to GI � currently on clear liquid diet
- prn anti-emetics (monitor QTc)
- Trend LFTs
- GI rec'd General surgery consult - recs appreciated
-Planning for laparoscopic cholecystectomy with possible cholangiogram today --> keep NPO until procedure is completed
- Maintain SpO2 >90-94%
- Replete electrolytes with K>4, Mg>2
- trend Hb and plt count and transfuse if needed to keep Hb>7, plt>50k (given pending OR)
- Maintain euglycemia with goal BG 140-180
- prn nebulized bronchodilators - not currently bronchospastic
- Incentive spirometer encouraged
- DVT ppx: LMWH
Given the patient has ascending cholangitis with bradycardia this morning and is awaiting to go to the OR, continue ICU level of care for this critically ill patient.
Critical care statement: A total of 40 minutes of critical care time was provided for this patient today. This includes management of unstable vital signs, evaluation of the patient at bedside, reviewing the patient's pertinent medical records
including radiographs, microbiology, laboratory evaluations, and discussion with primary team, consultants, pharmacy, nutrition, physical therapy, case management, charge nurse, critical care nursing, and respiratory therapy.
Data:
CT Abd/Pelvis with IV contrast 01/18/2024:
Mild intrahepatic and severe extrahepatic biliary ductal dilatation (common bile duct measures up to 17 mm) secondary to 2 obstructing calculi in the distal common bile duct each measuring approximately 5 mm. The more inferior calculus is positioned
at or just above the level of the ampulla. Of note, there is a small periampullary duodenal diverticulum.
Cholelithiasis without acute cholecystitis.
Bilateral nonobstructing renal calculi. No obstructive uropathy.
[2024-01-19] MEDS: PROTONIX IV 40 MG IV (08:40)
[2024-01-19] MEDS: NSS (PRESERVATIVE FREE) 10 ML IV (08:40)
[2024-01-19] MEDS: ARISTOCORT/TRIAMCINOLONE 0.1% CREAM 1 APPLIC TOPICAL ×3 (08:40→20:13)
[2024-01-19] MEDS: ASPIR LOW (ENTERIC COATED) PO ×3 (08:41→09:39)
[2024-01-19] MEDS: NON-FORMULARY ITEM PO ×3 (08:41→09:22)
--- NOTE | 2024-01-19 08:59 | W.PN.GI.CBS2 ---
Today's Communication / Plan
-
iv abx, clear liquid diet adv as tolerated, gen surg c/s
Assessment / Plan
-
Mr Muniz is a 73 y.o male with past medical history of HTN, NIDDM, GERD, hypothyroidism, SHYAM, nephrolithiasis (s/p stenting), R frontal meningioma (s/p craniotomy 04/2013), and cutaneous T-cell lymphoma (f/w [place]uyves[place], on oral chemo) who presented to
the ED with fevers, elevated bili, CT findings c/w choledocho all c/w cholangitis.
#Cholangitis
#Elevated LFTs #Biliary Obstruction
#Choledocholithiasis #Cholelithiasis
#Hx of Cutaneous T Cell Lymphoma
ERCP yesterday 01/[address] Peralta- pus, debris, 3 stones and biliary sphincterotomy performed
Recommendations:
- Clear liquid diet (was NPO last night I changed diet - ok for oral meds) advance as tolerated
- Monitor LFTs (unchanged from yesterday)
- Continue IV Zosyn
- Gen surgery consult
Subjective
Subjective
Date of Service: January 19, 2024
having some borborygmi from hunger
no fevers
Objective
Data Reviewed
Laboratory Data:
Laboratory Results
01/19/24 04:25
01/19/24 04:25
Laboratory Results
PT 15.9 Sec (11.4-14.6) H 01/19/24 04:25
INR 1.29 01/19/24 04:25
APTT 43.7 Sec (23.4-35.0) H 01/19/24 04:25
Phosphorus 4.9 mg/dl (2.5-4.5) H 01/19/24 04:25
Magnesium 2.2 mg/dl (1.6-2.3) 01/19/24 04:25
Total Bilirubin 6.4 mg/dl (0.2-1.3) H 01/19/24 04:25
AST 141 U/L (17-59) H 01/19/24 04:25
ALT 124 U/L (0-50) H 01/19/24 04:25
Alkaline Phosphatase 54 U/L (38-126) 01/19/24 04:25
Lipase Cancelled 01/18/24 17:04
Vital Signs and I&O:
Vital Signs
Temp Pulse Resp BP Pulse Ox
97.6 F 53 13 127/73 94
01/19/24 08:53 01/19/24 08:30 01/19/24 08:30 01/19/24 08:00 01/19/24 08:30
I&O
01/18/24 01/19/24 01/20/24
06:59 06:59 06:59
Intake Total 1170 / 1170
Output Total 1250 / 1250
Balance -80 / -80
Physical Exam
Physical Exam
GI: Non Distended and Non Tender
[2024-01-19] MEDS: SYNTHROID 100 MCG PO (09:05)
--- NOTE | 2024-01-19 09:25 | PTCARENOTE ---
Rec'd pt at 0700. Monitor SR. Lungs CTA, pox 93-96% RA. +BS, abd round. NPO. Vdg nito urine via urinal. Ambulated to bathroom with standby assistance. Loose woods stool.
--- NOTE | 2024-01-19 09:34 | CON.ID ---
Consultation
-
Date/Time Consultation Requested: 01/18/24 16:19
Date/Time Consultation Performed: 01/19/24 9:34
Requesting Provider: Baljeet GREWAL
Performing Provider: Carol BRYANT
Reason for Consultation: fevers, obstructing cbd stones
Chief Complaint / Past History
Chief Complaint
Nausea, fevers on and off since October
History of Present Illness
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 He has also recently been on interferon gamma which was stopped when he developed recurrent fevers. �Patient presents for a 3 month history of
recurrent fevers.� Patient has been keeping a fever log and daily and reports intermittent fevers as high as 102.0.� He relate the onset to a recent hospitalization for E coli bacteremia thought to be due to wound infection.� He reports fevers,
chills, malaise and body aches several times a week.� It resopnds to tylenol which he is taking PRN.� No headaches, current sinus tenderness, sore throat, cough, sputum production, vomiting, diarrhea, dysuria, rashes, joint pains.� His interferon
gamma was stopped due to these symptoms (as it is a common side effect) but there has been no resolution of symptoms.� He has been seen in the ER on 11/18, 11/29 and 12/27 for�fevers, each time his wbc count was either low or normal.� Mr Muniz relays
that he belives his baseline wbc count in low and he interprets normal numbers as being functionally high for him.� He has had a left shift 11/29 and 12/26. 11/18 blood cultures x2 negative, RSV negative,, rsv culture negative.� 11/29 blood culture,
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
ago and he feels concerned that he may have been exposed to pathogens in that process.� There was no definitive exposure and most of this construction was over 10 years ago.� He continues to follow with dermatology for the cutaneous t cell
lymphoma.� I recommended an FUO workup which is not yet done - of note he refused CT abdomen specifically. Called my office yesterday for 'convulsions' and I recommended he come to the ER. CT abdomen in the ER showed multiple obstructing CBD
stones.
Since arrival here he has been afebrile, bp initially mildly hypotensive now stable, wbc initially 16.6 now 12.8, hgb 11.8, plt 180, AEC 0.0, L shift persisted, cr 1.5 now 1.3 which is his baseline, t bili on arrival 6.3 (first time elevated), ast
141, alt 110, today t bili 6.4, ast remains 141 and alt 124, lipase 65, ua minimal pyuria, urine culture in progress, influenza negative, patient underwent ERCP found to have multiple CBD stones with purulence and nonopacified gallbladder post
removal, had a dose of zosyn in the ER and now on unasyn. ID is consulted for assistance with management.
Past History
Additional Past Medical History:
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
DM 2 diet-controlled
HTN
HLD
GERD
hypothyroidism
SHYAM
BPH,
obesity
Additional Past Surgical History:
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
Left lower abdominal hernia repair 1989
Left knee replacement 2011
Allergy History:
azithromycin Allergy (Verified 01/18/24 21:01)
Full-body swelling/skin rash
pollen extracts Allergy (Verified 01/18/24 10:24)
Hayfever, rosefever
Matlnin-QMA-YbA Reductase Inhibitor Adverse Reaction (Verified 01/18/24 21:01)
'Cannot tolerate'
tamsulosin [From Flomax] Adverse Reaction (Verified 01/18/24 21:01)
Dizziness
Medications Reviewed: Yes
Social History
Tobacco: Non-Smoker
Alcohol: None
Drug: None
Family History
Family History: Not Pertinent
Review of Systems
Review of Systems
General: Fever and Chills
All systems: All other systems were reviewed and were negative
Vital Signs
Temp Pulse Resp BP Pulse Ox
97.6 F 62 14 110/78 93
01/19/24 08:53 01/19/24 09:00 01/19/24 09:00 01/19/24 09:00 01/19/24 09:00
Physical Exam
Physical Exam
Constitutional: No Acute Distress and Chronically Ill
Cardiovascular: Regular Rate and S1/S2; Negative Murmur or Rub
Pulmonary: Clear and Symmetric; Negative Wheezes, Rales or Rhonchi
Gastrointestinal: Soft, Non Tender, Non Distended and Normal Bowel Sounds
Skin: Warm, Dry and Rash; Negative Jaundice
Lab / Diagnostic Study Results
01/19/24 04:25
01/19/24 04:25
Abs Immat Gran (auto) 0.1 10^3/uL (0-0.05) H 01/19/24 04:25
Absolute Neuts (auto) 11.6 10^3/uL (1.4-6.5) H 01/19/24 04:25
Absolute Lymphs (auto) 0.5 10^3/uL (1.2-3.4) L 01/19/24 04:25
Absolute Monos (auto) 0.7 10^3/uL (0.1-0.6) H 01/19/24 04:25
Absolute Basos (auto) 0.0 10^3/uL (0-0.2) 01/19/24 04:25
Immature Gran % 0.4 % (0-0.5) 01/19/24 04:25
Neutrophils % 90.5 % (42.2-75.2) H 01/19/24 04:25
Lymphocytes % 3.7 % (20.5-51.1) L 01/19/24 04:25
Monocytes % 5.2 % (1.7-9.3) 01/19/24 04:25
Eosinophils % 0.0 % (0-6) 01/19/24 04:25
Basophils % 0.2 % (0-2) 01/19/24 04:25
PT 15.9 Sec (11.4-14.6) H 01/19/24 04:25
INR 1.29 01/19/24 04:25
Lactic Acid 1.9 mmol/L (0.7-2.0) 01/18/24 12:05
Ur Squamous Epith Cells 0-2 /LPF (Few) 01/18/24 13:00
Microbiology Results
Micro:
01/18/24 12:05 Blood Culture - Preliminary
Blood/Venous Positive culture in progress
Gram Stain - Preliminary
01/19/24 04:25 MRSA Screen - Pending
Nose
01/18/24 13:00 Urine Culture - Pending
Urine
01/18/24 12:05 Influenza Types A & B (SELWYN) - Final
Nasal Swab Negative for Influenza A & B, NAAT
Negative results must be combined with clinical observations
and patient history.
Nucleic Acid Amplification test (NAAT)performed on the
[employer] ID NOW platform.
01/18/24 12:25 Blood Culture - Pending
Blood/Venous
Assessment / Plan
Choledocolithiasis
GNR bacteremia
- s/p ERCP with removal of CBD stones and expression of purulence
- agree with cholecystectomy when feasible
- continue unasyn
- follow clinically
FUO
- note FUO began several months before the transaminitis, it may not yet be resolved
- FUO workup was already ordered outpatient and would recommend completing that workup at [facility] if fevers ongoing
Care Review
Plan reviewed with: Physician (Dr Hawkins )
[2024-01-19 09:57] LABS: Glycohemoglobin (HgbA1c) 6.3 % (4.0-5.6)
--- NOTE | 2024-01-19 10:56 | W.PN.HOSP.TC ---
Addendum entered and electronically signed by Darryl Newton MD 01/19/24 16:54:
I saw and evaluated the patient. I reviewed the resident�s note and agree with findings and plan as documented in the resident�s note.
1. Acute cholangitis from choledocholithiasis
Obstructive jaundice
Cholelithiasis
Sepsis in Immunocompromised patient-POA
Enterobacter/E. coli bacteremia
-Patient had ongoing episodic fever and presented with new nausea/rigors found to be septic in ER
-Abdomen pelvis showing dilated CBD of 17 mm with 2 calcified stone in distal CBD
-Patient underwent emergent ERCP with biliary sphincterotomy with stone extraction, noted to having passed draining from ampulla
-General Surgery involved in care and patient underwent lap cholecystectomy
-Blood culture 1 set growing E. coli/Enterobacter species follow-up further susceptibility
-Patient maintained on empiric IV Zosyn initially, has changed to IV Unasyn by ID. Help appreciated
2. THALIA on CKD stage IIIA
-Creatinine is improved, continue monitoring
3. Hypotension
-Was hypotensive, was monitored in ICU blood pressure improved.
-did not require pressors, continue monitoring
Original Note:
Today's Communication/Plan
-
Cholecystectomy in the morning. Recovery/pain management per surgery. Will c/w Abx, trend LFTs and temp curve.
Assessment / Plan
Assessment / Plan
Evan Muniz is a 73 yo gentleman with a past medical history of Cutaneous T-cell Lymphoma (2014), hypertension, hyperlipidemia NIDDM, GERD, hypothyroidism who presented to the emergency department on recommendations from outpatient ID physician
for intermitted fever spikes since October with a present fever of 104.1F, Nausea, rigors
##Ascending Cholangitis secondary to choledocholithiasis
#Transaminitis #Leukocytosis
#Cholelithiasis
- CT Abd pelvis demonstrated 'intrahepatic and severe extrahepatic biliary ductal dilatation (CBD 17 mm), 2 obstructing calculi in the distal CBD each measuring approximately 5 mm.'
- s/p stat ERCP w/ biliary sphincterotomy, balloon extraction of 3 stones, pus, debris.
- Went for cholecystectomy this AM. Will likely downgrade to med/surg in the afternoon
- WBCs downtrending, will continue to monitor
- transaminase downtrending, will continue to monitor
- Continue on IV Unasyn Q6 (day 2)
#THALIA v. CKD
- Beef Ribber on admission was 1.5 (baseline 1.1/1.2)
- LR IVF 80cc/hr
- continue holding Chlorthalidone/Ramipril
#NIDDM
- A1c is 6.3%
- Has been NPO thus far
- LDISS ordered w/ POC glucose checks
#Cutaneous T-Cell Lymphoma
- Follows with [facility], PO chemo on Actimmune, Bexarotene
- Will observe for Neutropenia
#HTN - continue holding blood pressure medication this AM as patient was NPO & BP agents all act on the kidneys.
#HLD - C/w home ezetimibe, fenofibrate, icosapent ethyl
#Hypothyroidism - c/w home synthroid
#BL Non-obstructing Renal Calculi
#History of Nephrolithiasis s/p stenting
#Meningioma s/p craniotomy (2012)
#Dispo- Med/Surg
#DVT PPx- Lovenox 40 SC
#Diet: advance per surgical team
#Code: Full Code
Anticipated Discharge: 24 - 48 hours
Subjective/Interval History
-
Seen in the morning. He slept well but did notice some sweating. He did not have rigors or shivering, but felt 'cold'. He denies any abdominal pain, nausea, or vomiting. He said that he passed one bowel movement yesterday which was soft, pale, and
floating. There was no blood in the stool.
Objective Data
-
Labs:
Laboratory Results
01/19/24
04:25
WBC 12.8 H
Hgb 11.8 L
Hct 34.7 L
Plt Count 180 D
PT 15.9 H
INR 1.29
APTT 43.7 H
Sodium 141
Potassium 3.8
Chloride 101
Carbon Dioxide 26
BUN 31 H
Creatinine 1.3
Glucose 120 H
Calcium 8.8
Total Bilirubin 6.4 H
AST 141 H
ALT 124 H
Alkaline Phosphatase 54
Vital Signs:
Vital Signs
Temp Pulse Resp BP Pulse Ox
97.6 F 62 14 110/78 93
01/19/24 08:53 01/19/24 09:00 01/19/24 09:00 01/19/24 09:00 01/19/24 09:00
I&O
01/18/24 01/19/24 01/20/24
06:59 06:59 06:59
Intake Total 1170 / 1250 240 / 240
Output Total 1250 / 1250 250 / 250
Balance -80 / 0 -10 / -10
Review of Systems
-
History Source: Patient
All other systems: Reviewed and negative
Constitutional: Reports Night Sweats
EENT: Reports No Symptoms Reported
Respiratory: Reports No Symptoms
Cardiac: Reports No Symptoms
Abdomen/GI: Reports No Symptoms; Denies Abdominal Pain, Nausea, Vomiting, Diarrhea, Bloody Stools or Black Stools
Breast: Reports N/A
Genitourinary: Reports No Symptoms
Musculoskeletal: Reports No Symptoms
Skin: Reports No Symptoms
Neuro: Reports No Symptoms
Endocrine: Reports No Symptoms
Hematologic / Lymphatic: Reports No Symptoms
Allergy / Immunology: Reports No Symptoms
Physical Exam
-
General: Well Developed, Well Nourished, No Apparent Distress, Comfortable and Obese
HEENT: Normocephalic, Atraumatic, Moist Mucous Membranes, Anicteric, [place] Conjunctivae and PERRLA
Respiratory: Clear to Auscultation
Cardiac: Regular Rhythm and S1/S2
Breast: N/A
GI: Soft, Nontender, Nondistended and Normal Bowel Sounds (Hypoactive Bowel Sounds)
Rectal: Deferred by Provider
Genito-urinary: No Costovertebral Tender
Musculoskeletal: No Clubbing, No Cyanosis and No Edema
Skin: Negative Jaundice
Neuro: Awake, Alert, Oriented, No Motor Deficits and No Sensory Deficits
Psych: Calm
--- NOTE | 2024-01-19 11:03 | CON.GS ---
Addendum entered and electronically signed by Ye Newman MD 01/19/24 11:29:
Patient is a 73 yo M with a PMH of cutaneous t-cell lymphoma (tx at [facility]), obesity, SHYAM, HTN, HLD, hypothyroidism, NIDDM, nephrolithiasis, BPH, s/p RIGHT frontal meningioma resection in 2012, and s/p open LEFT inguinal hernia repair who presented
to with recurrent fevers and bloating. Workup in the ED was notable for a significantly elevated bilirubin and LFTs as well as a CT scan which demonstrated a dilated CBD and distal stones. He underwent an ERCP with stone removal 01/18/2024.
General surgery consulted for cholecystectomy and preventing future episodes of cholecystitis or choledocholithiasis. Denies any prior history of abdominal pain or discomfort. Upon further prompting he does report some bloating type sensation. No
nausea or vomiting. He reports pale stools and tea colored urine, he denies noting any jaundice. Currently states that he is pain-free and doing well.
Of note, regarding his cutaneous T-cell lymphoma he receives treatment at [facility]. He is currently on bexarotene daily. His last dose was greater than 24 hours ago. He receives phototherapy to improve his WBCs and ability to fight an infection.
His last treatment was on 01/15. He reports that he receives these monthly.
Gen: NAD
Abd: obese, soft, NT/ND, non-peritoneal
Patient is a 73 yo M p/w choledocholithiasis and cholangitis.
He is recovering well with no further fevers and denies any abdominal pain. Natural history and pathophysiology of biliary stone disease was briefly discussed. The role of cholecystectomy in preventing future episodes of cholecystitis and
choledocholithiasis was reviewed. Options for management including medical management at this time with outpatient follow-up and cholecystectomy versus proceeding with cholecystectomy during this admission were considered and discussed. Pros and
cons of both procedures was discussed. Currently he has been off his immunotherapy for 24 hours. He is also recently had plasmapheresis. Infectious standpoint appears as though he is relatively bilateral optimized.
Plan for laparoscopic cholecystectomy with possible cholangiogram. The procedure itself, as well as the risks, benefits, and alternatives was discussed. Specifically, we discussed the risks of bleeding, infection, and injury to surrounding
structures (bowel, bile ducts), CBD injury, need for open procedure. We discussed specifically that he is at increased risk for infectious complications and poor wound healing. The proposed procedure recovery was discussed. All questions answered.
Consent signed.
Of note, will attempt to reach out to Oncology here at as well as his Derm oncologist at [facility].
-- Laparoscopic cholecystectomy with possible IOC
-- NPO, IVF
-- Abx: Zosyn
Original Note:
Medical History
-
Chief Complaint: abdominal pain
History of Present Illness:
Mr. Muniz is a 73 yo male with a h/o cutaneous t-cell lymphoma tx at [facility] currently with phototherapy (LD 01/15) and bexarotene (LD ?01/16), hospitalized in October for ecoli bacteremia though to be due to a wound infection with reported intermittent
fevers since that time, NIDDM, meningioma resection and left inguinal hernia repair who presented through the ED yesterday with reported fever of 104 at home. He had noted leukocytosis and elevated LFT's and CT imaging done in work up with noted
choledocholithiasis. He underwent urgent ERCP with GI for removal of stones with sphincterotomy with purulence noted in CBD during the procedure. He is currently recovering in ICU. He denies pain, nausea or vomiting. He has had no further fevers.
Past Medical History
Past Medical History: Cancer (cutaneous t-cell lymphoma), GERD, HTN, Hypercholesterolemia, Hypothyroidism, NIDDM and Other (renal calculi, SHYAM, BPH)
Past Surgical History: Brain (right frontal meningioma resection in 2012), Hernia Repair (left inguinal 1989), Orthopedic (L TKR) and Urological (ureteroscopy for nephrolithiasis)
Social History
Tobacco: Non-Smoker
Alcohol: None
Drug: None
Personal:
Living: With Family
Employment: Retired
Family History
Family History: Other (2 siblings with gallstones)
Allergies / Home Medications
Allergy/AdvReac Type Severity Reaction Status Date / Time
azithromycin Allergy Full-body Verified 01/18/24 21:01
swelling/skin
rash
pollen extracts Allergy Hayfever, Verified 01/18/24 10:24
rosefever
Grzifvo-CQQ-[id number] Reductase AdvReac 'Cannot Verified 01/18/24 21:01
Inhibitor tolerate'
tamsulosin [From Flomax] AdvReac Dizziness Verified 01/18/24 21:01
�Medication �Instructions �Recorded �Confirmed �Type
levothyroxine 100 mcg tablet 100 mcg PO DAILY@0600 Thyroid 09/01/15 01/18/24 History
acetaminophen 500 mg tablet 1,000 mg PO BID@12,2300 Pain 11/18/15 01/18/24 History
(Tylenol Extra Strength)
ezetimibe 10 mg tablet 10 mg PO QPM High cholesterol 09/13/20 01/18/24 History
aspirin 81 mg capsule 81 mg PO DAILY Blood clot 04/14/22 01/18/24 History
prevention/tx
bisacodyl 5 mg tablet,delayed 10 mg PO DAILY@2300 Constipation 04/14/22 01/18/24 History
release (Dulcolax (bisacodyl))
ramipril 10 mg capsule 10 mg PO DAILY Blood pressure 04/14/22 01/18/24 History
triamcinolone acetonide 0.1 % 1 applic topical BID hands 04/14/22 01/18/24 History
topical cream
bexarotene 75 mg capsule 75 mg PO QPM Cancer 10/26/23 01/18/24 History
chlorthalidone 50 mg tablet 50 mg PO DAILY Blood Pressure 10/26/23 01/18/24 History
coenzyme Q10 100 mg capsule 100 mg PO QPM Supplement 10/26/23 01/18/24 History
(CoQ-10)
docusate sodium 50 mg capsule 100 mg PO DAILY@2300 Constipation 10/26/23 01/18/24 History
fenofibrate 160 mg tablet 320 mg PO QPM High Cholesterol 10/26/23 01/18/24 History
fenofibrate 40 mg tablet 40 mg PO QPM High Cholesterol 10/26/23 01/18/24 History
ibuprofen 600 mg tablet 600 mg PO DAILY Pain 10/26/23 01/18/24 History
icosapent ethyl 1 gram capsule 2 g PO BID@08,18 High Cholesterol 10/26/23 01/18/24 History
interferon gamma-1b (Actimmune) 66 mcg SC MOWEFR@1800 Cancer 10/26/23 01/18/24 History
magnesium glycinate 2 tab PO DAILY@1200 Electrolyte 10/26/23 01/18/24 History
Repletion
pantoprazole 40 mg tablet,delayed 40 mg PO DAILY Gastrointestinal 10/26/23 01/18/24 History
release Issue
therapeutic multivitamin 1 tab PO DAILY Supplement 10/26/23 01/18/24 History
ketoconazole 2 % topical cream 1 applic topical DAILYPRN PRN 01/18/24 01/18/24 History
fungal foot infection
triamcinolone acetonide 0.1 % 1 applic topical DAILY feet 01/18/24 01/18/24 History
topical cream
Review of Systems
-
History Source: Patient
All other systems: Negative unless noted
A 10 point review of systems was completed, and was negative except as per HPI.
Physical Exam
Vital Signs
Temp Pulse Resp BP Pulse Ox
97.6 F 62 14 110/78 93
01/19/24 08:53 01/19/24 09:00 01/19/24 09:00 01/19/24 09:00 01/19/24 09:00
01/18/24 01/19/24 01/20/24
06:59 06:59 06:59
Actual Weight 115.5 kg
Body Mass Index (BMI) 36.5
Lab Results
01/19/24 04:25
01/19/24 04:25
WBC 12.8 10^3/uL (4.8-10.8) H 01/19/24 04:25
Hgb 11.8 g/dL (13.0-18.0) L 01/19/24 04:25
Hct 34.7 % (39.0-52.0) L 01/19/24 04:25
Plt Count 180 10^3/uL (130-400) D 01/19/24 04:25
Abs Immat Gran (auto) 0.1 10^3/uL (0-0.05) H 01/19/24 04:25
Neutrophils % 90.5 % (42.2-75.2) H 01/19/24 04:25
Physical Exam
General: Well Developed and Well Nourished
HEENT: Moist Mucous Membranes
Respiratory: Non Labored Respirations
GI: Soft, Non Tender and Non Distended
Skin: Warm and Dry
Neuro: Awake, Alert and AO x 3
Psych: Calm
Data Reviewed
-
CT Scan: Image Personally Visualized and interpreted, Report Reviewed by me, Discussed with Physician and Discussed with Patient
Labs: Labs Reviewed by me, Discussed with Physician and Discussed with Patient
Old Records: Reviewed
Assessment / Plan
-
Mr. Muniz is a 73 yo male with a h/o cutaneous t-cell lymphoma tx at [facility] currently with phototherapy (LD 01/15) and bexarotene (LD ?01/16), hospitalized in October for ecoli bacteremia though to be due to a wound infection with reported intermittent
fevers since that time, NIDDM, meningioma resection and left inguinal hernia repair who presented through the ED yesterday with reported fever of [address] imaging demonstrating choledocholithiasis on admission with elevated WBC's and LFT's. Now PPD #1 ERCP with purulence noted consistent with cholangitis. Preliminary blood cx positive for GNB x1 thus far. Leukocytosis improved, but LFT's remain
elevated. Lipase WNL. AFebrile. Hypotension present on arrival is now resolved.
Patient will need laparoscopic cholecystectomy to prevent recurrence, low suspicion for ACC on imaging.
--Keep NPO
--Plan Lap evon later today
--ABX as per ID
--Medical management as per primary team
--- NOTE | 2024-01-19 11:03 | PTCARENOTE ---
~1030 pt to PACU holding area.
--- NOTE | 2024-01-19 11:18 | W.SUR.PREOP ---
Pre-Operative Surgical Note
-
I have examined this patient prior to the performance of the scheduled procedure.
The patient's condition is unchanged from the time of the current History and
Physical and the patient is able to undergo the scheduled procedure.
[2024-01-19] MEDS: TYLENOL PO (12:31)
--- NOTE | 2024-01-19 12:40 | CM ---
CM attempted bedside meeting for assessment
Off unit in OR for lap evon
CM will follow for dc planning
--- NOTE | 2024-01-19 14:13 | W.IMMPOSTOP ---
Addendum entered and electronically signed by Ye Newman MD 01/19/24 16:48:
Dic#[id number]
Original Note:
Surgical Immed Post Op Note
-
Primary Surgeon: Trent
Assisting Surgeon: URI Esteban
Pre-op Diagnosis: Choledocholithiasis
Post-op Diagnosis: Choledocholithiasis
Procedure Performed: Laparoscopic cholecystectomy with IOC
Anesthesia Type: General
Specimen / Cultures:
1. Gallbladder
Estimated Blood Loss: 7 cc
Complications: None
Operative Findings:
1. Severe fatty liver disease, mild wall thickening
2. Critical view, inferior 1/2 of GB off hepatic plate
3. IOC with possible filling defect in cystic with disappeared with flushing, unable to fill hepatic ducts due to CBD dilation
4. Artery clips, duct stapler
--- NOTE | 2024-01-19 16:07 | CHAP ---
Met with , Carin, along with her family and friend in the waiting area, while Trino was in surgery. Emotional and spiritual support provided during that stressful time. We prayed together, and a prayer blanket was offered. Assurance of our
on-going availability was given.
[2024-01-19 16:09] LABS: Glucose - Point of Care 147 mg/dl (70-99)
--- NOTE | 2024-01-19 16:30 | PTCARENOTE ---
~1545 rec'd pt from PACU, EKG done as per orders. at bedside, updated. Pt denies any pain, states he just 'feels loopy'
[2024-01-19] MEDS: ZETIA 10 MG PO (17:54)
[2024-01-19] MEDS: LOVENOX 40 MG SC (17:54)
[2024-01-19] MEDS: NON-FORMULARY ITEM 40 MG PO (17:59)
[2024-01-19] MEDS: NON-FORMULARY ITEM 2 UNIT PO (17:59)
[2024-01-19] MEDS: NON-FORMULARY ITEM 75 MG PO (18:00)
[2024-01-19] MEDS: NON-FORMULARY ITEM 2 GRAMS PO (18:00)
--- NOTE | 2024-01-19 20:00 | PTCARENOTE ---
Received patient at 1900. Pt. currently awake, alert, and oriented. Denies pain/discomfort. Assisted to recliner chair. Afebrile. Heart rhythm sinus. Blood pressure normotensive. PO diet ordered, pt. has good appetite. Voiding in urinal without
issue. Skin as documented, Discussed plan of care. Vital signs stable at this time.
[2024-01-19] MEDS: TYLENOL 1000 MG PO (22:00)
[2024-01-20] VITALS (14 sets, daily range): BP systolic 126–159; BP diastolic 76–111; BMI 36.6; BMI 37.3
--- NOTE | 2024-01-20 | PTCARENOTE ---
Pt. assessment unchanged. Pt. with no GI symptoms. Tolerating clear liquid diet without complaints of nausea. Appears. Comfortable. Vital signs stable at this time.
[2024-01-20] MEDS: UNASYN IV ×4 (04:11→22:12)
--- NOTE | 2024-01-20 04:30 | PTCARENOTE ---
Pt. assessment remains unchanged. AM labs drawn. Vital signs stable at this time.
[2024-01-20 04:40] LABS: % Immature Granulocytes 0.4 % (0-0.5); % Lymphocytes 4.8 % (20.5-51.1); % Monocytes 7.4 % (1.7-9.3); % Neutrophils 87.4 % (42.2-75.2); Absolute Lymphocytes 0.5 10^3/uL (1.2-3.4); Absolute Monocytes 0.7 10^3/uL (0.1-0.6); Absolute Neutrophils 8.1 10^3/uL (1.4-6.5); Hemoglobin 12.8 g/dL (13.0-18.0); Mean Corp Hgb Conc. 33.7 g/dL (33.0-37.0); Mean Corpuscular Volume 89.2 fL (80.0-94.0); Mean Platelet Volume 9.8 fL (7.4-10.4); Nucleated Red Blood Cells % 0 % (-); Platelet Count 196 10^3/uL (130-400); Red Blood Cell Count 4.26 10^6/uL (4.70-6.10); White Blood Cell Count 9.3 10^3/uL (4.8-10.8)
[2024-01-20 05:05] LABS: ALT (SGPT) 136 U/L (0-50); AST (SGOT) 118 U/L (17-59); Albumin 3.4 g/dl (3.5-5.0); Alkaline Phosphatase 66 U/L (38-126); Blood Urea Nitrogen 36 mg/dl (9-20); Calcium 8.9 mg/dl (8.4-10.2); Carbon Dioxide 28 mmol/L (22-30); Chloride 100 mmol/L (98-107); Direct Bilirubin 2.1 mg/dl (0.0-0.4); Estimated Creatinine Clearance 64 ml/min; Glucose 111 mg/dl (70-99); Sodium 140 mmol/L (135-145); Total Bilirubin 2.6 mg/dl (0.2-1.3); Total Protein 6.1 g/dl (6.3-8.2); eGFR 58.01
--- NOTE | 2024-01-20 06:46 | W.PN.HOSP.TC ---
Addendum entered and electronically signed by Darryl Newton MD 01/20/24 13:58:
I saw and evaluated the patient. I reviewed the resident�s note and agree with findings and plan as documented in the resident�s note.
1. Acute cholangitis from choledocholithiasis
Obstructive jaundice
Cholelithiasis
Sepsis in Immunocompromised patient-POA
Enterobacter/E. coli bacteremia
-Patient had ongoing episodic fever and presented with new nausea/rigors found to be septic in ER
-Abdomen pelvis showing dilated CBD of 17 mm with 2 calcified stone in distal CBD
-Patient underwent emergent ERCP with biliary sphincterotomy with stone extraction, noted to having passed draining from ampulla
-General Surgery involved in care and patient underwent lap cholecystectomy
-Blood culture 1 set growing E. coli/Enterobacter species follow-up further susceptibility
-Patient currently on IV Unasyn and ID wants to monitor 1 more night.
-Diet has been advanced to low-sodium diet
2. THALIA on CKD stage IIIA
-Creatinine is improved, continue monitoring
3. Hypotension - resolved
-Was hypotensive, was monitored in ICU blood pressure improved.
-did not require pressors, continue monitoring
Transfer to med/surg
Possible discharge in morning tomorrow.
Original Note:
Today's Communication/Plan
-
C/w abx, IVF, diet advancement per surgical team. D/c LDISS & POC glucose checks as patient is PRE-diabetic, not NIDDM.
Assessment / Plan
Assessment / Plan
Evan Muniz is a 73 yo gentleman with a past medical history of Cutaneous T-cell Lymphoma (2015), hypertension, hyperlipidemia NIDDM, GERD, hypothyroidism who presented to the emergency department on recommendations from outpatient ID physician
for intermitted fever spikes since October with a present fever of 104.1F, Nausea, rigors
##Ascending Cholangitis secondary to choledocholithiasis
#Transaminitis #Leukocytosis
#Cholelithiasis
- CT Abd pelvis demonstrated 'intrahepatic and severe extrahepatic biliary ductal dilatation (CBD 17 mm), 2 obstructing calculi in the distal CBD each measuring approximately 5 mm.'
- s/p stat ERCP w/ biliary sphincterotomy, balloon extraction of 3 stones, pus, debris.
- s/p Cholecystectomy (uncomplicated, EBL <10cc)
- WBCs downtrending, will continue to monitor
- transaminase downtrending, will continue to monitor
- Tbili from 6.4 -2.6 this AM. Direct Bili 2.1
- Blood Cx (+) for E.Coli/Enterobacter
- Continue on IV Unasyn Q6 (day 3)
- Advance diet per surgical team & downgrade to Med/Surg
#THALIA v. CKD
- Golf Course Architect on admission was 1.5; now 1.3, near baseline of 1.1/1.2
- on 100c of Normosol/Plasmalyte
- continue holding Chlorthalidone/Ramipril
#Pre-Diabetes, well controlled
- NIDDM is incorrectly diagnosed in the chart
- A1c is 6.3%
- On clear liquid diet
- D/c POC glucose checks/LDISS
#Cutaneous T-Cell Lymphoma
- Follows with [facility], PO chemo on Actimmune, Bexarotene
- Will observe for Neutropenia
#HTN - restart home Ramipril & Chlorthalidone
#HLD - C/w home ezetimibe, fenofibrate, icosapent ethyl
#Hypothyroidism - c/w home synthroid
#Gross Fatty Changes to Liver - identified during laparoscopy; already on glucose/lipid control medication
#BL Non-obstructing Renal Calculi
#History of Nephrolithiasis s/p stenting
#Meningioma s/p craniotomy (2012)
#Dispo- Med/Surg
#DVT PPx- Lovenox 40 SC
#Diet: advance per surgical team
#Code: Full Code
Anticipated Discharge: 24 - 48 hours
Subjective/Interval History
-
Seen in the AM. Patient had no acute events overnight. The Cholecystectomy was uncomplicated, he is tolerating a clear liquid diet well and would like to move to a regular diet if possible. He is passing gas but has not had a bowel movement yet this
AM. He has no other acute complaints.
Objective Data
-
Labs:
Laboratory Results
01/20/24
04:26
WBC 9.3
Hgb 12.8 L
Hct 38.0 L
Plt Count 196
Sodium 140
Potassium 4.0
Chloride 100
Carbon Dioxide 28
BUN 36 H
Creatinine 1.3
Glucose 111 H
Calcium 8.9
Total Bilirubin 2.6 H D
AST 118 H
ALT 136 H
Alkaline Phosphatase 66
Vital Signs:
Vital Signs
Temp Pulse Resp BP Pulse Ox
97.5 F 51 13 144/89 95
01/20/24 04:30 01/20/24 06:11 01/20/24 06:11 01/20/24 06:11 01/20/24 04:30
I&O
01/18/24 01/19/24 01/20/24
06:59 06:59 06:59
Intake Total 1170 / 1250 1780 / 1780
Output Total 1250 / 1250 1650 / 1650
Balance -80 / 0 130 / 130
Review of Systems
-
History Source: Patient
All other systems: Reviewed and negative
Physical Exam
-
General: Well Developed, Well Nourished, No Apparent Distress, Comfortable and Obese
HEENT: Normocephalic, Atraumatic, Moist Mucous Membranes, Anicteric, [place] Conjunctivae and PERRLA
Respiratory: Crackles (Very fine inspiratory crackles in the right lower lung field)
Cardiac: Regular Rhythm and S1/S2
Breast: N/A
GI: Soft, Nontender, Nondistended and Normal Bowel Sounds
Rectal: Deferred by Provider
Genito-urinary: Deferred by me
Musculoskeletal: No Clubbing, No Cyanosis and No Edema
Neuro: Awake, Alert, Oriented, No Motor Deficits and No Sensory Deficits
Psych: Calm
[2024-01-20] MEDS: SYNTHROID PO (07:20)
--- NOTE | 2024-01-20 08:08 | PTCARENOTE ---
Rec'd pt at 0700. Pt AAOx3, sitting OOB in recliner chair. Monitor SBR/SR. Lungs CTA. +BS, abd round/soft/nt. 5 puncture sites ERICA with surgical adhesive intact. Vdg nito urine via urinal.
--- NOTE | 2024-01-20 08:19 | W.PN.ID1 ---
Date of Service
Date of Service: January 20, 2024
Today's Communication
- continue unasyn today, likely transition to augmentin tomorrow to complete 5 day post operative course; if planned for dc today could switch today, however I would suggest 1 day of observation
- no need for repeat blood cultures at this time for gram negative bacteremia
Assessment / Plan
Choledocolithiasis
Cholecystectomy 01/18
E coli and Enterobacter bacteremia
Fatty liver
- s/p ERCP with removal of CBD stones and expression of purulence
- s/p cholecystectomy
- continue unasyn today, likely transition to augmentin tomorrow to complete 5 day post operative course
- no need for repeat blood cultures at this time for gram negative bacteremia
- follow clinically
FUO
- note FUO began several months before the transaminitis, it may not yet be resolved
- FUO workup was already ordered outpatient and would recommend completing that workup at lab [facility] if fevers relapse
Chief Complaint
-: Fever and Other (choledocolithiasis)
Subjective / Review of Systems
no further fevers
bp stable
no complaints
Vital Signs / Physical Exam
Vital Signs
Vital Signs
Temp Pulse Resp BP Pulse Ox
97.5 F 51 13 144/89 95
01/20/24 04:30 01/20/24 06:11 01/20/24 06:11 01/20/24 06:11 01/20/24 04:30
Physical Exam
Constitutional: No Acute Distress
Cardiovascular: Regular Rate and S1/S2; Negative Murmur or Rub
Pulmonary: Clear and Symmetric; Negative Wheezes or Rales
Gastrointestinal: Soft, Non Tender, Non Distended and Normal Bowel Sounds
Skin: Warm, Dry and Other (5 port sites clean, dry, intact); Negative Rash or Jaundice
Objective Data
Lab Data
Lab Results
01/20/24 04:26
01/20/24 04:26
PT 15.9 Sec (11.4-14.6) H 01/19/24 04:25
INR 1.29 01/19/24 04:25
APTT 43.7 Sec (23.4-35.0) H 01/19/24 04:25
Estimated Creat Clear 64 ml/min 01/20/24 04:26
Lactic Acid 1.9 mmol/L (0.7-2.0) 01/18/24 12:05
Total Bilirubin 2.6 mg/dl (0.2-1.3) H D 01/20/24 04:26
AST 118 U/L (17-59) H 01/20/24 04:26
ALT 136 U/L (0-50) H 01/20/24 04:26
Alkaline Phosphatase 66 U/L (38-126) 01/20/24 04:26
Most recent labs reviewed.
OR cholangiogram: Stone in the cystic duct which appeared to flush through the common bile duct with repeated injection.
3. Severe distention of the common bile duct.
4. No opacification of the common hepatic duct.
Micro Results:
01/18/24 13:00 Urine Culture - Final
Urine No Significant Growth
01/18/24 12:25 Blood Culture - Preliminary
Blood/Venous No Growth in 24 hours- Final report to follow
01/18/24 12:05 Blood Culture - Preliminary
Blood/Venous Escherichia coli
Enterobacter species
Gram Stain - Preliminary
01/19/24 04:25 MRSA Screen - Pending
Nose
01/18/24 12:05 Influenza Types A & B (SELWYN) - Final
Nasal Swab Negative for Influenza A & B, NAAT
Negative results must be combined with clinical observations
and patient history.
Nucleic Acid Amplification test (NAAT)performed on the
[employer] platform.
Care Review
Plan reviewed with: Physician (Dr Newton - hannah[facility])
[2024-01-20] MEDS: SYNTHROID 100 MCG PO (08:24)
[2024-01-20] MEDS: PROTONIX IV 40 MG IV (08:26)
[2024-01-20] MEDS: NSS (PRESERVATIVE FREE) 10 ML IV (08:26)
[2024-01-20] MEDS: ARISTOCORT/TRIAMCINOLONE 0.1% CREAM 1 APPLIC TOPICAL ×3 (08:26→22:11)
--- NOTE | 2024-01-20 09:40 | W.PN.GI.CBS2 ---
Today's Communication / Plan
-
antibiotics, trend LFTs
GI signing off
Assessment / Plan
-
Mr Muniz is a 73 y.o male with past medical history of HTN, NIDDM, GERD, hypothyroidism, SHYAM, nephrolithiasis (s/p stenting), R frontal meningioma (s/p craniotomy 04/2013), and cutaneous T-cell lymphoma (f/w [place], on oral chemo) who presented to
the ED with fevers, elevated bili, CT findings c/w choledocho all c/w cholangitis.
#Cholangitis
#Elevated LFTs #Biliary Obstruction
#Choledocholithiasis #Cholelithiasis
#Hx of Cutaneous T Cell Lymphoma
ERCP 01/[address] Peralta- pus, debris, 3 stones and biliary sphincterotomy performed
CCY 01/18
Bili trending down
Recommendations:
- Antibiotics per ID
- Diet per surgery
- Trend LFTs
I reviewed with patient no need for enzyme replacement post CCY, he will still be able to absorb fat, bile will flow from his liver. Some patients have symptoms post CCY (ie: diarrhea) but most patients have no issues at all post CCY. We discussed
rarely patients can still have stones form in their ducts post-CCY as well.
GI signing off pls call with ?s
D/w primary team
Subjective
Subjective
Date of Service: January 20, 2024
feels well no complaints
s/p CCY yesterday
Objective
Data Reviewed
Laboratory Data:
Laboratory Results
01/20/24 04:26
01/20/24 04:26
Laboratory Results
PT 15.9 Sec (11.4-14.6) H 01/19/24 04:25
INR 1.29 01/19/24 04:25
APTT 43.7 Sec (23.4-35.0) H 01/19/24 04:25
Phosphorus 4.9 mg/dl (2.5-4.5) H 01/19/24 04:25
Magnesium 2.2 mg/dl (1.6-2.3) 01/19/24 04:25
Total Bilirubin 2.6 mg/dl (0.2-1.3) H D 01/20/24 04:26
AST 118 U/L (17-59) H 01/20/24 04:26
ALT 136 U/L (0-50) H 01/20/24 04:26
Alkaline Phosphatase 66 U/L (38-126) 01/20/24 04:26
Lipase Cancelled 01/18/24 17:04
Vital Signs and I&O:
Vital Signs
Temp Pulse Resp BP Pulse Ox
97.5 F 51 13 144/89 95
01/20/24 04:30 01/20/24 06:11 01/20/24 06:11 01/20/24 06:11 01/20/24 04:30
I&O
01/19/24 01/20/24 01/21/24
06:59 06:59 06:59
Intake Total 1170 / 1250 1780 / 1780
Output Total 1250 / 1250 1650 / 1650
Balance -80 / 0 130 / 130
Physical Exam
Physical Exam
HEENT: Anicteric
GI: Non Distended and Non Tender
[2024-01-20] MEDS: ALTACE 10 MG PO (10:10)
[2024-01-20] MEDS: NON-FORMULARY ITEM 2 GRAMS PO ×2 (10:10→17:50)
[2024-01-20] MEDS: ASPIR LOW (ENTERIC COATED) 81 MG PO (10:10)
--- NOTE | 2024-01-20 10:28 | W.PN.GS2 ---
Today's Communication / Plan
-
-- LFD, low Na
-- Pain control: Tylenol, Toradol, Oxycodone
-- Abx: Zosyn, treatment for sepsis and cholangitis
-- Unfamiliar with Bexarotene, would defer to Hospitalist or Oncology on need to hold post-operatively though no strong indication/recommendations based on literature review
-- DC instructions updated
-- Call with questions or concerns
Assessment / Plan
-
Patient is a 73 yo M p/w choledocholithiasis,
PPD#2 s/p ERCP with stone extraction and sphincterotomy
POD#1 s/p laparoscopic cholecystectomy with IOC
Recovering well. No postoperative concerns.
-- LFD, low Na
-- Pain control: Tylenol, Toradol, Oxycodone
-- HLIV
-- Abx: Zosyn, treatment for sepsis and cholangitis
-- Unfamiliar with Bexarotene, would defer to Hospitalist or Oncology on need to hold post-operatively though no strong indication/recommendations based on literature review
-- DC instructions updated
-- Call with questions or concerns
Subjective Data
-
Date of Service: January 20, 2024
No complaints or concerns. Pain well-controlled. No nausea or vomiting. No fevers.
Objective Data
-
Intake and Output
01/19/24 01/20/24 01/21/24
06:59 06:59 06:59
Intake Total 1170 / 1250 1780 / 1780
Output Total 1250 / 1250 1650 / 1650
Balance -80 / 0 130 / 130
Intake:
Oral fluids 100 / 100
IV fluids (Total) 880 / 960 1440 / 1440
Lr 1,000 ml @ 80 mls/hr IV . 880 / 960 1440 / 1440
[id number] [facility] Rx#:[id number]
IV piggybacks 290 / 290 240 / 240
Output:
Urine, Voided 1250 / 1250 1650 / 1650
Vital Signs
Temp Pulse Resp BP Pulse Ox
97.5 F 51 13 144/89 95
01/20/24 04:30 01/20/24 06:11 01/20/24 06:11 01/20/24 06:11 01/20/24 04:30
Lab Results
01/20/24 04:26
01/20/24 04:26
Calcium 8.9 mg/dl (8.4-10.2) 01/20/24 04:26
Phosphorus 4.9 mg/dl (2.5-4.5) H 01/19/24 04:25
Magnesium 2.2 mg/dl (1.6-2.3) 01/19/24 04:25
Total Bilirubin 2.6 mg/dl (0.2-1.3) H D 01/20/24 04:26
Direct Bilirubin 2.1 mg/dl (0.0-0.4) H 01/20/24 04:26
AST 118 U/L (17-59) H 01/20/24 04:26
ALT 136 U/L (0-50) H 01/20/24 04:26
Alkaline Phosphatase 66 U/L (38-126) 01/20/24 04:26
Total Protein 6.1 g/dl (6.3-8.2) L 01/20/24 04:26
Albumin 3.4 g/dl (3.5-5.0) L 01/20/24 04:26
Physical Exam
-
Gen: NAD
Abd: soft, minimal tenderness, ND, non-peritoneal, incisions c/d/i - no erythema or drainage, mild ecchymosis
--- NOTE | 2024-01-20 12:01 | CM ---
CM met with pt, spouse and dtr/Shagufta bedside
Pt and spouse reside in a split levl house with 0STE
5 steps up to kitchen area and then 10 step sup to sleeping level and full bath
Pt notes independence at baseline without any ADs, drives+
He has a SPC for use as needed
Denies financial insecurities
Rx plan through [facility]
PCP- Aaron Romo
Rx- [facility]
POD#1 lap evon
PPD#2 ERCP
ID following with recs for PO meds on dc
CM will continue to follow for dc planning
Discharge Disposition- home, watch for VN needs
[2024-01-20] MEDS: TYLENOL 1000 MG PO ×2 (12:19→23:19)
--- NOTE | 2024-01-20 13:02 | PTCARENOTE ---
Pt medsurg level, sitting OOB in chair, ambulatory in room. at bedside, updated. Pt freshened up in bathroom and gown changed.
--- NOTE | 2024-01-20 16:01 | CHAP ---
Trino was sleeping in the chair, with , Carin, sitting nearby. She is grateful for his good progress. Emotional and spiritual support provided.
--- NOTE | 2024-01-20 17:14 | TRANSFER ---
Pt transferred to [id number] via wheelchair, accompanying pt.
[2024-01-20] MEDS: ZETIA 10 MG PO (17:47)
[2024-01-20] MEDS: NON-FORMULARY ITEM 75 MG PO (17:48)
[2024-01-20] MEDS: NON-FORMULARY ITEM 320 UNIT PO (17:49)
[2024-01-20] MEDS: NON-FORMULARY ITEM 40 MG PO (17:49)
[2024-01-20] MEDS: LOVENOX 40 MG SC (18:04)
[2024-01-20] MEDS: COLACE 100 MG PO (23:19)
[2024-01-20] MEDS: DULCOLAX 10 MG PO (23:28)
[2024-01-21] MEDS: UNASYN IV ×2 (04:18→10:29)
[2024-01-21] MEDS: SYNTHROID 100 MCG PO (06:29)
[2024-01-21 06:52] LABS: % Basophils 0.4 % (0-2); % Eosinophils 1.2 % (0-6); % Immature Granulocytes 0.7 % (0-0.5); % Lymphocytes 11.6 % (20.5-51.1); % Monocytes 11.5 % (1.7-9.3); % Neutrophils 74.6 % (42.2-75.2); Absolute Eosinophils 0.1 10^3/uL (0-0.7); Absolute Lymphocytes 0.7 10^3/uL (1.2-3.4); Absolute Monocytes 0.7 10^3/uL (0.1-0.6); Absolute Neutrophils 4.2 10^3/uL (1.4-6.5); Hematocrit 39.5 % (39.0-52.0); Hemoglobin 13.3 g/dL (13.0-18.0); Mean Corp Hgb Conc. 33.7 g/dL (33.0-37.0); Mean Corpuscular Hgb 28.9 pg (27.0-31.0); Mean Corpuscular Volume 85.9 fL (80.0-94.0); Nucleated Red Blood Cells % 0 % (-); Platelet Count 212 10^3/uL (130-400); Red Cell Dist. Width 13.9 % (11.5-14.5); White Blood Cell Count 5.7 10^3/uL (4.8-10.8)
[2024-01-21 07:31] LABS: ALT (SGPT) 101 U/L (0-50); AST (SGOT) 58 U/L (17-59); Albumin 3.4 g/dl (3.5-5.0); Alkaline Phosphatase 69 U/L (38-126); Blood Urea Nitrogen 33 mg/dl (9-20); Calcium 9.2 mg/dl (8.4-10.2); Carbon Dioxide 31 mmol/L (22-30); Chloride 97 mmol/L (98-107); Estimated Creatinine Clearance 77 ml/min; Glucose 103 mg/dl (70-99); Potassium 3.6 mmol/L (3.5-5.1); Sodium 142 mmol/L (135-145); Total Bilirubin 1.8 mg/dl (0.2-1.3); Total Protein 6.1 g/dl (6.3-8.2); eGFR > 60.00
[2024-01-21 07:45] VITALS: BP 143/92
[2024-01-21] MEDS: ALTACE 10 MG PO (08:02)
[2024-01-21] MEDS: PROTONIX 40 MG PO (08:02)
[2024-01-21] MEDS: ASPIR LOW (ENTERIC COATED) 81 MG PO (08:02)
[2024-01-21] MEDS: ARISTOCORT/TRIAMCINOLONE 0.1% CREAM 1 APPLIC TOPICAL ×2 (08:02)
--- NOTE | 2024-01-21 08:53 | W.PN.GS2 ---
Addendum entered and electronically signed by David Hart MD 01/21/24 15:06:
I saw and examined the patient independently.
The resident's note was reviewed and I agree with the note, assessment and plan except where noted below.
Comment: 73-year-old male postoperative day 2 from laparoscopic cholecystectomy and cholangiogram. Doing well, expected postoperative course.
Discharge today
Original Note:
Today's Communication / Plan
-
Patient to get one last dose of IV Unasyn this morning then switched to PO abx. Okay to be discharged today on surgery's end.
Assessment / Plan
-
Assessment:
Patient is a 73 yo male with a history of cutaneous T-cell lymphoma who presented to the ED on 01/17 complaining of recent fevers and bloating. Patient underwent ERCP with stone removal on 01/17 and was followed up with cholecystectomy on 01/18.
PPD#3 ERCP with stone extraction and sphincterotomy
POD#2 Laparoscopic cholecystectomy with IOC
Plan:
AFVSS
--Patient tolerating Low fat/Low sodium diet, counseled to continue diet at home and consider seeing a mutual fund analyst if having difficulty finding foods to eat
--Pain/Anti-emetic control as needed
--Leukocytosis resolved (WBC 5.7 today), LFTs trending down
--Abx- one more dose of IV Unasyn today then to be discharged home with oral Augmentin. As per ID, Plan is for 5 days Abx post op
--Medical Management as per primary team including resuming of pre-op medications
--Patient okay to be discharged on surgery's end-> instructions updated
--No heavy lifting for 2-3 weeks
--Follow up with surgery team outpatient in 2-3 weeks
DVT prophylaxis: Lovenox
Subjective Data
-
Date of Service: January 21, 2024
Patient says that he has been feeling well since the procedure. He says he has minimal abdominal pain which only occurs when he coughs. Patient has been passing flatus and been having regular looser than normal bowel movements. He does not have any
nausea or vomiting and has been tolerating his diet. No complaints of any fevers or chills either.
Objective Data
-
Intake and Output
01/20/24 01/21/24 01/22/24
06:59 06:59 06:59
Intake Total 1780 / 1780 1500 / 1500
Output Total 1650 / 1650 850 / 850
Balance 130 / 130 650 / 650
Intake:
Oral fluids 100 / 100 960 / 960
IV fluids (Total) 1440 / 1440
Lr 1,000 ml @ 80 mls/hr IV . 1440 / 1440
[id number] [facility] Rx#:[id number]
IV piggybacks 240 / 240 540 / 540
Output:
Urine, Voided 1650 / 1650 850 / 850
Other:
Number of approximated MODERATE 2
amounts of urine
Vital Signs
Temp Pulse Resp BP Pulse Ox
98.8 F 70 19 126/84 95
01/20/24 23:12 01/20/24 23:12 01/20/24 23:12 01/20/24 23:12 01/20/24 23:12
Lab Results
01/21/24 06:08
01/21/24 06:08
Calcium 9.2 mg/dl (8.4-10.2) 01/21/24 06:08
Phosphorus 4.9 mg/dl (2.5-4.5) H 01/19/24 04:25
Magnesium 2.2 mg/dl (1.6-2.3) 01/19/24 04:25
Total Bilirubin 1.8 mg/dl (0.2-1.3) H 01/21/24 06:08
Direct Bilirubin 2.1 mg/dl (0.0-0.4) H 01/20/24 04:26
AST 58 U/L (17-59) 01/21/24 06:08
ALT 101 U/L (0-50) H 01/21/24 06:08
Alkaline Phosphatase 69 U/L (38-126) 01/21/24 06:08
Total Protein 6.1 g/dl (6.3-8.2) L 01/21/24 06:08
Albumin 3.4 g/dl (3.5-5.0) L 01/21/24 06:08
Physical Exam
-
Gen: NAD
Abd: soft, non-tender, mildly distended, incisions have no erythema or drainage, with mild ecchymosis around incisions
[2024-01-21] MEDS: NON-FORMULARY ITEM PO (09:05)
--- NOTE | 2024-01-21 10:05 | W.PN.HOSP.TC ---
Addendum entered and electronically signed by Lasha Chu MD, Resident 01/21/24 17:13:
Sepsis- resolved
Addendum entered and electronically signed by Burt Duque MD 01/21/24 12:46:
Total time spent on d/c = 38 min. This included today's physical exam, progress note, review of laboratory and diagnostic data, preparation of discharge documents and prescriptions, and discussions about the pt's hospital course and discharge plan
with the patient and other forensic medical examiner involved in the patient's care.
Addendum entered and electronically signed by Burt Duque MD 01/21/24 10:27:
I saw and evaluated the patient. I reviewed the resident�s note and agree with findings and plan as documented in the resident�s note.
Denies CP/SOB/abd pain.
RRR, normal S1/S2
CTAB
+BS/soft/NT/ND
Acute ascending cholangitis due to choledocholithiasis status post ERCP and laparoscopic cholecystectomy:
-currently on Unasyn, change abx to Augmentin on discharge
Original Note:
Today's Communication/Plan
-
OK to discharge today. Will send home on oral Augmentin x5 days.
Assessment / Plan
Assessment / Plan
Evan Muniz is a 73 yo gentleman with a past medical history of Cutaneous T-cell Lymphoma (2015), hypertension, hyperlipidemia NIDDM, GERD, hypothyroidism who presented to the emergency department on recommendations from outpatient ID physician
for intermitted fever spikes since October with a present fever of 104.1F, Nausea, rigors
##Ascending Cholangitis secondary to choledocholithiasis
#Transaminitis #Leukocytosis
#Cholelithiasis
- CT Abd pelvis demonstrated 'intrahepatic and severe extrahepatic biliary ductal dilatation (CBD 17 mm), 2 obstructing calculi in the distal CBD each measuring approximately 5 mm.'
- s/p stat ERCP w/ biliary sphincterotomy, balloon extraction of 3 stones, pus, debris.
- s/p Cholecystectomy (uncomplicated, EBL <10cc)
- WBCs downtrending, afebrile overnight.
- transaminase downtrending, nearly resolved
- Tbili from 6.4 -1.8 this AM
- Blood Cx (+) for E.Coli/Enterobacter
- Will get last dose of IV Unasyn Q6 (day 4); OK to d/c on PO Augmentin for 5 days pending sensitivities
#THALIA v. CKD
- Faculty Support Coordinator on admission was 1.5; now 1.1, at baseline of 1.1/1.2
- on 100c of Normosol/Plasmalyte
- continue holding Chlorthalidone/Ramipril
#Pre-Diabetes, well controlled
- NIDDM is incorrectly diagnosed in the chart
- A1c is 6.3%
- On clear liquid diet
- D/c POC glucose checks/LDISS
#Cutaneous T-Cell Lymphoma
- Follows with [facility], PO chemo on Actimmune, Bexarotene
- Will observe for Neutropenia
#HTN - restart home Ramipril & Chlorthalidone
#HLD - C/w home ezetimibe, fenofibrate, icosapent ethyl
#Hypothyroidism - c/w home synthroid
#Gross Fatty Changes to Liver - identified during laparoscopy; already on glucose/lipid control medication
#BL Non-obstructing Renal Calculi
#History of Nephrolithiasis s/p stenting
#Meningioma s/p craniotomy (2012)
#Dispo- Med/Surg
#DVT PPx- Lovenox 40 SC
#Diet: advance per surgical team
#Code: Full Code
Anticipated Discharge: Today
Subjective/Interval History
-
Seen in the AM. Has had an episode of diarrhea which is attributed to a more robust bowel regimen here compared to his home medications. No fevers or chills overnight. No other acute complaints.
Objective Data
-
Labs:
Laboratory Results
01/21/24
06:08
WBC 5.7
Hgb 13.3
Hct 39.5
Plt Count 212
Sodium 142
Potassium 3.6
Chloride 97 L
Carbon Dioxide 31 H
BUN 33 H
Creatinine 1.1
Glucose 103 H
Calcium 9.2
Total Bilirubin 1.8 H
AST 58
ALT 101 H
Alkaline Phosphatase 69
Vital Signs:
Vital Signs
Temp Pulse Resp BP Pulse Ox
98.1 F 65 16 143/92 95
01/21/24 07:45 01/21/24 08:02 01/21/24 07:45 01/21/24 08:02 01/21/24 08:59
I&O
01/20/24 01/21/24 01/22/24
06:59 06:59 06:59
Intake Total 1780 / 1780 1500 / 1500
Output Total 1650 / 1650 850 / 850
Balance 130 / 130 650 / 650
Review of Systems
-
History Source: Patient
Abdomen/GI: Reports Diarrhea; Denies Bloody Stools, Black Stools or Pain
Physical Exam
-
General: Well Developed, Well Nourished, No Apparent Distress and Comfortable
HEENT: Normocephalic, Atraumatic, Moist Mucous Membranes, Anicteric, [place] Conjunctivae and PERRLA
Respiratory: Clear to Auscultation
Cardiac: Regular Rhythm, S1/S2 and Bradycardic
Breast: N/A
GI: Soft, Nondistended, Normal Bowel Sounds and Tender (Around surgical sites)
Rectal: Deferred by Provider
Genito-urinary: No Costovertebral Tender
Musculoskeletal: No Clubbing, No Cyanosis and No Edema
Neuro: AO x 3, No Motor Deficits and No Sensory Deficits
Psych: Calm
[2024-01-21] MEDS: REFRESH EYE DROPS (PF) 1 DROPS OPHTH (10:29)
--- NOTE | 2024-01-21 10:57 | PTCARENOTE ---
MD made aware of order for accuchecks still in while note stated to discontinue them. MD instructed RN not to perform accuchecks anymore, aware that the order is still in.
--- NOTE | 2024-01-21 11:05 | CM ---
Reviewed the chart notes and spoke with the patient and his daughter at the bedside. IMM reviewed. The patient anticipates being discharged to home today with no anticipated needs. CM continues to be available to patient/family and is monitoring
medical plan for needs at discharge.
Plan: Discharge to home when medically stable.
[2024-01-21 11:20] VITALS: BP 150/90
--- NOTE | 2024-01-21 12:20 | W.DCSUMMARY ---
Addendum entered and electronically signed by Burt Duque MD 01/21/24 12:46:
Read, reviewed, and agree. See same day progress note for additional details.
Will change Augmentin to 875/125mg tabs
Original Note:
Discharge Summary
Discharge Data
Date of Admission: 01/18/24
Date of Discharge: 01/21/24
-
Pending Results: Yes
Additional Pending Results:
Final Blood Culture Reports
Hospital Course
Discharging Physician : Dr. Lasha Chu, Dr. Burt Duque
Disposition : Home
Primary care physician : Aaron Romo I.,
Principal Discharge diagnosis : Acute Ascending Cholangitis, Choledocholithiasis, Transaminitis, Leukocytosis, Cholelithiasis, Acute Renal Failure
Chronic Discharge diagnosis : Pre-Diabetes, Cutaneous T-Cell Lymphoma, Hypertension, Hyperlipidemia, Hypothyroidism
Hospital Course :
Evan Muniz presented to the [facility] on 01/17 for a fever spike of 104.1F in the setting of intermittent fevers since October and persistent nausea. He had been following with Dr. Medina for evaluation of FUO and called her office for the elevated
fever and was advised to come to the ED. While in the ED he had CT of the abdomen pelvis with IV contrast which showed severely dilated CBD measuring 17 mm and 2 obstructing distal common bile duct calculi and cholelithiasis. He was sent for
Emergent ERCP with removal of three stones, pus, and debris, as well as a sphincterotomy. He was started on IV Zosyn, which was switched to IV Unasyn after a positive blood culture showed growth of E.coli/Enterobacter. In addition, he had an
elevated creatinine level above baseline on admission (antihypertensives were held initially for this reason), which was monitored throughout his hospital stay.
On hospital day 2 the patient met with general surgery team and agreed to undergo laparoscopic cholecystectomy in the late morning. The surgery was uncomplicated and the patient was downgraded from ICU to med/surg. He remained on IV Unasyn for
hospital day 3 and 4, his WBC counts continued to improve, his diet was advanced, his creatinine improved to baseline, he remained afebrile, he was quickly passing stool without issue and was improving clinically in all regards.
On hospital day 4 the patient received his final dose of IV Unasyn. He was discharged home on his home medications with an additional prescription for 5 days of Augmentin. He has instructions to follow up again with his PCP and with ID
Carol.
Important imaging findings :
CT Abd/pelvis W Iv Cont:
Mild intrahepatic and severe extrahepatic biliary ductal dilatation (common bile duct measures up to 17 mm) secondary to 2 obstructing calculi in the distal common bile duct each measuring approximately 5 mm. The more inferior calculus is positioned
at or just above the level of the ampulla. Of note, there is a small periampullary duodenal diverticulum.
Procedure findings :
ERCP:
- Pus was seen coming from the major papilla consistent with cholangitis. This is managed with biliary sphincterotomy and balloon extraction of three stones, debris and pus.
- Choledocholithiasis was found resulting in diffuse, upstream dilation of the entire biliary tree. The cystic duct was not visualized.
- No additional filling defects were visualized during final repeat balloon occlusion cholangiogram.
- The patient was given Indomethacin suppository and IV Lactated Ringers to reduce the risk of post-ERCP pancreatitis.
RF Operative Cholangiogram:
IMPRESSION:
1. Laparoscopic cholecystectomy and intraoperative cholangiogram.
2. Stone in the cystic duct which appeared to flush through the common bile duct with repeated injection.
3. Severe distention of the common bile duct.
4. No opacification of the common hepatic duct.
Discharge Plan
-
Patient Disposition: Home (Routine Discharge)
Discharge Diagnosis/Procedures: Cholangitis, s/p ERCP, s/p laparoscopic cholecystectomy
Condition: Good
Diet: Low Fat and Low Sodium
Activity: No strenuous activity
Additional Activity: No heavy lifting (<20 lbs) for 3 weeks postoperatively
Driving Restrictions: No driving if too sore or taking narcotics
Bathing Restrictions: OK to Shower
Wound Care: Keep incisions clean and dry. Glue will flake off in 2 to 3 weeks. Stitches will dissolve. Call for any worsening redness or drainage. Use ice to the abdomen to reduce any bruising or swelling.
Activity Restrictions/Additional Instructions:
Call for fevers (>100.5), nausea or vomiting, worsening abdominal pain, yellowing of the eyes or skin, issues with incisions
Referrals:
Aaron Romo DO [Family Provider] -
Ye Newman MD [Active] - in two to four weeks
Prescriptions:
New
amoxicillin-pot clavulanate [Augmentin] 500-125 mg tablet
1 tab PO Q12H 5 Days Qty: 10 0RF
Rx Instructions:
Take one tablet, every 12 hours, for 5 days
Continued
levothyroxine 100 MCG tablet
100 mcg PO DAILY@0600
acetaminophen [Tylenol Extra Strength] 500 MG tablet
1,000 mg PO BID@12,2300
ezetimibe 10 MG tablet
10 mg PO QPM
triamcinolone acetonide 0.1 % Cream
1 applic TOPICAL BID
bisacodyl [Dulcolax (bisacodyl)] 5 mg Tablet,Delayed Release (Dr/Ec)
10 mg PO DAILY@2300
ramipril 10 mg Capsule
10 mg PO DAILY
aspirin 81 mg Capsule
81 mg PO DAILY
docusate sodium 50 mg Capsule
100 mg PO DAILY@2300
therapeutic multivitamin Tablet
1 tab PO DAILY
chlorthalidone 50 mg Tablet
50 mg PO DAILY
bexarotene 75 mg Capsule
75 mg PO QPM
ibuprofen 600 mg Tablet
600 mg PO DAILY
coenzyme Q10 [CoQ-10] 100 mg Capsule
100 mg PO QPM
fenofibrate 160 mg Tablet
320 mg PO QPM
Rx Instructions:
take with 40mg tablet for total of 360mg
fenofibrate 40 mg Tablet
40 mg PO QPM
Rx Instructions:
take with 2 tablets of 160mg for total of 360mg
icosapent ethyl 1 gram Capsule
2 g PO BID@08,18
magnesium glycinate 470 mg tablet
2 tab PO DAILY@1200
pantoprazole 40 mg tablet,delayed release (DR/EC)
40 mg PO DAILY
Actimmune 100 mcg/0.5 mL solution
66 mcg SC MOWEFR@1800
triamcinolone acetonide 0.1 % Cream
1 applic TOPICAL DAILY
ketoconazole 2 % Cream
1 applic TOPICAL DAILYPRN PRN (Reason: fungal foot infection)
Discharge Orders:
Discharge Patient (As Directed); Ordered 01/21/24
Ordered By: Lasha Chu
Discharge Date and Time
Print Language: WELSH
--- NOTE | 2024-01-21 13:01 | W.PN.ID1 ---
Date of Service
Date of Service: January 21, 2024
Today's Communication
- transition to augmentin tomorrow to complete 5 day post operative course
- outpatient follow up with me in about 1 month
Assessment / Plan
Choledocolithiasis
Cholecystectomy 01/18
E coli and Enterobacter bacteremia
Fatty liver
- s/p ERCP with removal of CBD stones and expression of purulence
- s/p cholecystectomy
- transition to augmentin tomorrow to complete 5 day post operative course
FUO
- note FUO began several months before the transaminitis, it may not yet be resolved
- FUO workup was already ordered outpatient and would recommend completing that workup at [facility] if fevers relapse
- outpatient follow up with me in about 1 month
Chief Complaint
-: Fever and Other (choledocolithiasis)
Subjective / Review of Systems
afebrile
bp stable
tiny dot of blood from port site on tshirt, no dehiscence, erythema, or tenderness
Vital Signs / Physical Exam
Vital Signs
Vital Signs
Temp Pulse Resp BP Pulse Ox
98.5 F 62 16 150/90 97
01/21/24 11:20 01/21/24 11:20 01/21/24 11:20 01/21/24 11:20 01/21/24 11:20
Physical Exam
Constitutional: No Acute Distress, Chronically Ill and Obese
Cardiovascular: Regular Rate and S1/S2; Negative Murmur or Rub
Pulmonary: Clear and Symmetric; Negative Wheezes or Rales
Gastrointestinal: Soft, Non Tender, Non Distended and Normal Bowel Sounds
Skin: Warm and Dry; Negative Rash or Jaundice
Wound: Other (tiny dot of blood from port site on tshirt, no dehiscence, erythema, or tenderness )
Objective Data
Lab Data
Lab Results
01/21/24 06:08
01/21/24 06:08
left shift has resolved
PT 15.9 Sec (11.4-14.6) H 01/19/24 04:25
INR 1.29 01/19/24 04:25
APTT 43.7 Sec (23.4-35.0) H 01/19/24 04:25
Estimated Creat Clear 77 ml/min 01/21/24 06:08
Lactic Acid 1.9 mmol/L (0.7-2.0) 01/18/24 12:05
Total Bilirubin 1.8 mg/dl (0.2-1.3) H 01/21/24 06:08
AST 58 U/L (17-59) 01/21/24 06:08
ALT 101 U/L (0-50) H 01/21/24 06:08
Alkaline Phosphatase 69 U/L (38-126) 01/21/24 06:08
Most recent labs reviewed.
Micro Results:
01/18/24 12:25 Blood Culture - Preliminary
Blood/Venous No Growth in 72 hours- Final report to follow
01/18/24 12:05 Blood Culture - Preliminary
Blood/Venous Escherichia coli
Enterobacter species
Gram Stain - Preliminary
01/19/24 04:25 MRSA Screen - Final
Nose No Methicillin Resistant Staphylococcus aureus isolated.
01/18/24 13:00 Urine Culture - Final
Urine No Significant Growth
01/18/24 12:05 Influenza Types A & B (SELWYN) - Final
Nasal Swab Negative for Influenza A & B, NAAT
Negative results must be combined with clinical observations
and patient history.
Nucleic Acid Amplification test (NAAT)performed on the
[employer] platform.
--- NOTE | 2024-01-21 16:51 | PN.CDI ---
CDI
- -
CDI:
Physician Documentation Request
Admit Date: 01/18/24 18:02
Dear Doctor Neto,
Please review the following and provide your response in the progress notes.
Clinical Indicators:
Pt admitted with Acute cholangitis from choledocholithiasis/Obstructive jaundice
Cholelithiasis S/P Laparoscopic Cholecystectomy
Documented in progress notes 01/18 & 01/19, ' Sepsis in Immunocompromised patient-POA
Documented in ED, ' Patient reports however he had a temperature less than 104.1 which was the highest it ever has been. He also had rigors. He called infectious disease and they recommended he come to the ER. ...'
Enterobacter/E. coli bacteremia Patient had ongoing episodic fever and presented with new nausea/rigors found to be in septic ER...'
ID on board and treated with Unasyn IV and changed to Augmentin at discharge
On admission WBC 16.6,HR 101, Respirations 26
Please clarify which of the following most accurately describes the status of the patient's infection:
Sepsis-Resolved
- Systemic manifestations of infection, with 2 or more SIRS criteria which include:
- Fever >100.4 degrees F or hypothermia < 96.8 degrees F
- Leukocytosis - WBC > 12,000 or leukopenia - WBC < 4,000 or > 10% bands
- Tachycardia > 90 beats per minute
- Tachypnea - RR > 20 breaths per minute or PaCO2 , 32mmHg
Source: Merck Manual 2013
Sepsis -Still being monitored/treated
Sepsis-ruled out
Other
Use of terms such as suspected, likely, concern for, or probable (associated with a specific diagnosis that is being evaluated, monitored, or treated as if it exists) are acceptable and can be coded in the inpatient setting, when documented at the
time of discharge.
Thank you,
Abi Lake RN
CDI Specialist
Alex Text
Please use your independent medical judgment in providing your response.
== END 2024-01-21 13:25 | disposition home or self-care (01) | DRG 854 ==
LOC: 2 NORTH 18:02
PROVIDERS: Clinical Nurse Specialist Family Health; Nurse Practitioner; ADMITTING PHYSICIAN Internal Medicine; ATTENDING PHYSICIAN Internal Medicine; CONSULT PHYSICIAN Student in an Organized Health Care Education/Training Program; CONSULT PHYSICIAN Surgery; EMERGENCY PHYSICIAN Emergency Medicine; FAMILY PHYSICIAN Internal Medicine; OTHER PHYSICIAN Internal Medicine Critical Care Medicine
PROC: 0FC98ZZ Extirpation of Matter from Common Bile Duct, Via Natural or Artificial Opening Endoscopic (ICD-10-PCS; 2024-01-18)
PROC: 0FT44ZZ Resection of Gallbladder, Percutaneous Endoscopic Approach (ICD-10-PCS; 2024-01-19)
DX: A41.51 Sepsis due to Escherichia coli [E. coli] (principal); C84.A0 Cutaneous T-cell lymphoma, unspecified, unspecified site; K80.71 Calculus of gallbladder and bile duct without cholecystitis with obstruction; D84.821 Immunodeficiency due to drugs; N17.9 Acute kidney failure, unspecified; K80.33 Calculus of bile duct with acute cholangitis with obstruction; D63.1 Anemia in chronic kidney disease; K76.0 Fatty (change of) liver, not elsewhere classified; E11.22 Type 2 diabetes mellitus with diabetic chronic kidney disease; E03.9 Hypothyroidism, unspecified; E66.09 Other obesity due to excess calories; Z68.37 Body mass index [BMI] 37.0-37.9, adult; I12.9 Hypertensive chronic kidney disease with stage 1 through stage 4 chronic kidney disease, or unspecified chronic kidney disease; N18.31 Chronic kidney disease, stage 3a; K83.8 Other specified diseases of biliary tract; I95.9 Hypotension, unspecified; E78.00 Pure hypercholesterolemia, unspecified; G47.33 Obstructive sleep apnea (adult) (pediatric); K21.9 Gastro-esophageal reflux disease without esophagitis; Z87.19 Personal history of other diseases of the digestive system; K57.10 Diverticulosis of small intestine without perforation or abscess without bleeding; K59.00 Constipation, unspecified; K66.0 Peritoneal adhesions (postprocedural) (postinfection); N40.1 Benign prostatic hyperplasia with lower urinary tract symptoms; R33.8 Other retention of urine; R74.01 Elevation of levels of liver transaminase levels; R00.1 Bradycardia, unspecified; Z79.60 Long term (current) use of unspecified immunomodulators and immunosuppressants; Z79.82 Long term (current) use of aspirin; Z79.890 Hormone replacement therapy; Z79.899 Other long term (current) drug therapy; Z87.440 Personal history of urinary (tract) infections; Z87.442 Personal history of urinary calculi; Z86.011 Personal history of benign neoplasm of the brain; Z85.828 Personal history of other malignant neoplasm of skin; Z86.14 Personal history of Methicillin resistant Staphylococcus aureus infection; Z86.19 Personal history of other infectious and parasitic diseases; Z88.1 Allergy status to other antibiotic agents; Z88.8 Allergy status to other drugs, medicaments and biological substances; Z96.652 Presence of left artificial knee joint; Z82.49 Family history of ischemic heart disease and other diseases of the circulatory system; Z83.3 Family history of diabetes mellitus
CPT/HCPCS: 88304; 71046; 74177; 74300; 74330; 76000; 80053; 80061; 81003; 81015; 82248; 82962; 83036; 83605; 83690; 83735; 84100; 85025; 85610; 85730; 87040; 87070; 87077; 87086; 87149; 87186; 87205; 87502; 87811; 93005; 96361; 96365; 99285; C1769; Q9967

== ENCOUNTER → 2024-02-01 12:27 | Outpatient (REF) | payer MEDICARE, BC, SELFPAY | LOC: PAVMRI 12:27 | PROVIDERS: ATTENDING PHYSICIAN Neurological Surgery | DX: D42.9 Neoplasm of uncertain behavior of meninges, unspecified (principal) | CPT/HCPCS: 70553; A9575 ==

== ENCOUNTER → 2024-07-02 13:15 | Outpatient (REF) | payer OTHER, SELFPAY ==
[2024-07-02 15:48] LABS: ALT (SGPT) 54 U/L (0-50); AST (SGOT) 43 U/L (17-59); Albumin 4.3 g/dl (3.5-5.0); Alkaline Phosphatase 51 U/L (38-126); Blood Urea Nitrogen 31 mg/dl (9-20); Carbon Dioxide 34 mmol/L (22-30); Chloride 98 mmol/L (98-107); Glucose 103 mg/dl (70-99); Potassium 4.2 mmol/L (3.5-5.1); Sodium 139 mmol/L (135-145); Total Bilirubin 0.9 mg/dl (0.2-1.3); Total Protein 6.8 g/dl (6.3-8.2); eGFR > 60.00
== END ==
LOC: REG 13:15
PROVIDERS: FAMILY PHYSICIAN Internal Medicine
DX: C84.09 Mycosis fungoides, extranodal and solid organ sites (principal)
CPT/HCPCS: 36415; 80053

== ENCOUNTER → 2024-07-15 13:23 | Outpatient (REF) | payer OTHER, SELFPAY | LOC: RAD 13:23 | PROVIDERS: ATTENDING PHYSICIAN Nurse Practitioner Family; FAMILY PHYSICIAN Internal Medicine | DX: R60.0 Localized edema (principal); M79.605 Pain in left leg; M79.604 Pain in right leg | CPT/HCPCS: 93970 ==

== ENCOUNTER 2024-08-01 01:29 | Inpatient (IN) | payer OTHER, SELFPAY ==
[2024-07-31 22:06] VITALS: BP 159/93
[2024-07-31 22:20] LABS: Urine Albumin Negative (Neg - Trace); Urine Bilirubin Negative (Negative); Urine Character Clear (Clear); Urine Color Yellow; Urine Glucose Negative (Negative); Urine Ketone Negative (Negative); Urine Leukocyte Negative (Negative); Urine Nitrite Negative (Negative); Urine Occult Blood Negative (Negative); Urine Urobilinogen 1+ (Neg - 1+)
[2024-07-31 22:37] LABS: COVID-19 Antigen Negative (Negative)
--- NOTE | 2024-07-31 22:54 | ED.GENMED ---
History of Present Illness
General
Chief Complaint: Fever
Source: patient and family
Exam Limitations: none
Time Seen by Provider: 07/31/24 22:27
Nursing documentation reviewed up to this point in time: agreed with
History of Present Illness
History of Present Illness:
Pleasant 74-year-old male presents to the emergency department with fever. Patient is being treated for cutaneous T-cell lymphoma at [facility]. He had 3 biopsies on Sunday. Tonight he developed fever. He states that his
primary care provider thought he had cellulitis so he came into the emergency department for evaluation. Patient recently finished a 10-day course of Keflex for cellulitis.
Past History
Past History
ED Past Medical History: Cancer (T- cell Lymphoma), GERD, HTN, Hypercholesterolemia, NIDDM, Hypothyroidism and Other (sleep apnea, BPH, urinary retention, Kidney stones, cutaneous T-cell lymphoma)
ED Past Surgical History: Brain (Craniotomy 05/02/2013 for removal of right frontal meningioma), Orthopedic (Left total knee replacement.), Urological (stent Kidney) and Other (hernia)
Social History
Tobacco: Non-smoker
Alcohol: None
Drug: None
Personal:
Living: with family
Family History
Family History: Other (Noncontributory)
Review of Systems
Review of Systems
Allergies reviewed?: Yes
All Other Systems: ROS reviewed and negative except as documented in HPI and ROS
Constitutional: Reports fever, fatigue and chills
EENT: Reports no symptoms
Respiratory: Reports no symptoms
Cardiac: Reports no symptoms
ABD/GI: Reports no symptoms
: Reports no symptoms
Musculoskeletal: Reports edema
Skin: Reports no symptoms
Neurological: Reports weakness
Endocrine: Reports no symptoms
Hematologic/Lymphatic: Reports no symptoms
Psychiatric: Reports anxiety
Phy Exam
General Physical Exam
General Presentation: moderate distress
General age: appears older than age
General Skin: warm and dry
General Habitus: elderly
General Mental: alert
General Hydration: appears well hydrated
Cardiovascular Exam
Cardiovascular Exam: tachycardia
Pulmonary Exam
Pulmonary Exam: lungs clear and no respiratory distress
Gastrointestinal Exam
Gastrointestinal Exam: normal bowel sounds, non tender, soft, no organomegaly and non distended
Neurological Exam
Neurological Exam: alert and oriented x3
Musculoskeletal Exam
Musculoskeletal Exam: edema and neuro vasc intact
Skin Exam
Skin Exam: erythema, redness and other (Biopsy sites on arms and legs)
Psychiatric Exam
Psychiatric Exam: anxious
Sepsis
Sepsis Screening
Sepsis Assessment: Sepsis
Sepsis Screen
Sepsis Screen: Sepsis
Date: 07/31/24
Time: 23:56
Course
Orders/Labs/Results
Orders:
Orders
07/31/24 21:49
EKG [Electrocardiogram (*1)] Urgent
Reason for Study: Chest Pain
EKG- Treatment ONCE
07/31/24 22:12
COVID-19 Antigen Urgent
Source: Nasal Swab
Influenza A+B Rapid Molecular Urgent
PAT Source: Nasal Swab
Specimen Description:
07/31/24 22:14
Urinalysis Reflex To Culture Urgent
Date Specimen was Collected: 07/31/24
Time Specimen was Collected: 21:55
07/31/24 22:53
Electrocardiogram (*1) Urgent
Reason for Study: Other
Other Reason for Exam: sepsis
EKG- Treatment ONCE
CR Chest - 2 Views Urgent
Comment:
Reason For Exam: fever
07/31/24 23:25
Complete Blood Count/With Diff Urgent
Lactic Acid Q4H
Comment: CANCEL 2nd LACTIC ACID IF 1st LACTIC ACID IS LESS THAN 2
Procalcitonin Urgent
PCT Algorithmm Indication: Sepsis
07/31/24 23:26
Comprehensive Metabolic Panel Urgent
Blood Culture Q30M
PAT Source: Blood/Venous
Specimen Description:
Blood Culture Q30M
PAT Source: Blood/Venous
Specimen Description:
07/31/24 23:30
Acetaminophen [Tylenol] 1,000 mg PO NOW STA
07/31/24 23:31
Acetaminophen [Tylenol] 1,000 mg .ROUTE .STK-MED ONE
08/01/24 03:00
Lactic Acid Q4H
Comment: CANCEL 2nd LACTIC ACID IF 1st LACTIC ACID IS LESS THAN 2
Abnormal Lab Results
07/31/24
23:25
WBC 4.6 L 10^3/uL
(4.8-10.8)
Absolute Lymphs (auto) 0.2 L 10^3/uL
(1.2-3.4)
Neutrophils % 84.3 H %
(42.2-75.2)
Lymphocytes % 4.1 L %
(20.5-51.1)
Monocytes % 10.8 H %
(1.7-9.3)
07/31/24 23:25
Vital Signs
Initial and Last Documented VS:
Initial Vital Signs
Temp Pulse Resp BP Pulse Ox
102.4 F H 127 26 159/93 98
07/31/24 22:06 07/31/24 22:06 07/31/24 22:06 07/31/24 22:06 07/31/24 22:06
Last Documented Vital Signs
Temp Pulse Resp BP Pulse Ox
102.4 F H 123 22 159/93 93
07/31/24 22:06 07/31/24 23:43 07/31/24 23:43 07/31/24 22:06 07/31/24 23:43
MDM/Problems Addressed
Differential Diagnosis Includes:
Cellulitis, fever of unknown origin, neutropenic fever
Chronic conditions affecting care:
Cutaneous T-cell lymphoma on chemotherapy causing immunocompromisation, diabetes
*Pulse Oximetry
Patient hypoxic: no
*Critical Care Note
Total Time (30-74mins, 75-104mins- exclusive of procedures): Not Applicable
ED Attending Note
-
Portions of this chart may have been created with voice recognition software.� Occasional wrong word or��sound alike� substitutions may have occurred due to the inherent limitations of voice recognition software.
Discharge Plan
Departure
Patient Disposition: Admit
Date of Disposition: 07/31/24
Time of Disposition: 23:56
Presentation/result/management discussed w/ accepting MD/DO: Hospitalist
Condition: Fair
Discharge Problem:
Cellulitis, Fever, Cutaneous T-cell lymphoma, Edema
Prescriptions:
No Action
levothyroxine 100 MCG tablet
100 mcg PO DAILY@0600
acetaminophen [Tylenol Extra Strength] 500 MG tablet
1,000 mg PO BID@2300
ezetimibe 10 MG tablet
10 mg PO QPM
triamcinolone acetonide 0.1 % Cream
1 applic TOPICAL BID
bisacodyl [Dulcolax (bisacodyl)] 5 mg Tablet,Delayed Release (Dr/Ec)
10 mg PO DAILY@2300
ramipril 10 mg Capsule
10 mg PO DAILY
aspirin 81 mg Capsule
81 mg PO DAILY
docusate sodium 50 mg Capsule
100 mg PO DAILY@2300
therapeutic multivitamin Tablet
1 tab PO DAILY
chlorthalidone 50 mg Tablet
50 mg PO DAILY
bexarotene 75 mg Capsule
75 mg PO QPM
ibuprofen 600 mg Tablet
600 mg PO DAILY
coenzyme Q10 [CoQ-10] 100 mg Capsule
100 mg PO QPM
fenofibrate 160 mg Tablet
320 mg PO QPM
Rx Instructions:
take with 40mg tablet for total of 360mg
fenofibrate 40 mg Tablet
40 mg PO QPM
Rx Instructions:
take with 2 tablets of 160mg for total of 360mg
icosapent ethyl 1 gram Capsule
2 g PO BID@08,18
magnesium glycinate 470 mg tablet
2 tab PO DAILY@1200
pantoprazole 40 mg tablet,delayed release (DR/EC)
40 mg PO DAILY
Actimmune 100 mcg/0.5 mL solution
66 mcg SC MOWEFR@1800
triamcinolone acetonide 0.1 % Cream
1 applic TOPICAL DAILY
ketoconazole 2 % Cream
1 applic TOPICAL DAILYPRN PRN (Reason: fungal foot infection)
amoxicillin-pot clavulanate 875-125 mg tablet
1 tab PO Q12H 5 Days Qty: 10 0RF
Rx Instructions:
Take one tablet, every 12 hours, for 5 days
Interventions
Interventions:
*Risk Screen - Suicide Last Done: 07/31/24 22:06
*General Assessment Last Done: 07/31/24 22:06
*Neglect/Abuse Screening Last Done: 07/31/24 22:06
*ED- Fall Risk Assessment Last Done: 07/31/24 22:06
*ED COVID-19 Vaccine History Last Done: 07/31/24 22:06
ED- Neurological Assessment Last Done: 07/31/24 23:43
ED-Skin Assessment Last Done: 07/31/24 23:42
Discharge Date and Time
Print Language: BURMESE
[2024-07-31] MEDS: TYLENOL 1000 MG PO (23:32)
[2024-07-31 23:42] LABS: % Basophils 0.4 % (0-2); % Immature Granulocytes 0.4 % (0-0.5); % Lymphocytes 4.1 % (20.5-51.1); % Monocytes 10.8 % (1.7-9.3); % Neutrophils 84.3 % (42.2-75.2); Absolute Lymphocytes 0.2 10^3/uL (1.2-3.4); Absolute Monocytes 0.5 10^3/uL (0.1-0.6); Absolute Neutrophils 3.9 10^3/uL (1.4-6.5); Hemoglobin 16.8 g/dL (13.0-18.0); Mean Corp Hgb Conc. 34.3 g/dL (33.0-37.0); Mean Corpuscular Hgb 30.6 pg (27.0-31.0); Mean Corpuscular Volume 89.3 fL (80.0-94.0); Mean Platelet Volume 9.3 fL (7.4-10.4); Nucleated Red Blood Cells % 0 % (-); Platelet Count 148 10^3/uL (130-400); Red Blood Cell Count 5.49 10^6/uL (4.70-6.10); Red Cell Dist. Width 13.2 % (11.5-14.5); White Blood Cell Count 4.6 10^3/uL (4.8-10.8)
[2024-07-31 23:57] LABS: Lactic Acid 1.3 mmol/L (0.7-2.0)
[2024-08-01] MEDS: ZOSYN 100 IV (00:04)
[2024-08-01 00:09] VITALS: BMI 38.0
[2024-08-01 00:16] LABS: Procalcitonin < 0.05 ng/ml (0.0-0.25)
[2024-08-01 00:21] LABS: ALT (SGPT) 46 U/L (0-50); AST (SGOT) 51 U/L (17-59); Albumin 4.5 g/dl (3.5-5.0); Alkaline Phosphatase 57 U/L (38-126); Blood Urea Nitrogen 37 mg/dl (9-20); Calcium 9.9 mg/dl (8.4-10.2); Carbon Dioxide 29 mmol/L (22-30); Chloride 98 mmol/L (98-107); Estimated Creatinine Clearance 70 ml/min; Glucose 127 mg/dl (70-99); Sodium 138 mmol/L (135-145); Total Protein 7.4 g/dl (6.3-8.2); eGFR > 60.00
--- NOTE | 2024-08-01 00:48 | HPS.HSE ---
Family Physician
-
Family Physician: Aaron Romo
Chief Complaint
-
Fever
History of Present Illness
This is a 74-year-old male who has a past medical history significant for cutaneous T-cell lymphoma since 2014 currently on oral chemotherapy and photopheresis, hypertension, hyperlipidemia, obesity, hypothyroid, SHYAM not on CPAP, BPH presenting to
the emergency department with 1 day history of fever.
Patient reported that he had redness and swelling of the left lower extremity about 2 weeks ago. He was seen by physician and diagnosed with cellulitis. He had an ultrasound that was negative for DVT on 311. He was placed on Keflex and finished a
course of antibiotics about 2 days ago. He said initially finished 1 week course and continued to have pain swelling and redness in his left lower extremity so a second course of 7 days was prescribed. He said that the swelling and pain had
improved but he still continues to have the redness. He attributed skin changes to his cutaneous T-cell lymphoma.
Patient had recent biopsy of lesions in his left shoulder and right leg with results pending. The biopsies were done 1 day ago. Patient reported that he started having a fever after the biopsy. He has baseline temperatures around 97 and anxiety
started climbing to 99 and today it went over 100 suicidal come to the emergency department. He denies any cough fevers or chills. He denies any abdominal pain nausea vomiting or diarrhea. He denies any dyspnea on exertion or shortness of breath.
He denies any known sick contacts.
In the emergency department he was febrile to 102.4, tachycardic to 120, blood pressure was 160/90 and he was satting 92% on room air. Chest x-ray shows no acute infiltrate. UA was negative. COVID test was negative, flu test was negative. CBC
shows a white count of 14.6 and otherwise unremarkable. Electrolytes BUN/creatinine were unchanged from prior and normal. LFTs were normal.
Medical History
Past Medical History
Past Medical History: Reports Other
Additional Past Medical History:
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
DM 2 diet-controlled
HTN
HLD
GERD
hypothyroidism
SHYAM
BPH,
obesity
[employer] meningioma s/p resection 2012 at [facility]
Past Surgical History: Reports Other
Additional Past Surgical History:
[employer] meningioma s/p resection 2012 at [facility]
Left lower abdominal hernia repair 1989
Left knee replacement 2011
Social History
Tobacco: Non-smoker
Alcohol: None
Drug: None
Personal:
Living: With Family ( Carin and Evan son at bedside)
Employment: Retired
Family History
Family History: Not pertinent and Other (Sister gallstones, mother COPD father asbestosis complications, history of pacemaker)
Allergies / Home Medications
Allergies reflects when Allergies were last updated in [facility].
Home Medications with original date entered in [facility]
Allergy/Medication List:
Allergies
Allergy/AdvReac Type Severity Reaction Status Date / Time
azithromycin Allergy Full-body Verified 07/31/24 22:09
swelling/skin
rash
pollen extracts Allergy Hayfever, Verified 07/31/24 22:09
rosefever
[id number] Reductase AdvReac 'Cannot Verified 07/31/24 22:09
Inhibitor tolerate'
tamsulosin [From Flomax] AdvReac Dizziness Verified 07/31/24 22:09
Home Medications
levothyroxine 100 mcg tablet 100 mcg PO DAILY@0600 Thyroid 09/01/15
acetaminophen 500 mg tablet (Tylenol Extra Strength) 1,000 mg PO BID@12,2300 Pain 11/18/15
ezetimibe 10 mg tablet 10 mg PO QPM High cholesterol 09/13/20
aspirin 81 mg capsule 81 mg PO DAILY Blood clot prevention/tx 04/14/22
bisacodyl 5 mg tablet,delayed release (Dulcolax (bisacodyl)) 10 mg PO DAILY@2300 Constipation 04/14/22
ramipril 10 mg capsule 10 mg PO DAILY Blood pressure 04/14/22
triamcinolone acetonide 0.1 % topical cream 1 applic topical BID hands 04/14/22
bexarotene 75 mg capsule 75 mg PO QPM Cancer 10/26/23
chlorthalidone 50 mg tablet 50 mg PO DAILY Blood Pressure 10/26/23
coenzyme Q10 100 mg capsule (CoQ-10) 100 mg PO QPM Supplement 10/26/23
docusate sodium 50 mg capsule 100 mg PO DAILY@2300 Constipation 10/26/23
fenofibrate 160 mg tablet 320 mg PO QPM High Cholesterol 10/26/23
fenofibrate 40 mg tablet 40 mg PO QPM High Cholesterol 10/26/23
ibuprofen 600 mg tablet 600 mg PO DAILY Pain 10/26/23
icosapent ethyl 1 gram capsule 2 g PO BID@08,18 High Cholesterol 10/26/23
interferon gamma-1b (Actimmune) 66 mcg SC MOWEFR@1800 Cancer 10/26/23
magnesium glycinate 2 tab PO DAILY@1200 Electrolyte Repletion 10/26/23
pantoprazole 40 mg tablet,delayed release 40 mg PO DAILY Gastrointestinal Issue 10/26/23
therapeutic multivitamin 1 tab PO DAILY Supplement 10/26/23
ketoconazole 2 % topical cream 1 applic topical DAILYPRN PRN fungal foot infection 01/18/24
triamcinolone acetonide 0.1 % topical cream 1 applic topical DAILY feet 01/18/24
amoxicillin 875 mg-potassium clavulanate 125 mg tablet 1 tab PO Q12H 5 days #10 tabs 01/21/24
Review of Systems
-
History Source: Patient
Constitutional: Reports Fever
EENT: Reports No Symptoms
Respiratory: Reports No Symptoms
Cardiac: Reports No Symptoms
Abdomen/GI: Reports No Symptoms
: Reports No Symptoms
Musculoskeletal: Reports No Symptoms
Skin: Reports No Symptoms
Neurological: Reports No Symptoms
Endocrine: Reports No Symptoms
Hematologic/Lymphatic: Reports No Symptoms
Psych: Reports No Symptoms
Physical Exam
Vital Signs
Vital Signs
Temp Pulse Resp BP Pulse Ox
102.4 F H 120 26 159/93 92
07/31/24 22:06 08/01/24 00:06 08/01/24 00:06 07/31/24 22:06 08/01/24 00:06
Physical Exam
General: Well Developed, Well Nourished, No Apparent Distress and Comfortable
HEENT: PERRLA
Respiratory: Clear
Cardiac: S1/S2 and Tachycardia
Breast: Deferred by me
GI: Soft, Non Tender and Normal Bowel Sounds
Rectal: Deferred by Provider
Genito-urinary: Clear Urine
Musculoskeletal: No Clubbing, No Cyanosis and Edema, Left Lower Extremity (1+)
Skin: Warm and Rash (left lower extremity edema with erythema, mild induration and TTP)
Neuro: AO x 3 and Nonfocal/grossly intact
Hematologic/Lymphatic: No Lymphadenopathy
Psych: Calm
Laboratory Results
-
07/31/24 23:25
07/31/24 23:26
Laboratory Results
Lactic Acid 1.3 mmol/L (0.7-2.0) 07/31/24 23:25
Total Bilirubin 1.0 mg/dl (0.2-1.3) 07/31/24 23:26
AST 51 U/L (17-59) 07/31/24 23:26
ALT 46 U/L (0-50) 07/31/24 23:26
Alkaline Phosphatase 57 U/L (38-126) 07/31/24 23:26
Data Reviewed
-
Diagnostic Radiology: Image Personally Visualized and interpreted
Medical Tests (Nuc Med, Echo, EKG etc): Image Personally Visualized and interpreted
Lab Data: Labs Reviewed by me
Old Records: Reviewed
Impression/Plan
-
IMPRESSION:
This is an 74-year-old with cutaneous T-cell lymphoma on photopheresis coming in with a fever to 102 �F. He has no oral focal infectious source except for erythema and edema in the left lower extremity that is consistent with cellulitis. Given
recent history he appears to have failure of outpatient antibiotics for his cellulitis. He is hemodynamically stable, but quite tachycardic likely secondary to the fever. Viral workup was negative. UA was negative. Chest x-ray is unconvincing
for an acute infiltrate. Mild hypoxia at rest but denies any cough wheezing shortness of breath dyspnea exertion or chest pain.
PLAN:
1. Fever -suspect cellulitis with failure of oral antibiotics. Systemic infection with febrile illness, failure of recent abx and cancer w/ chemo raises risk
- admit to med/surg
- blood cultures sent
- IV vancomycin for now
- d/c zosyn
- checking procalcitonin for respiratory infection
- LFTs normal, no abdominal pain (did not have abd pain when he had cholecystitis) so unlikely cholangtitis
2. HTN
- HD stable, continue ramipril and chlorthalidone per home therapy
- continue ezetimibe and febofibrate
3. SHYAM
- oxygen HS, no CPAP per patient
4. Hypothyroid
- continue levothyroxin 100
5. Tachycardia - Sinus tachy susp secondary to fever
- fever control
- gentle hydration x 1 L overnight
DVT PPX - lovenox sq
Code status - full code
[2024-08-01 02:06] VITALS: BP 145/86
[2024-08-01] MEDS: NSS 1000 IV (02:25)
[2024-08-01] MEDS: VANCOCIN 540 MG IV (02:25)
[2024-08-01 06:00] VITALS: BMI 37.1
[2024-08-01 06:29] LABS: Hematocrit 46.8 % (39.0-52.0); Mean Corp Hgb Conc. 34.2 g/dL (33.0-37.0); Mean Corpuscular Hgb 30.4 pg (27.0-31.0); Mean Platelet Volume 9.4 fL (7.4-10.4); Platelet Count 156 10^3/uL (130-400); Red Blood Cell Count 5.26 10^6/uL (4.70-6.10); Red Cell Dist. Width 13.2 % (11.5-14.5); White Blood Cell Count 4.6 10^3/uL (4.8-10.8)
[2024-08-01 06:53] LABS: Blood Urea Nitrogen 34 mg/dl (9-20); Calcium 8.8 mg/dl (8.4-10.2); Carbon Dioxide 27 mmol/L (22-30); Chloride 103 mmol/L (98-107); Estimated Creatinine Clearance 77 ml/min; Glucose 139 mg/dl (70-99); Potassium 3.9 mmol/L (3.5-5.1); Sodium 139 mmol/L (135-145); eGFR > 60.00
--- NOTE | 2024-08-01 08:35 | W.PN.HOSP.TC ---
Addendum entered and electronically signed by Ronnell Newton MD 08/01/24 15:23:
NAD
Scleral Anicteric
MMM
No JVD
CTABL
RRR, S1/S2
Soft, NT, ND, BS+
Warm, Dry
Left lower extremity with erythematous patchy, subcuticular bleeding that is nonblanchable/skin peeling
AAOx3
Calm
Sepsis secondary to soft tissue skin infection, nonpurulent
-Started on vancomycin
-ID evaluated started Ancef and discontinued vancomycin
-Follow-up blood cultures
Cutaneous T-cell lymphoma
-On chemo and Actimmune
-Followed by dermatology at [facility]
-Will need continued follow-up
-Recently had skin biopsy at [facility]
Hypertension
-Continue antihypertensives
Hyperlipidemia
-Continue Zetia and fenofibrate
SHYAM
-Not on CPAP
Hypothyroidism
-Continue levothyroxine
GERD
PPI
Original Note:
Today's Communication/Plan
-
Cefazolin per ID
Gentle fluids
Assessment / Plan
Assessment / Plan
This is a 74-year-old male who has a past medical history significant for cutaneous T-cell lymphoma since 2014 currently on oral chemotherapy and photopheresis, hypertension, hyperlipidemia, obesity, hypothyroid, SHYAM not on CPAP, BPH presenting to
the emergency department with 1 day history of fever. 2 weeks ago, he was seen by his physician and diagnosed with cellulitis, started on outpatient antibiotics, outpatient ultrasound was negative for DVT on 07/15. Pain and swelling started to
improve, however after antibiotics finished, pain and swelling worsened. Yesterday patient had multiple biopsies at [facility] for his cutaneous T-cell lymphoma after which he started to have a fever. He denies any cough, chills, abdominal pain, nausea,
vomiting, diarrhea, shortness of breath, chest pain. In the ED he was febrile at 102.4, tachycardic 120, blood pressure 160/90, satting 92% on room air. Chest x-ray clear, UA negative, COVID and flu negative. WBC 4.6. Other labs unremarkable.
#Sepsis secondary to cellulitis
-Febrile, tachy, tachypneic, cellulitis
-Chest x-ray clear, procalcitonin less than 0.05, UA negative, COVID flu negative
-Increased erythema, warmth, tenderness of left lower extremity consistent with cellulitis
-Given 1 dose of pip-tazo in ED and vancomycin
-DC pip-tazo, dc Vanco and cont with cefazolin per ID
-Blood cultures pending
-Fluids
-ID appreciated
#Cutaneous T cell lymphoma generalized rash on Targretin chemo and Actimmune
-Diffuse cutaneous rash
-cont interferon gamma-1b, bexarotene
-Dr. Taylor Zurita is his medical numerical control operator at [facility] managing his treatment
-Attempted to get in contact with Dr. Zurita and the team recommended the patient to contact them directly through his portal
-Topical corticosteroids for rash per pt regimen and ketoconazole for feet per pt home regimen
#HTN/HLD
-Cont ramipril and chlorthalidone
-Cont ezetimibe and fenofibrate
#SHYAM
-No cpap per pt
-Oxygen hs
#Hypothyroidism
-Cont Levoroxine 100
#Tachycardia
-likely secondary to infx
-Monitor
#GERD
-Pantoprazole
#Class II obesity
DVT lovenox
Full Code
Anticipated Discharge: 24 - 48 hours
Subjective/Interval History
-
Date of Service: August 01, 2024
Objective Data
-
Labs:
Laboratory Results
07/31/24 07/31/24 08/01/24
23:25 23:26 06:19
WBC 4.6 L 4.6 L
Hgb 16.8 16.0
Hct 49.0 46.8
Plt Count 148 156
Sodium 138 139
Potassium 4.0 3.9
Chloride 98 103
Carbon Dioxide 29 27
BUN 37 H 34 H
Creatinine 1.2 1.1
Glucose 127 H 139 H
Calcium 9.9 8.8
Total Bilirubin 1.0
AST 51
ALT 46
Alkaline Phosphatase 57
Vital Signs:
Vital Signs
Temp Pulse Resp BP Pulse Ox
100.2 F 110 26 145/86 98
08/01/24 02:06 08/01/24 02:06 08/01/24 00:06 08/01/24 02:06 08/01/24 02:06
I&O
07/31/24 08/01/24 08/02/24
06:59 06:59 06:59
Intake Total 1000 / 1000
Output Total 700 / 700
Balance 300 / 300
Review of Systems
-
History Source: Patient
EENT: Reports No Symptoms Reported
Respiratory: Reports No Symptoms
Abdomen/GI: Reports No Symptoms
Skin: Reports Other (Increased erythema and pain in left lower leg )
Neuro: Reports No Symptoms
Physical Exam
-
General: No Apparent Distress and Comfortable
HEENT: Normocephalic
Respiratory: Clear to Auscultation
Cardiac: Regular Rhythm and S1/S2
GI: Soft, Nontender, Nondistended and Normal Bowel Sounds
Skin: Rash (Diffuse rash consistent with his cutaneous T cell lymphoma, Left lower extremity increased erythema, warmth and tenderness with palpation )
Neuro: AO x 3
Psych: Calm
[2024-08-01 09:00] VITALS: BP 129/69
[2024-08-01] MEDS: ALTACE 10 MG PO (10:15)
[2024-08-01] MEDS: BACTROBAN 2% OINTMENT 1 APPLIC TOPICAL ×2 (10:15→20:00)
[2024-08-01] MEDS: Hygroton 50 MG PO (10:15)
[2024-08-01] MEDS: SYNTHROID 100 MCG PO (10:15)
[2024-08-01] MEDS: ASPIR LOW (ENTERIC COATED) 81 MG PO (10:15)
[2024-08-01] MEDS: THERAGRAN 1 TABLET PO (10:15)
[2024-08-01] MEDS: TRIAMCINOLONE ACETONIDE 0.1% CREAM 1 APPLIC TOPICAL ×2 (10:16)
--- NOTE | 2024-08-01 10:52 | PHA.VAN.IN ---
Assessment
- Assessment
Renal Function: Appears similar to baseline
Maximum Temperature: 102.4
Minimum Temperature: 99.8
AUC Dosing Plan
- Dosing Variables
Dosing Weight (kg): 120
Dosing CrCl (ml/min): 77
Vd coefficient (L/kg): 0.6
- Empiric Dosing
Initial / Loading Dose: vancomycin 2000 mg x 1 on 08/01
Maintenance Regimen: vancomycin 1250 mg q12h
Estimated AUC (mcg*h/mL): 534
Estimated Peak (mcg*h/mL): 31
Estimated Trough (mcg/ml): 15.1
Estimated Half Life (H): 10.1
- Monitoring
No levels ordered at this time: consider levels in next few days
Pharmacokinetics Vancomycin I
- -
Patient Age: 74
Patient Sex: Male
Vancomycin Day #: 1
Indication: Skin And Soft Tissue
Requesting Provider: Dr. Polk
Height / Weight:
Height 5 ft 10 in
Actual Weight 120 kg
IBW in k
Adjusted BW in k.8
Pertinent Past Medical History: T-cell lymphoma
- Vital Signs / Lab Results
Temp Pulse Resp BP Pulse Ox
99.8 F 89 18 129/69 96
08/01/24 09:00 08/01/24 09:00 08/01/24 09:00 08/01/24 09:00 08/01/24 09:00
Lab Results - Hematology
07/31/24 08/01/24
23:25 06:19
WBC 4.6 L 4.6 L
Lab Results - Chemistry
07/31/24 08/01/24
23:26 06:19
BUN 37 H 34 H
Creatinine 1.2 1.1
Estimated Creat Clear 70 77
Albumin 4.5
07/31/24
23:25
Lactic Acid 1.3
Lab Results - Urine
07/31/24
22:14
Urine Nitrite (Reflex) Negative
Leukocyte Esterase Rfl Negative
Microbiology Results
07/31/24 22:12 Influenza Types A & B (SELWYN) - Final
Nasal Swab Negative for Influenza A & B, NAAT
Negative results must be combined with clinical observations
and patient history.
Nucleic Acid Amplification test (NAAT)performed on the
[employer] platform.
--- NOTE | 2024-08-01 11:22 | CON.ID ---
Consultation
-
Date/Time Consultation Requested: 08/01/24 14:05
Date/Time Consultation Performed: 08/01/24 11:23
Requesting Provider: Dr Polk
Performing Provider: Dr Medina
Reason for Consultation: cellulitis, Cut T-cell Lymph, failed outpt tx
Chief Complaint / Past History
Chief Complaint
fever
History of Present Illness
Mr Muniz is a 74 year old male with history of cutaneous T-cell lymphoma since 2014 currently on oral chemotherapy and photopheresis, class II obesity who presented here last night for a 1 day history of fever. Of note he developed redness and
swelling of the L lower extremity 2 weeks ago, saw MD diagnosed with cellulitis, DVT screen negative, completed a course of keflex 500 mg PO BID x14 days, 2 days prior to arrival. Swelling and pain improved, redness continues which he attributes to
the lymphoma.
Then 1 day prior to arrival with a biopsy of a lesion on the L shoulder and right leg - results pending. Denies: chills, shortness of breath, abdominal pain, nausea, vomiting, diarrhea, sick contacts.
Note history of FUO 01/2024 found to be due to choledocholithiasis.
Since arrival here tmax 102.4 (unclear what route based on charting), bp overall stable, HR initially 110-120 now 80s, wbc 4.6 on arrival, hgb 16.8, plt 148, L shift was noted, na 138, cr 1.2, lactic acid 1.3, LFTs wnl, procalcitonin <0.05
(negative), ua no pyuria, covid ag negative, 07/31 CXR: atelectasis, blood cultures x2 done at the same time no growth to date, mrsa screen pending, influenza screen negative,
Past History
Additional Past Medical History:
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
DM 2 diet-controlled
HTN
HLD
GERD
hypothyroidism
SHYAM
BPH,
obesity
Additional Past Surgical History:
Port
[employer] meningioma s/p resection 2012 at [facility]
Left lower abdominal hernia repair 1989
Left knee replacement 2011
Allergy History:
azithromycin Allergy (Verified 07/31/24 22:09)
Full-body swelling/skin rash
pollen extracts Allergy (Verified 07/31/24 22:09)
Hayfever, rosefever
Rjlnsba-KEG-MiL Reductase Inhibitor Adverse Reaction (Verified 07/31/24 22:09)
'Cannot tolerate'
tamsulosin [From Flomax] Adverse Reaction (Verified 07/31/24 22:09)
Dizziness
Medications Reviewed: Yes
Social History
Tobacco: Non-Smoker
Alcohol: None
Drug: None
Family History
Family History: Not Pertinent
Review of Systems
Review of Systems
General: Fever
All systems: All other systems were reviewed and were negative
Vital Signs
Temp Pulse Resp BP Pulse Ox
99.8 F 89 18 129/69 96
08/01/24 09:00 08/01/24 09:00 08/01/24 09:00 08/01/24 09:00 08/01/24 09:00
Physical Exam
Physical Exam
Constitutional: No Acute Distress and Obese
Cardiovascular: Regular Rate and S1/S2; Negative Murmur or Rub
Pulmonary: Clear and Symmetric; Negative Wheezes, Rales or Rhonchi
Gastrointestinal: Soft, Non Tender, Non Distended and Normal Bowel Sounds
Skin: Warm, Dry and Rash (erythema, subcuticular bleeding, skin peeling of the L lower extremity. 1+ edema in the bilateral lower extremities); Negative Jaundice
Lab / Diagnostic Study Results
08/01/24 06:19
08/01/24 06:19
Abs Immat Gran (auto) 0.0 10^3/uL (0-0.05) 07/31/24 23:25
Absolute Neuts (auto) 3.9 10^3/uL (1.4-6.5) 07/31/24 23:25
Absolute Lymphs (auto) 0.2 10^3/uL (1.2-3.4) L 07/31/24 23:25
Absolute Monos (auto) 0.5 10^3/uL (0.1-0.6) 07/31/24 23:
Absolute Basos (auto) 0.0 10^3/uL (0-0.2) 07/31/24 23:
Immature Gran % 0.4 % (0-0.5) 07/31/24:
Neutrophils % 84.3 % (42.2-75.2) H 07/31/24:
Lymphocytes % 4.1 % (20.5-51.1) L 07/31/24:
Monocytes % 10.8 % (1.7-9.3) H 07/31/24:25
Eosinophils % 0.0 % (0-6) 07/31/24 23:25
Basophils % 0.4 % (0-2) 07/31/24:
Lactic Acid 1.3 mmol/L (0.7-2.0) 07/31/24 23:
Procalcitonin < 0.05 ng/ml (0.0-0.25) 07/31/24 23:25
Microbiology Results
Micro:
08/01/24 06:19 MRSA Screen - Pending
Nose
07/31/24 23:26 Blood Culture - Pending
Blood/Venous
07/31/24 23:26 Blood Culture - Pending
Blood/Venous
07/31/24 22:12 Influenza Types A & B (SELWYN) - Final
Nasal Swab Negative for Influenza A & B, NAAT
Negative results must be combined with clinical observations
and patient history.
Nucleic Acid Amplification test (NAAT)performed on the
[employer] platform.
Assessment / Plan
Fever
Nonpurulent cellulitis
Cutaneous T cell lymphoma
Class II obesity
- blood cultures x2 in progress
- CXR clear
- covid and influenza negative
- UA negative
- start cefazolin 2 gm IV q8 hr
- stop vancomycin
- refusing compression/elevation above the level of the heart which will slow improvement - will readdress with patient sunday if he remains in house
[2024-08-01] MEDS: ANCEF 10 IV ×2 (14:15→20:02)
[2024-08-01 15:13] VITALS: BP 152/80
--- NOTE | 2024-08-01 15:20 | PTCARENOTE ---
Patient ambulating to bathroom with slow, steady gait. Voiding in urinal without difficulty. Patient refused mouth care today. Spouse at bedside. Patient sitting in recliner chair with legs elevated.
[2024-08-01 17:08] VITALS: BP 133/86
[2024-08-01] MEDS: ZETIA 10 MG PO (17:09)
[2024-08-01] MEDS: LOVENOX 40 MG SC (17:09)
--- NOTE | 2024-08-01 17:52 | PTCARENOTE ---
Patient's will bring in Actimmune injection for patient to take this evening.
[2024-08-01 18:33] VITALS: BP 161/88
[2024-08-01] MEDS: TYLENOL 650 MG PO (18:33)
[2024-08-01] MEDS: NON-FORMULARY ITEM 66 MCG SC (20:13)
[2024-08-01] MEDS: COLACE 100 MG PO (22:17)
[2024-08-01 23:53] VITALS: BP 138/85
[2024-08-02] MEDS: ANCEF 10 IV ×3 (04:58→19:36)
[2024-08-02] MEDS: SYNTHROID 100 MCG PO (04:59)
[2024-08-02 07:00] VITALS: BP 112/78
[2024-08-02 07:00] LABS: % Basophils 0.4 % (0-2); % Immature Granulocytes 0.4 % (0-0.5); % Lymphocytes 9.2 % (20.5-51.1); % Monocytes 14.4 % (1.7-9.3); % Neutrophils 75.6 % (42.2-75.2); Absolute Lymphocytes 0.7 10^3/uL (1.2-3.4); Absolute Neutrophils 5.4 10^3/uL (1.4-6.5); Hematocrit 46.9 % (39.0-52.0); Hemoglobin 16.1 g/dL (13.0-18.0); Mean Corp Hgb Conc. 34.3 g/dL (33.0-37.0); Mean Corpuscular Hgb 30.4 pg (27.0-31.0); Mean Corpuscular Volume 88.5 fL (80.0-94.0); Mean Platelet Volume 9.8 fL (7.4-10.4); Nucleated Red Blood Cells % 0 % (-); Platelet Count 161 10^3/uL (130-400); Red Cell Dist. Width 13.3 % (11.5-14.5); White Blood Cell Count 7.1 10^3/uL (4.8-10.8)
[2024-08-02 07:19] LABS: ALT (SGPT) 36 U/L (0-50); AST (SGOT) 42 U/L (17-59); Alkaline Phosphatase 54 U/L (38-126); Blood Urea Nitrogen 29 mg/dl (9-20); Calcium 9.3 mg/dl (8.4-10.2); Carbon Dioxide 28 mmol/L (22-30); Chloride 96 mmol/L (98-107); Estimated Creatinine Clearance 69 ml/min; Glucose 143 mg/dl (70-99); Magnesium 1.6 mg/dl (1.6-2.3); Potassium 3.7 mmol/L (3.5-5.1); Sodium 136 mmol/L (135-145); Total Bilirubin 1.1 mg/dl (0.2-1.3); Total Protein 6.7 g/dl (6.3-8.2); eGFR > 60.00
[2024-08-02] MEDS: ASPIR LOW (ENTERIC COATED) 81 MG PO (08:51)
[2024-08-02] MEDS: Hygroton 50 MG PO (08:51)
[2024-08-02] MEDS: ALTACE 10 MG PO (08:51)
[2024-08-02] MEDS: THERAGRAN 1 TABLET PO (08:51)
[2024-08-02] MEDS: BACTROBAN 2% OINTMENT 1 APPLIC TOPICAL ×2 (08:52→19:36)
--- NOTE | 2024-08-02 09:04 | W.PN.ID1 ---
Date of Service
Date of Service: August 02, 2024
Today's Communication
Continue cefazolin for now.
Assessment / Plan
Fever
Nonpurulent cellulitis
Cutaneous T cell lymphoma
Class II obesity
- blood cultures x2 in progress, NGTD
- CXR clear
- covid and influenza negative
- UA negative
- Continue cefazolin 2 gm IV q8 hr (d2) for now.
- Moisturize left leg with Aquaphor
- refusing compression/elevation above the level of the heart which will slow improvement - will readdress with patient sunday if he remains in house
Chief Complaint
-: Cellulitis
Subjective / Review of Systems
Left leg not as swollen.
Vital Signs / Physical Exam
Vital Signs
Vital Signs
Temp Pulse Resp BP Pulse Ox
99.3 F 104 16 112/78 93
08/02/24 07:00 08/02/24 07:00 08/02/24 07:00 08/02/24 07:00 08/02/24 07:00
Selected Entries
08/01/24
18:33
Temp 101 F H
Physical Exam
Constitutional: No Acute Distress and Comfortable
Cardiovascular: Regular Rate and S1/S2
Pulmonary: Clear
Gastrointestinal: Soft, Non Tender and Non Distended
Genito-Urinary: Negative CVA Tenderness
Extremities: Other (LLE distal leg/ankle 1+ edema, no warmth, no erythema, skin dry)
Neurological: AO x 3
Objective Data
Lab Data
Lab Results
08/02/24 06:23
08/02/24 06:23
Estimated Creat Clear 69 ml/min 08/02/24 06:23
Lactic Acid 1.3 mmol/L (0.7-2.0) 07/31/24 23:25
Total Bilirubin 1.1 mg/dl (0.2-1.3) 08/02/24 06:23
AST 42 U/L (17-59) 08/02/24 06:23
ALT 36 U/L (0-50) 08/02/24 06:23
Alkaline Phosphatase 54 U/L (38-126) 08/02/24 06:23
Most recent labs reviewed.
Micro Results:
08/01/24 06:19 MRSA Screen - Final
Nose No Methicillin Resistant Staphylococcus aureus isolated.
07/31/24 23:26 Blood Culture - Preliminary
Blood/Venous No Growth in 24 hours- Final report to follow
07/31/24 23:26 Blood Culture - Preliminary
Blood/Venous No Growth in 24 hours- Final report to follow
07/31/24 22:12 Influenza Types A & B (SELWYN) - Final
Nasal Swab Negative for Influenza A & B, NAAT
Negative results must be combined with clinical observations
and patient history.
Nucleic Acid Amplification test (NAAT)performed on the
[employer] platform.
--- NOTE | 2024-08-02 11:00 | W.PN.HOSP.TC ---
Today's Communication/Plan
-
Assessment / Plan
Assessment / Plan
NAD
Scleral Anicteric
MMM
No JVD
CTABL
RRR, S1/S2
Soft, NT, ND, BS+
Warm, Dry
Left lower extremity with erythematous patchy, subcuticular bleeding that is nonblanchable/skin peeling
AAOx3
Calm
Sepsis secondary to soft tissue skin infection, nonpurulent
-Continue Ancef
-Follow-up blood cultures NGTD
Cutaneous T-cell lymphoma
-On chemo and Actimmune
-Followed by dermatology at [facility]
-Will need continued follow-up
-Recently had skin biopsy at [facility]
Hypertension
-Continue antihypertensives
Hyperlipidemia
-Continue Zetia and fenofibrate
SHYAM
-Not on CPAP
Hypothyroidism
-Continue levothyroxine
GERD
PPI
Anticipated Discharge: 24 - 48 hours
Subjective/Interval History
-
Date of Service: August 02, 2024
Seen and examined. No new complaints. No acute overnight events.
Objective Data
-
Labs:
Laboratory Results
08/02/24
06:23
WBC 7.1
Hgb 16.1
Hct 46.9
Plt Count 161
Sodium 136
Potassium 3.7
Chloride 96 L
Carbon Dioxide 28
BUN 29 H
Creatinine 1.2
Glucose 143 H
Calcium 9.3
Total Bilirubin 1.1
AST 42
ALT 36
Alkaline Phosphatase 54
Vital Signs:
Vital Signs
Temp Pulse Resp BP Pulse Ox
99.3 F 104 16 112/78 93
08/02/24 07:00 08/02/24 07:00 08/02/24 07:00 08/02/24 07:00 08/02/24 07:00
I&O
08/01/24 08/02/24 08/03/24
06:59 06:59 06:59
Intake Total 2320 / 2320
Output Total 2150 / 2150
Balance 170 / 170
[2024-08-02] MEDS: HYDROPHOR 1 APPLIC TOPICAL (11:14)
--- NOTE | 2024-08-02 12:57 | CM ---
manager ems reviewed patient's chart and met with patient and patient states he lives with his spouse in a split level home, with no steps to enter and 5 steps to kitchen and 15 steps to bed an bathroom, per patient he sleeps in his reclined,
patient is independent with adl;s and ambulation, no dme, patient drives, home when stable, no needs.
PCP: Dr. Romo
Pharmacy; [facility] in [place]
Plan; Home when stable, no needs.
[2024-08-02 15:00] VITALS: BP 100/67
[2024-08-02] MEDS: ZETIA 10 MG PO (17:11)
[2024-08-02] MEDS: LOVENOX 40 MG SC (17:11)
[2024-08-02] MEDS: NON-FORMULARY ITEM 2 GRAMS PO (19:33)
[2024-08-02] MEDS: NON-FORMULARY ITEM 360 MG PO (19:35)
[2024-08-02] MEDS: NON-FORMULARY ITEM 1 TABLET PO (19:37)
[2024-08-02] MEDS: NON-FORMULARY ITEM PO ×4 (20:04)
[2024-08-02] MEDS: REFRESH EYE DROPS (PF) 1 DROPS OPHTH (22:15)
[2024-08-02] MEDS: COLACE 100 MG PO (22:15)
[2024-08-02 23:28] VITALS: BP 134/90
[2024-08-03] MEDS: ANCEF 10 IV ×2 (05:04→11:36)
[2024-08-03] MEDS: SYNTHROID 100 MCG PO (05:04)
[2024-08-03 07:00] VITALS: BP 109/71
[2024-08-03] MEDS: Hygroton 50 MG PO (08:37)
[2024-08-03] MEDS: ALTACE 10 MG PO (08:37)
[2024-08-03] MEDS: THERAGRAN 1 TABLET PO (08:38)
[2024-08-03] MEDS: ASPIR LOW (ENTERIC COATED) 81 MG PO (08:38)
[2024-08-03] MEDS: BACTROBAN 2% OINTMENT 1 APPLIC TOPICAL (08:38)
[2024-08-03] MEDS: NON-FORMULARY ITEM 2 GRAMS PO (08:39)
[2024-08-03] MEDS: NON-FORMULARY ITEM 1 TABLET PO (08:40)
[2024-08-03] MEDS: HYDROPHOR 1 APPLIC TOPICAL (08:41)
--- NOTE | 2024-08-03 09:08 | W.PN.ID1 ---
Date of Service
Date of Service: August 03, 2024
Today's Communication
After 2pm dose of cefazolin 2 gm IV q8 hr (d3), transition to cephalexin 1000mg po tid through 08/10
Assessment / Plan
Fever - resolved
Nonpurulent cellulitis
Cutaneous T cell lymphoma
Class II obesity
- blood cultures x2 in progress, NGTD
- CXR clear
- covid and influenza negative
- UA negative
- After 2pm dose of cefazolin 2 gm IV q8 hr (d3), transition to cephalexin 1000mg po tid through 08/10
- Moisturize left leg with Aquaphor
- refusing compression/elevation above the level of the heart which will slow improvement - will readdress with patient sunday if he remains in house
Chief Complaint
-: Cellulitis
Subjective / Review of Systems
L leg much improved with Aquaphor.
Vital Signs / Physical Exam
Vital Signs
Vital Signs
Temp Pulse Resp BP Pulse Ox
98.6 F 88 18 109/71 95
08/03/24 07:00 08/03/24 07:00 08/03/24 07:00 08/03/24 07:00 08/03/24 07:00
Physical Exam
Constitutional: No Acute Distress and Comfortable
Cardiovascular: Regular Rate and S1/S2
Pulmonary: Clear
Gastrointestinal: Soft, Non Tender and Non Distended
Genito-Urinary: Negative CVA Tenderness
Extremities: Edema (BLE) and Other (LLE distal leg/ankle 1+ edema, no warmth, no significant erythema)
Neurological: AO x 3
Objective Data
Lab Data
Lab Results
08/02/24 06:23
08/02/24 06:23
Estimated Creat Clear 69 ml/min 03/29/25 06:23
Lactic Acid 1.3 mmol/L (0.7-2.0) 07/31/24 23:25
Total Bilirubin 1.1 mg/dl (0.2-1.3) 08/02/24 06:23
AST 42 U/L (17-59) 08/02/24 06:23
ALT 36 U/L (0-50) 08/02/24 06:23
Alkaline Phosphatase 54 U/L (38-126) 08/02/24 06:23
Most recent labs reviewed.
Micro Results:
07/31/24 23:26 Blood Culture - Preliminary
Blood/Venous No Growth in 48 hours- Final report to follow
07/31/24 23:26 Blood Culture - Preliminary
Blood/Venous No Growth in 48 hours- Final report to follow
08/01/24 06:19 MRSA Screen - Final
Nose No Methicillin Resistant Staphylococcus aureus isolated.
07/31/24 22:12 Influenza Types A & B ([facility]WYN) - Final
Nasal Swab Negative for Influenza A & B, NAAT
Negative results must be combined with clinical observations
and patient history.
Nucleic Acid Amplification test (NAAT)performed on the
[employer] platform.
Care Review
Plan reviewed with: Physician (Dr. Porfirio Newton)
--- NOTE | 2024-08-03 11:22 | W.PN.HOSP.TC ---
Today's Communication/Plan
-
DC home
More than 30 minutes spent in discharge including
Final examination of the patient
Summarizing hospital stay
Instructions for continuing care to all relevant caregivers
Preparation of discharge records, prescriptions, and referral forms
Total time spent (in minutes): 33mins
Assessment / Plan
Assessment / Plan
NAD
Scleral Anicteric
MMM
No JVD
CTABL
RRR, S1/S2
Soft, NT, ND, BS+
Warm, Dry
Left lower extremity with erythematous patchy, subcuticular bleeding that is nonblanchable is improving
AAOx3
Calm
Sepsis secondary to soft tissue skin infection, nonpurulent
-Continue Ancef, per infectious disease BMP transition to oral Keflex 1000 mg p.o. 3 times daily through August 10 after 2 PM dose has been completed of Ancef
-Follow-up blood cultures NGTD
Cutaneous T-cell lymphoma
-On chemo and Actimmune
-Followed by dermatology at [facility]
-Will need continued follow-up
-Recently had skin biopsy at [facility]
Hypertension
-Continue antihypertensives
Hyperlipidemia
-Continue Zetia and fenofibrate
SHYAM
-Not on CPAP
Hypothyroidism
-Continue levothyroxine
GERD
PPI
Anticipated Discharge: Today
Subjective/Interval History
-
Date of Service: August 03, 2024
Seen and examined. No new complaints. No acute overnight events
He understands that he will be discharged home after he receives IV antibiotics
He feels much better
He did ask if he should have a CT abdomen pelvis as he is not sure where this infection is coming from. I told him this infection is going from his left lower extremity, He did tell me that he had a crack below and behind his right small toe
Informed him of CT abdomen pelvis not indicated at this time as LFTs appears to be normal. There is no abdominal pain on exam without significant distention
Objective Data
-
Vital Signs:
Vital Signs
Temp Pulse Resp BP Pulse Ox
98.6 F 88 18 109/71 95
08/03/24 07:00 08/03/24 07:00 08/03/24 07:00 08/03/24 07:00 08/03/24 07:00
I&O
08/02/24 08/03/24 08/04/24
06:59 06:59 06:59
Intake Total 2320 / 2320 720 / 720
Output Total 2150 / 2150
Balance 170 / 170 720 / 720
--- NOTE | 2024-08-03 14:00 | W.DCSUMMARY ---
Discharge Summary
Discharge Data
Date of Admission: 08/01/24
Date of Discharge: 08/03/24
-
Pending Results: No
Hospital Course
74-year-old male who has a past medical history significant for cutaneous T-cell lymphoma since 2014 currently on oral chemotherapy and photopheresis, hypertension, hyperlipidemia, obesity, hypothyroid, SHYAM not on CPAP, BPH
Presented for a 1 day history of fever with associated left lower extremity swelling redness that had been ongoing for approximately 2 weeks. Diagnosed with cellulitis and was started on Keflex by his outpatient provider. Was evaluated by
infectious diseases while inpatient recommended continuation of Ancef while inpatient and then to transition to Keflex 1000 mg 3 times a day until 08/10/2024. Blood cultures have remained negative thus far.
Has known history of cutaneous T-cell lymphoma and will need continued outpatient follow-up at [facility] with dermatology. Will need follow-up for skin biopsy with [facility] which was completed prior to hospitalization.
Discharge Plan
-
Patient Disposition: Home (Routine Discharge)
Discharge Diagnosis/Procedures: Acute LLE Cellulitis, failed outpatient antibiotics related to under dosing
Condition: Fair
Diet: As tolerated
Activity: As tolerated
Activity Restrictions/Additional Instructions:
Presented for a 1 day history of fever with associated left lower extremity swelling redness that had been ongoing for approximately 2 weeks. Diagnosed with cellulitis and was started on Keflex by his outpatient provider. Was evaluated by
infectious diseases while inpatient recommended continuation of Ancef while inpatient and then to transition to Keflex 1000 mg 3 times a day until 08/10/2024. Blood cultures have remained negative thus far.
Has known history of cutaneous T-cell lymphoma and will need continued outpatient follow-up at [facility] with dermatology. Will need follow-up for skin biopsy with [facility] which was completed prior to hospitalization.
Referrals:
Aaron Romo I., DO [Family Provider] -
Prescriptions:
New
cephalexin 500 mg tablet
1,000 mg PO TID 7 Days Qty: 42 0RF
Continued
levothyroxine 100 MCG tablet
100 mcg PO DAILY@0600
acetaminophen [Tylenol Extra Strength] 500 MG tablet
1,000 mg PO BID@2300
ezetimibe 10 MG tablet
10 mg PO QPM
triamcinolone acetonide 0.1 % Cream
1 applic TOPICAL DAILYPRN PRN (Reason: skin patches )
bisacodyl [Dulcolax (bisacodyl)] 5 mg Tablet,Delayed Release (Dr/Ec)
15 mg PO DAILY@2300
ramipril 10 mg Capsule
10 mg PO DAILY
aspirin 81 mg Capsule
81 mg PO DAILY
docusate sodium 50 mg Capsule
100 mg PO DAILY@2300
therapeutic multivitamin Tablet
1 tab PO DAILY
chlorthalidone 50 mg Tablet
50 mg PO DAILY
bexarotene 75 mg Capsule
75 mg PO QPM
ibuprofen 600 mg Tablet
600 mg PO DAILY
coenzyme Q10 [CoQ-10] 100 mg Capsule
100 mg PO QPM
fenofibrate 160 mg Tablet
320 mg PO QPM
Rx Instructions:
take with 40mg tablet for total of 360mg
fenofibrate 40 mg Tablet
40 mg PO QPM
Rx Instructions:
take with 2 tablets of 160mg for total of 360mg
icosapent ethyl 1 gram Capsule
2 g PO BID@0800,1800
magnesium glycinate 470 mg tablet
1 tab PO DAILY@1200
pantoprazole 40 mg tablet,delayed release (DR/EC)
40 mg PO DAILY
Actimmune 100 mcg/0.5 mL solution
66 mcg SC MOWEFR@1800
ketoconazole 2 % Cream
1 applic TOPICAL DAILYPRN PRN (Reason: fungal foot infection)
mupirocin calcium 2 % Cream
1 applic TOPICAL BIDPRN PRN (Reason: skin infections, right leg, shoulder)
clobetasol 0.05 % ointment
1 applic TOPICAL BID
magnesium chloride [Mag 64] 64 mg tablet,delayed release (DR/EC)
64 mg PO BID
quercetin 500 mg Capsule
500 mg PO QPM
Discharge Orders:
Discharge Patient (As Directed); Ordered 08/03/24
Ordered By: Ronnell Newton
Discharge Date and Time
Print Language: CZECH
--- NOTE | 2024-08-03 14:28 | CM ---
Patient has been cleared for discharge to home today no needs.
Plan; Home today, no needs
== END 2024-08-03 14:48 | disposition home or self-care (01) | DRG 872 ==
LOC: 4 WEST ACU 01:29
PROVIDERS: Emergency Medicine; ADMITTING PHYSICIAN Internal Medicine; ATTENDING PHYSICIAN Hospitalist; CONSULT PHYSICIAN Student in an Organized Health Care Education/Training Program; EMERGENCY PHYSICIAN Student in an Organized Health Care Education/Training Program; FAMILY PHYSICIAN Internal Medicine
DX: A41.9 Sepsis, unspecified organism (principal); C84.A0 Cutaneous T-cell lymphoma, unspecified, unspecified site; L03.116 Cellulitis of left lower limb; E03.9 Hypothyroidism, unspecified; E11.9 Type 2 diabetes mellitus without complications; E66.812 Obesity, class 2; E78.00 Pure hypercholesterolemia, unspecified; I10 Essential (primary) hypertension; G47.33 Obstructive sleep apnea (adult) (pediatric); F41.9 Anxiety disorder, unspecified; N40.1 Benign prostatic hyperplasia with lower urinary tract symptoms; R33.8 Other retention of urine; T36.96XA Underdosing of unspecified systemic antibiotic, initial encounter; K21.9 Gastro-esophageal reflux disease without esophagitis; Z96.652 Presence of left artificial knee joint; Z86.011 Personal history of benign neoplasm of the brain; Z79.890 Hormone replacement therapy; Z79.899 Other long term (current) drug therapy; Z68.38 Body mass index [BMI] 38.0-38.9, adult; Z11.52 Encounter for screening for COVID-19; Z91.138 Patient's unintentional underdosing of medication regimen for other reason
CPT/HCPCS: 71046; 80048; 80053; 81003; 83605; 83735; 84145; 85025; 85027; 87040; 87070; 87502; 87811; 93005; 96365; 99285

== ENCOUNTER → 2024-08-12 11:25 | Outpatient (REF) | payer OTHER, SELFPAY ==
[2024-08-12 12:27] LABS: Erythrocyte Sed Rate 2 mm/hour (0-20)
[2024-08-12 14:15] LABS: Folate 16.3 ng/ml (2.76-20); Vitamin B12 287 pg/ml (239-931)
[2024-08-13 12:28] LABS: Lyme Antibody Screen, EIA Negative (Negative)
[2024-08-14 11:59] LABS: Syphilis/T. pallidum Ab Reflex Negative (Negative)
[2024-08-14 21:34] LABS: Copper, Serum 107.1 ug/dL (70.0-140.0)
[2024-08-14 22:58] LABS: Angiotensin-1-converting Enzym <10 U/L (16-85)
[2024-08-15 09:11] LABS: FTA-ABS/T. pallidum, IgG Serum Non Reactive (Non Reactive)
== END ==
LOC: REG 11:25
PROVIDERS: ATTENDING PHYSICIAN Internal Medicine
DX: H47.091 Other disorders of optic nerve, not elsewhere classified, right eye (principal); D51.9 Vitamin B12 deficiency anemia, unspecified; A52.15 Late syphilitic neuropathy
CPT/HCPCS: 36415; 82164; 82525; 82607; 82746; 84590; 85652; 86140; 86618; 86780

== ENCOUNTER → 2024-10-03 07:54 | Outpatient (REF) | payer OTHER, SELFPAY ==
[2024-10-03 09:03] LABS: HDL Cholesterol 23 mg/dl; LDL Cholesterol, Calculated 91 mg/dl; Total Cholesterol 167 mg/dl (50-199); Triglyceride 268 mg/dl (10-149); Very Low Density Lipoprotein 53 mg/dl (0-30)
== END ==
LOC: REG 07:54
PROVIDERS: ATTENDING PHYSICIAN Family Medicine; FAMILY PHYSICIAN Internal Medicine
DX: E78.2 Mixed hyperlipidemia (principal)
CPT/HCPCS: 36415; 80061

== ENCOUNTER 2024-10-30 06:12 | Day surgery (SDC) | payer OTHER, SELFPAY ==
[2024-10-30 07:30] LABS: Glucose - Point of Care 92 mg/dl (70-99)
[2024-10-30 07:32] VITALS: BP 107/73
[2024-10-30 07:39] VITALS: BMI 37.1
[2024-10-30 08:55] VITALS: BP 93/68
[2024-10-30 09:06] LABS: Glucose - Point of Care 94 mg/dl (70-99)
[2024-10-30 09:10] VITALS: BP 111/68
[2024-10-30 09:23] VITALS: BP 109/81
[2024-10-30 09:25] VITALS: BP 109/81
== END 2024-10-30 09:26 | disposition home or self-care (01) ==
LOC: GI 06:12
PROVIDERS: ATTENDING PHYSICIAN Internal Medicine
DX: Z12.11 Encounter for screening for malignant neoplasm of colon (principal); D12.0 Benign neoplasm of cecum; D12.2 Benign neoplasm of ascending colon; K62.1 Rectal polyp; K64.9 Unspecified hemorrhoids; K56.2 Volvulus; Q43.8 Other specified congenital malformations of intestine; Z86.0101 Personal history of adenomatous and serrated colon polyps; Z80.0 Family history of malignant neoplasm of digestive organs
CPT/HCPCS: 45385; 45380; 88305; 82962

== ENCOUNTER → 2025-03-10 14:03 | Outpatient (REF) | payer OTHER, SELFPAY | LOC: PAVMRI 14:03 | PROVIDERS: ATTENDING PHYSICIAN Neurological Surgery; FAMILY PHYSICIAN Internal Medicine | DX: D42.9 Neoplasm of uncertain behavior of meninges, unspecified (principal) | CPT/HCPCS: 70553; A9575 ==

== ENCOUNTER 2025-03-25 10:58 | Emergency (ER) | payer OTHER, SELFPAY ==
[2025-03-25 11:12] VITALS: BP 134/80
[2025-03-25 12:23] LABS: Hematocrit 50.0 % (39.0-52.0); Hemoglobin 16.9 g/dL (13.0-18.0); Mean Corp Hgb Conc. 33.8 g/dL (33.0-37.0); Mean Corpuscular Volume 92.4 fL (80.0-94.0); Nucleated Red Blood Cells % 0 % (-); Platelet Count 215 10^3/uL (130-400); Red Cell Dist. Width 13.1 % (11.5-14.5)
[2025-03-25] MEDS: LR 1000 IV (12:28)
[2025-03-25 12:40] LABS: ALT (SGPT) 41 U/L (0-50); AST (SGOT) 47 U/L (17-59); Albumin 4.4 g/dl (3.5-5.0); Alkaline Phosphatase 40 U/L (38-126); Blood Urea Nitrogen 18 mg/dl (9-20); Calcium 9.6 mg/dl (8.4-10.2); Carbon Dioxide 31 mmol/L (22-30); Chloride 99 mmol/L (98-107); Glucose 93 mg/dl (70-99); Potassium 3.8 mmol/L (3.5-5.1); Sodium 137 mmol/L (135-145); Total Protein 7.1 g/dl (6.3-8.2); eGFR > 60.00
--- NOTE | 2025-03-25 14:20 | ED.GENMED ---
History of Present Illness
General
Chief Complaint: Abdominal Symptoms
Time Seen by Provider: 03/25/25 12:01
History of Present Illness
History of Present Illness:
75-year-old male with history of hypertension and hyperlipidemia presents to the emergency department for evaluation of watery diarrhea for the past 4 days. Having difficulty keeping oral hydration and due to volume of diarrhea. Reporting mild
right-sided abdominal pain as well. No fevers or night sweats. No recent antibiotics in the past 3 months. Prior abdominal surgical history includes cholecystectomy
Past History
Past History
ED Past Medical History: Cancer (T- cell Lymphoma), GERD, HTN, Hypercholesterolemia, NIDDM, Hypothyroidism and Other (sleep apnea, BPH, urinary retention, Kidney stones, cutaneous T-cell lymphoma)
ED Past Surgical History: Brain (Craniotomy 05/02/2013 for removal of right frontal meningioma), Orthopedic (Left total knee replacement.), Urological (stent Kidney) and Other (hernia)
Social History
Tobacco: Non-smoker
Alcohol: None
Drug: None
Personal:
Living: with family
Family History
Family History: Other (Noncontributory)
Review of Systems
Review of Systems
Allergies reviewed?: Yes
All Other Systems: ROS reviewed and negative except as documented in HPI and ROS
Phy Exam
Physical Exam
Physical Exam:
GEN: Well appearing, NAD, WDWN
HEENT: Oral mucosa moist, no scleral icterus
Cardiac: Regular rate
Lung: No respiratory distress, no tachypnea
Abdomen: Soft, mild right sided tenderness, no focal right lower quadrant tenderness, no rigidity or peritoneal signs
MSK: No gross deformity or injuries
Skin: Good color, no pallor or jaundice, no rashes
Neuro: AO x3, moves all extremities freely
Psych: Calm, cooperative
Course
Orders/Labs/Results
Orders:
Orders
03/25/25 12:09
CMP [Comprehensive Metabolic Panel] Urgent
Complete Blood Count/With Diff Urgent
03/25/25 12:18
Lactated Ringers [Lr] 1,000 ml IV BOLUS
03/25/25 13:57
C DIFF [C difficile Antigen & Toxins] Urgent
PAT Source: Feces/Stool
Specimen Description:
Date Specimen was Collected: 03/25/25
Time Specimen was Collected: 13:56
Stool Culture Urgent
PAT Source: Feces/Stool
Specimen Description:
Date Specimen was Collected: 03/25/25
Time Specimen was Collected: 13:56
Abnormal Lab Results
03/25/25
12:09
MCH 31.2 H pg
(27.0-31.0)
Absolute Lymphs (auto) 0.7 L 10^3/uL
(1.2-3.4)
Absolute Monos (auto) 0.7 H 10^3/uL
(0.1-0.6)
Lymphocytes % 10.9 L %
(20.5-51.1)
Monocytes % 11.0 H %
(1.7-9.3)
Carbon Dioxide 31 H mmol/L
(22-30)
03/25/25 12:09
03/25/25 12:09
Vital Signs
Initial and Last Documented VS:
Initial Vital Signs
Temp Pulse Resp BP Pulse Ox
97.8 F 86 19 134/80 95
03/25/25 11:12 03/25/25 11:12 03/25/25 11:12 03/25/25 11:12 03/25/25 11:12
Last Documented Vital Signs
Temp Pulse Resp BP Pulse Ox
97.8 F 85 16 130/80 95
03/25/25 11:12 03/25/25 14:30 03/25/25 14:30 03/25/25 14:30 03/25/25 14:30
MDM/Problems Addressed
MDM/Problems Addressed:
Patient's labs are reassuring, given IV fluids for hydration in the ED. Stool was sent for culture and C. difficile, he is suitable for continued outpatient management, no indication for empiric antibiotics at this time
*Pulse Oximetry
SaO2: 95
Oxygen Mode of Delivery: Room air
Patient hypoxic: no
*Critical Care Note
Total Time (30-74mins, 75-104mins- exclusive of procedures): Not Applicable
ED Attending Note
-
Portions of this chart may have been created with voice recognition software.� Occasional wrong word or��sound alike� substitutions may have occurred due to the inherent limitations of voice recognition software.
Discharge Plan
Departure
Patient Disposition: Home (Routine Discharge)
Date of Disposition: 03/25/25
Time of Disposition: 14:20
Patient with high blood pressure during this ER visit?: No
Discharge Problem:
Diarrhea
Instructions: Diarrhea in teens and adults
Prescriptions:
No Action
levothyroxine 100 MCG tablet
100 mcg PO DAILY@0600
acetaminophen [Tylenol Extra Strength] 500 MG tablet
1,000 mg PO BID@2300
ezetimibe 10 MG tablet
10 mg PO QPM
triamcinolone acetonide 0.1 % Cream
1 applic TOPICAL DAILYPRN PRN (Reason: skin patches )
bisacodyl [Dulcolax (bisacodyl)] 5 mg Tablet,Delayed Release (Dr/Ec)
15 mg PO DAILY@2300
ramipril 10 mg Capsule
10 mg PO DAILY
aspirin 81 mg Capsule
81 mg PO DAILY
docusate sodium 50 mg Capsule
100 mg PO DAILY@2300
therapeutic multivitamin Tablet
1 tab PO DAILY
chlorthalidone 50 mg Tablet
50 mg PO DAILY
bexarotene 75 mg Capsule
75 mg PO QPM
ibuprofen 600 mg Tablet
600 mg PO DAILY
coenzyme Q10 [CoQ-10] 100 mg Capsule
100 mg PO QPM
fenofibrate 160 mg Tablet
320 mg PO QPM
Rx Instructions:
take with 40mg tablet for total of 360mg
fenofibrate 40 mg Tablet
40 mg PO QPM
Rx Instructions:
take with 2 tablets of 160mg for total of 360mg
icosapent ethyl 1 gram Capsule
2 g PO BID@0800,1800
magnesium glycinate 470 mg tablet
1 tab PO DAILY@1200
pantoprazole 40 mg tablet,delayed release (DR/EC)
40 mg PO DAILY
Actimmune 100 mcg/0.5 mL solution
66 mcg SC MOWEFR@1800
ketoconazole 2 % Cream
1 applic TOPICAL DAILYPRN PRN (Reason: fungal foot infection)
Benefiber (guar gum) Packet
1 tbsp PO TID
mupirocin calcium 2 % Cream
1 applic TOPICAL BIDPRN PRN (Reason: skin infections, right leg, shoulder)
clobetasol 0.05 % ointment
1 applic TOPICAL BID
magnesium chloride [Mag 64] 64 mg tablet,delayed release (DR/EC)
64 mg PO BID
quercetin 500 mg Capsule
500 mg PO QPM
Referrals:
UNKNOWN - PT DOES,NOT KNOW [Family Provider]
Interventions
Interventions:
*Risk Screen - Suicide Last Done: 03/25/25 11:12
*General Assessment Last Done: 03/25/25 11:12
*Neglect/Abuse Screening Last Done: 03/25/25 11:12
*ED- Fall Risk Assessment Last Done: 03/25/25 11:52
*ED COVID-19 Vaccine History Last Done: 03/25/25 11:52
*ED Influenza Vaccine History Last Done: 03/25/25 11:52
*Nursing Disposition Last Done: 03/25/25 14:31
WZ-Jarquf-Worabnjlny Assessment Last Done: 03/25/25 11:52
Discharge Date and Time
Discharge Date/Time: 03/25/25 14:31
Print Language: ANGUILLAN
[2025-03-25 14:30] VITALS: BP 130/80
== END 2025-03-25 14:31 | disposition home or self-care (01) ==
LOC: EMR 10:58
PROVIDERS: Physician Assistant; EMERGENCY PHYSICIAN Emergency Medicine
DX: R19.7 Diarrhea, unspecified (principal); E11.9 Type 2 diabetes mellitus without complications; I10 Essential (primary) hypertension; E78.00 Pure hypercholesterolemia, unspecified; G47.30 Sleep apnea, unspecified; E03.9 Hypothyroidism, unspecified; K21.9 Gastro-esophageal reflux disease without esophagitis; N40.1 Benign prostatic hyperplasia with lower urinary tract symptoms; R33.8 Other retention of urine; Z79.82 Long term (current) use of aspirin; Z85.72 Personal history of non-Hodgkin lymphomas; Z86.011 Personal history of benign neoplasm of the brain; Z96.652 Presence of left artificial knee joint
CPT/HCPCS: 99284; 96360; 80053; 85025; 87045; 87046; 87324; 87427; 87449

== ENCOUNTER 2025-04-04 12:22 | Emergency (ER) | payer OTHER, SELFPAY ==
[2025-04-04 12:24] VITALS: BP 157/89
[2025-04-04 13:50] VITALS: BP 149/93
[2025-04-04 13:52] VITALS: BMI 36.4
[2025-04-04 14:00] VITALS: BP 120/81
[2025-04-04 14:04] LABS: COVID-19 Antigen Negative (Negative)
--- NOTE | 2025-04-04 14:19 | ED.GENMED ---
History of Present Illness
General
Chief Complaint: Cough
Source: patient
Exam Limitations: none
Time Seen by Provider: 04/04/25 13:15
Nursing documentation reviewed up to this point in time: agreed with
History of Present Illness
History of Present Illness:
The patient is a pleasant 75-year-old man who reports ongoing mucousy cough for 1 week. Patient reports that the mucus is yellow and thick. At times it makes him choke. Patient reports chills but no fever. Patient denies chest pain and shortness
of breath. Patient denies leg pain and leg swelling.
Past History
Past History
ED Past Medical History: Cancer (T- cell Lymphoma), GERD, HTN, Hypercholesterolemia, NIDDM, Hypothyroidism and Other (sleep apnea, BPH, urinary retention, Kidney stones, cutaneous T-cell lymphoma)
ED Past Surgical History: Brain (Craniotomy 05/02/2013 for removal of right frontal meningioma), Orthopedic (Left total knee replacement.), Urological (stent Kidney) and Other (hernia)
Social History
Tobacco: Non-smoker
Alcohol: None
Drug: None
Personal:
Living: with family
Employment: Other
Family History
Family History: Other (Noncontributory)
Review of Systems
Review of Systems
Allergies reviewed?: Yes
All Other Systems: ROS reviewed and negative except as documented in HPI and ROS
Constitutional: Reports fatigue and chills
EENT: Reports no symptoms
Respiratory: Reports cough
Cardiac: Reports no symptoms
ABD/GI: Reports no symptoms
: Reports no symptoms
Musculoskeletal: Reports no symptoms
Skin: Reports no symptoms
Neurological: Reports no symptoms
Endocrine: Reports no symptoms
Hematologic/Lymphatic: Reports no symptoms
Psychiatric: Reports no symptoms
Phy Exam
Physical Exam
Physical Exam:
Physical Exam
General: no apparent distress, not acutely ill
Neck: supple. no meningeal signs. normal psoterior pharynx
Heart: s1/s2 regular rate and rhythm,
Lungs: Questionable crackles left lower lobe. No tachypnea. Frequent coughing
Abdomen: normal bowel sounds. not tender. no CVAT
Neuro: alert and oriented. no focal neurological deficits
Skin: no rash
Psychiatric: well kept. interactive and cooperative
Extremities: no edema. no calf tenderness. negative homans. good distal pulses
Course
Orders/Labs/Results
Orders:
Orders
04/04/25 13:36
Chest [CR Chest - 2 Views ] Urgent
Comment:
Reason For Exam: cough
04/04/25 13:37
COVID-19 Antigen Urgent
Source: Nasal Swab
INF RAPID [Influenza A+B Rapid Molecular] Urgent
PAT Source: Nasal Swab
Specimen Description:
04/04/25 14:34
Doxycycline [Vibramycin] 100 mg PO NOW STA
Vital Signs
Initial and Last Documented VS:
Initial Vital Signs
Temp Pulse Resp BP Pulse Ox
97.5 F 74 18 157/89 94
04/04/25 12:24 04/04/25 12:24 04/04/25 12:24 04/04/25 12:24 04/04/25 12:24
Last Documented Vital Signs
Temp Pulse Resp BP Pulse Ox
97.5 F 72 15 120/81 95
04/04/25 12:24 04/04/25 14:15 04/04/25 14:15 04/04/25 14:00 04/04/25 14:20
MDM/Problems Addressed
Differential Diagnosis Includes:
Acute viral illness, acute pneumonia, CHF
MDM/Problems Addressed:
Patient presents with acute cough
Chronic conditions affecting care: HTN
Acute Exacerbation and/or Progression of Chronic Illness:
Patient is acutely hypertensive, however, his blood pressure is now improved
Acute Exacerbation and/or Progression of Chronic Illness: HTN
*Radiology
Radiology exam reviewed: preliminary read by ED provider (Chest x-ray reviewed by me. No acute disease. Cannot fully see the left heart border) and radiology read reviewed
*Pulse Oximetry
SaO2: 95
Oxygen Mode of Delivery: Room air
Patient hypoxic: no
*EKG
Interpreted by ED Provider?: NA
*Rehabilitation Clerk Interpretation
Rate: Rehabilitation Clerk- N/A
*Critical Care Note
Total Time (30-74mins, 75-104mins- exclusive of procedures): Not Applicable
Data Reviewed
Review of Other/Old Records Reveals: Labs (Lab work reviewed from 03/25/2025)
Source: patient and spouse
Patient Management
Social determinants of health affecting care: Living situation and Strong social support
Update Note
Update Note:
Given that patient has questionable crackles in left lower base, has chills, and thick yellow mucus, decision made to treat patient for possible pneumonia with doxycycline
ED Attending Note
-
Portions of this chart may have been created with voice recognition software.� Occasional wrong word or��sound alike� substitutions may have occurred due to the inherent limitations of voice recognition software.
Discharge Plan
Departure
Patient Disposition: Home (Routine Discharge)
Date of Disposition: 04/04/25
Time of Disposition: 14:34
Patient with high blood pressure during this ER visit?: Yes
Condition: Good
Covid-19: Not Applicable
Discharge Problem:
Cough
Instructions: Cough, Adult (DC), BLOOD PRESSURE
Prescriptions:
New
doxycycline hyclate 100 mg capsule
100 mg PO BID Qty: 13 0RF
No Action
levothyroxine 100 MCG tablet
100 mcg PO DAILY@0600
acetaminophen [Tylenol Extra Strength] 500 MG tablet
1,000 mg PO BID@12,2300
ezetimibe 10 MG tablet
10 mg PO QPM
triamcinolone acetonide 0.1 % Cream
1 applic TOPICAL DAILYPRN PRN (Reason: skin patches )
bisacodyl [Dulcolax (bisacodyl)] 5 mg Tablet,Delayed Release (Dr/Ec)
15 mg PO DAILY@2300
ramipril 10 mg Capsule
10 mg PO DAILY
aspirin 81 mg Capsule
81 mg PO DAILY
docusate sodium 50 mg Capsule
100 mg PO DAILY@2300
therapeutic multivitamin Tablet
1 tab PO DAILY
chlorthalidone 50 mg Tablet
50 mg PO DAILY
bexarotene 75 mg Capsule
75 mg PO QPM
ibuprofen 600 mg Tablet
600 mg PO DAILY
coenzyme Q10 [CoQ-10] 100 mg Capsule
100 mg PO QPM
fenofibrate 160 mg Tablet
320 mg PO QPM
Rx Instructions:
take with 40mg tablet for total of 360mg
fenofibrate 40 mg Tablet
40 mg PO QPM
Rx Instructions:
take with 2 tablets of 160mg for total of 360mg
icosapent ethyl 1 gram Capsule
2 g PO BID@0800,1800
magnesium glycinate 470 mg tablet
1 tab PO DAILY@1200
pantoprazole 40 mg tablet,delayed release (DR/EC)
40 mg PO DAILY
Actimmune 100 mcg/0.5 mL solution
66 mcg SC MOWEFR@1800
ketoconazole 2 % Cream
1 applic TOPICAL DAILYPRN PRN (Reason: fungal foot infection)
Benefiber (guar gum) Packet
1 tbsp PO TID
mupirocin calcium 2 % Cream
1 applic TOPICAL BIDPRN PRN (Reason: skin infections, right leg, shoulder)
clobetasol 0.05 % ointment
1 applic TOPICAL BID
magnesium chloride [Mag 64] 64 mg tablet,delayed release (DR/EC)
64 mg PO BID
quercetin 500 mg Capsule
500 mg PO QPM
Referrals:
Aaron Romo I., DO [Family Provider, Internal Medicine]
Interventions
Interventions:
*Risk Screen - Suicide Last Done: 04/04/25 12:24
*General Assessment Last Done: 04/04/25 12:28
*Neglect/Abuse Screening Last Done: 04/04/25 12:28
*ED COVID-19 Vaccine History Last Done: 04/04/25 13:52
*ED Influenza Vaccine History Last Done: 04/04/25 12:28
Discharge Date and Time
Print Language: FAROESE
[2025-04-04] MEDS: VIBRAMYCIN 100 MG PO (14:47)
== END 2025-04-04 14:55 | disposition home or self-care (01) ==
LOC: EMR 12:22
PROVIDERS: EMERGENCY PHYSICIAN Emergency Medicine; FAMILY PHYSICIAN Internal Medicine
DX: R05.9 Cough, unspecified (principal); R53.83 Other fatigue; R68.83 Chills (without fever); Z11.52 Encounter for screening for COVID-19; I10 Essential (primary) hypertension; E78.00 Pure hypercholesterolemia, unspecified; E11.9 Type 2 diabetes mellitus without complications; E03.9 Hypothyroidism, unspecified; G47.30 Sleep apnea, unspecified; N40.1 Benign prostatic hyperplasia with lower urinary tract symptoms; Z79.82 Long term (current) use of aspirin; Z96.652 Presence of left artificial knee joint; Z85.72 Personal history of non-Hodgkin lymphomas; Z85.828 Personal history of other malignant neoplasm of skin; Z87.442 Personal history of urinary calculi; Z79.84 Long term (current) use of oral hypoglycemic drugs; Z88.1 Allergy status to other antibiotic agents; Z88.8 Allergy status to other drugs, medicaments and biological substances; Z91.048 Other nonmedicinal substance allergy status
CPT/HCPCS: 99283; 71046; 87502; 87811